=== PATIENT | male | born 1960 | race Caucasian/White ===

== ENCOUNTER 2019-06-18 13:34 | Outpatient (CLI) | payer OTHER ==
--- NOTE | 2019-06-18 16:13 | XRAY Report ---
Reason: HEEL PAIN,RIGHT Procedure Date: 06/18/2019 Accession Number: [id number] / [id number] Procedure: XRN - Foot 2 View RT CPT Code: FULL RESULT: EXAM: RIGHT FOOT RADIOGRAPHY EXAM DATE: 06/18/2019 01:47 PM. CLINICAL HISTORY: HEEL Pain, right. COMPARISON: None. TECHNIQUE: 3 views. FINDINGS: Bones: No evidence of fracture. There is a tiny posterior calcaneal bone spur. Joints: Normal. No subluxations. Soft Tissues: Normal. No soft tissue swelling. IMPRESSION: Tiny posterior calcaneal bone spur. Otherwise negative examination. RADIA
== END 2019-06-18 13:35 | disposition home or self-care (01) ==
LOC: DI.N 13:34
PROVIDERS: ATTEND Physician Assistant Medical
DX: M77.31 Calcaneal spur, right foot (principal)

== ENCOUNTER 2019-12-22 13:17 | Emergency (ER) | payer OTHER ==
--- NOTE | 2019-12-22 13:19 | ED Physician Documentation ---
PD HPI UPPER EXT INJURY - Stated complaint Stated Complaint: L HAND LAC - History of Present Illness Location: Left, Hand Review of Systems Skin: reports: Laceration (s) Neurologic: denies: Focal weakness, Numbness PD PAST MEDICAL HISTORY - Past Medical History Cardiovascular: None Respiratory: None Neuro: None - Allergies Allergies/Adverse Reactions: Allergies Allergy/AdvReac Type Severity Reaction Status Date / Time Penicillins Allergy Intermediate Unknown Verified 12/22/19 14:02 PD ED PE NORMAL - Vitals Vital signs reviewed: Yes - General General: Alert and oriented X 3, Well developed/nourished - Derm Derm: Normal color, Warm and dry - Extremities Extremities: Other (The left palm shows a 1-1/2 cm laceration/puncture consistent with a screwdriver tip. It is just subcutaneous with no foreign body and no active bleeding. It does open with hand movement. There is no feeling of swelling or pressure deeper within the palmar hand structures. There is a small area of swelling and really ecchymosis over the dorsum of the hand overlying a small surface vessel. The swelling seems to be just subcutaneous and does not feel to extend deeper. I think the 2 injuries are separate and the swelling on the dorsum is not connected to the puncture in the palm.) - Neuro Neuro: Alert and oriented X 3, No motor deficit (Good flexion of the fingers at all joints strongly without any pain in the palm), No sensory deficit Results - Vitals Vitals: Vital Signs - 24 hr 12/22/19 12/22/19 13:23 14:09 Temperature 37.2 C 36.6 C Heart Rate 83 80 Respiratory 16 16 Rate Blood Pressure 152/107 H 142/89 H O2 Saturation 98 98 Oxygen O2 Source Room air Procedures - Laceration (location) left palm Length in cm: 1.5 Wound type: Linear, Into subcut fat, Clean Neurovascular status: Sensory intact, Motor intact, Vascular intact Tendon involvement: Tendon intact Anesthesia: Lidocaine 1% with epi Wound Preparation: Wound explored, To the base. No: FB identified Skin layer closure: Nylon, Interrupted, Size #-0 - enter number (4), Sutures - enter # (4) Other: Patient tolerated well, No complications, Neurovascular intact, Dressing applied, Tetanus UTD Complexity: Simple PD MEDICAL DECISION MAKING - ED course Complexity details: considered differential (the bruising/local swelling on dorsum of the hand seems local there and subcut, not feeling swelling/tender deeper. So seems separate from the puncture in palm (he says he pulled hand away quickly when happened so might have struck back of hand).), d/w patient Departure - Departure Disposition: 01 Home, Self Care Clinical Impression: Laceration of palm Qualifiers: Encounter type: initial encounter Laterality: left Qualified Code(s): S61.412A - Laceration without foreign body of left hand, initial encounter Hand contusion Qualifiers: Encounter type: initial encounter Laterality: left Qualified Code(s): S60.222A - Contusion of left hand, initial encounter Condition: Stable Record reviewed to determine appropriate education?: Yes Instructions: ED Laceration Hand Follow-Up: Raymon Funk MD [Primary Care Provider] - Comments: I think the local swelling and early bruising on the back of the hand is a separate injury and not directly from the screwdriver puncture. Even so, there does not seem to be swelling or tenderness or muscle or tendon dysfunction through the main part of the hand so I think you are okay for regular use. For the laceration, it is okay to wash and shower. Clean off the wound twice a day with soap and water, or peroxide and water. Apply some antibiotic ointment to it to keep it moist. Also to watch for signs of infection such as purulence, redness or increasing pain. Return to your primary care or the ER at the specified time for suture removal. Suture removal 8 to 10 days. Discharge Date/Time: 12/22/19 14:10
[2019-12-22] MEDS ORDERED: TETANUS/DIPHTHERIA/PERTUSSIS 0.5 ML SYRINGE IM ONE (13:52)
[2019-12-22 14:11] VITALS: BP 142/89
== END 2019-12-22 14:10 | disposition home or self-care (01) ==
LOC: ED 13:17
DX: S61.432A Puncture wound without foreign body of left hand, initial encounter (principal); S60.222A Contusion of left hand, initial encounter; W27.0XXA Contact with workbench tool, initial encounter
CPT/HCPCS: 12001; 90471; 99283

== ENCOUNTER 2021-04-27 08:00 | Outpatient (CLI) | payer OTHER ==
[2021-04-27 12:25] LABS: BASOPHILS # (AUTO) 0.1 10^3/uL (0.0-0.1); BASOPHILS % (AUTO) 1.2 %; EOSINOPHILS # (AUTO) 0.6 10^3/uL (0.0-0.7); HCT - HEMATOCRIT 46.9 % (42.0-52.0); HGB - HEMOGLOBIN 15.7 g/dL (14.0-18.0); MEAN CORPUSCULAR HEMOGLOBIN 28.5 pg (27.0-31.0); MEAN CORPUSCULAR HGB CONC 33.5 g/dL (32.0-36.0); MEAN CORPUSCULAR VOLUME 85.3 fL (80.0-94.0); MEAN PLATELET VOLUME 10.7 fL (7.4-11.4); MONOCYTES # (AUTO) 0.9 10^3/uL (0.0-1.0); MONOCYTES % (AUTO) 11.8 %; NEUTROPHILS % (AUTO) 52.7 %; PLT - PLATELET COUNT 342 10^3/uL (130-450); RED CELL DISTRIBUTION WIDTH 13.2 % (12.0-15.0); WHITE BLOOD COUNT 7.6 x10^3/uL (4.8-10.8)
[2021-04-27 12:46] LABS: GLUCOSE, URINE (UA) NEGATIVE (NEGATIVE); KETONES,URINE (UA) 40 mg/dL (NEGATIVE); LEUKOCYTE ESTERASE, URINE NEGATIVE (NEGATIVE); NITRITE,URINE NEGATIVE (NEGATIVE); OCCULT BLOOD,URINE NEGATIVE (NEGATIVE); PROTEIN,URINE NEGATIVE (NEGATIVE); UROBILINOGEN,URINE 0.2 (NORMAL) E.U./dL (NORMAL)
[2021-04-27 12:50] LABS: CLARITY,URINE CLOUDY (CLEAR)
[2021-04-27 12:59] LABS: ALBUMIN 4.7 g/dL (3.2-5.5); ALBUMIN/GLOBULIN RATIO 1.6 (1.0-2.2); BILIRUBIN,TOTAL 1.3 mg/dL (0.2-1.0); CALCIUM 9.9 mg/dL (8.5-10.3); CREATININE 1.2 mg/dL (0.6-1.2); POTASSIUM 3.4 mmol/L (3.5-5.0); TOTAL PROTEIN 7.6 g/dL (6.7-8.2)
[2021-04-27 13:02] LABS: BILIRUBIN,URINE MODERATE (NEGATIVE); ICTOTEST,URINE POSITIVE
[2021-04-27 13:10] LABS: RBC,URINE None Seen /HPF (0-5); SQUAMOUS EPITHELIAL CELL,UR NONE SEEN (<= Few); WBC,URINE 0-3 /HPF (0-3)
[2021-04-27 13:11] LABS: AMORPHOUS SEDIMENT,UR Marked /LPF; BACTERIA,URINE Moderate /HPF (None Seen)
== END 2021-04-27 23:59 | disposition home or self-care (01) ==
LOC: LAB.N 08:00
PROVIDERS: ATTEND Family Medicine
DX: R10.9 Unspecified abdominal pain (principal)
CPT/HCPCS: 36415; 80053; 81001; 82150; 83690; 85025; 87086

== ENCOUNTER 2021-04-27 16:56 | Emergency (ER) | payer OTHER ==
[2021-04-27] MEDS ORDERED: SODIUM CHLORIDE 0.9% 1,000 ML IV STA (19:13)
--- NOTE | 2021-04-27 19:25 | ED Physician Documentation ---
PD HPI ABD PAIN - Stated complaint Stated Complaint: ABD PAIN - Chief complaint Chief Complaint: Abd Pain - History obtained from History obtained from: Patient - History of Present Illness Timing - onset: How many months ago (1.5) Timing - duration: Months (1.5) Timing - details: Gradual onset Pain level max: 8 Pain level now: 5 Quality: Cramping, Aching, Pain Location: All over / everywhere Radiation: No: Chest, , Lower back, Left flank, Left shoulder, Right flank, Right shoulder, Upper back Improved by: Other (nothing) Worsened by: Other (nothing) Associated symptoms: Nausea, Diarrhea, Constipation. No: Fever, Vomiting, Hematemesis, Melena, Hematochezia, Dysuria, Hematuria Recently seen: Clinic (seen in clinic this am for same. told to come here if pain worsened.) Review of Systems Ten Systems: 10 systems reviewed and negative Constitutional: denies: Fever, Chills Respiratory: denies: Cough GI: denies: Vomiting : denies: Dysuria, Frequency, Hesitancy Skin: denies: Rash PD PAST MEDICAL HISTORY - Past Medical History Past Medical History: Yes Cardiovascular: None Respiratory: None Neuro: None Endocrine/Autoimmune: None GI: GERD : None HEENT: None Psych: None Musculoskeletal: None Derm: None - Past Surgical History Past Surgical History: No - Present Medications Home Medications: Ambulatory Orders Medication Instructions Recorded Confirmed Meloxicam [Mobic] 7.5 mg PO BID PRN #20 tablet 04/27/21 Nitrofurantoin [Macrobid] 100 mg PO BID #10 cap 04/27/21 - Allergies Allergies/Adverse Reactions: Allergies Allergy/AdvReac Type Severity Reaction Status Date / Time Penicillins Allergy Intermediate Unknown Verified 04/27/21 17:09 - Social History Does the pt smoke?: No Smoking Status: Never smoker Does the pt drink ETOH?: No Does the pt have substance abuse?: No - Immunizations Immunizations are current?: Yes - POLST Patient has POLST: No PD ED PE NORMAL - Vitals Vital signs reviewed: Yes - General General: Alert and oriented X 3, No acute distress, Well developed/nourished - HEENT HEENT: PERRL, Moist mucous membranes - Neck Neck: Supple, no meningeal sign - Cardiac Cardiac: RRR, Strong equal pulses - Respiratory Respiratory: No respiratory distress, Clear bilaterally - Abdomen Abdomen: Soft, Non tender, Non distended, Other (mild diffuse TTP without peritoneal signs. ) - Back Back: No CVA TTP, No spinal TTP - Derm Derm: Warm and dry - Extremities Extremities: No edema - Neuro Neuro: Alert and oriented X 3 - Psych Psych: Normal mood, Normal affect Results - Vitals Vitals: Oxygen O2 Source Room air - Rads (name of study) CT abd/pelvis Radiology: Final report received, EMP read contemporaneously, See rad report RUQ US Radiology: Final report received, EMP read contemporaneously, See rad report PD MEDICAL DECISION MAKING - ED course Complexity details: reviewed results, re-evaluated patient, considered differential, d/w patient ED course: 60-year-old male with intermittent abdominal pain for the past 1.5 months. He appears to have several enlarged retroperitoneal lymph nodes. He has what appears to be potential metastatic disease throughout his liver as well. He has an appointment with his doctor in the morning. He will follow up then for further care and referral. Patient also has a UTI and we will treat him for this. Patient counseled regarding signs and symptoms for which I believe and urgent re-evaluation would be necessary. Patient with good understanding of and agreement to plan and is comfortable going home at this time This document was made in part using voice recognition software. While efforts are made to proofread this document, sound alike and grammatical errors may occur. IMPRESSION: 1. Enlarged retroperitoneal lymph nodes with infiltration of the surrounding fat as well as increased number of mesenteric lymph nodes and jacqueline mesentery appearance. Findings are nonspecific, but suspicious for a neoplastic process such as lymphoma. 2. Nonspecific small hypoattenuating lesions in the liver most likely represent small cysts or hemangiomas, although metastatic disease is not excluded. Liver protocol contrast-enhanced MRI or CT could be obtained for further evaluation if indicated clinically. 3. Focal soft tissue attenuation of the gallbladder fundus may represent small gallstones versus adenomyomatosis or wall thickening. Targeted ultrasound could be obtained if indicated clinically. No signs of acute cholecystitis. 4. Diffuse bladder wall thickening may be related to underdistention, but correlation with urinalysis is recommended to exclude cystitis. IMPRESSION: 1. Cholelithiasis without sonographic evidence of acute cholecystitis. 2. Several hepatic hypodensities, some of vascularity suspicious for neoplasm/metastatic disease. 3. Mild hepatic hyperechogenicity suggesting background of hepatic steatosis. 4. Concordant with preliminary report. Departure - Departure Disposition: 01 Home, Self Care Clinical Impression: Retroperitoneal lymphadenopathy Abdominal pain Qualifiers: Abdominal location: unspecified location Qualified Code(s): R10.9 - Unspecified abdominal pain UTI (urinary tract infection) Qualifiers: Urinary tract infection type: acute cystitis Hematuria presence: without hematuria Qualified Code(s): N30.00 - Acute cystitis without hematuria Condition: Good Instructions: ED Abdominal Pain Unkn Cause, ED UTI Cystitis Male Follow-Up: Armaan Brooks MD [Primary Care Provider] - Within 1 week SURENDRA CARRANZA MD [Physician No Access] - Tomorrow Prescriptions: Nitrofurantoin [Macrobid] 100 mg PO BID #10 cap Meloxicam [Mobic] 7.5 mg PO BID PRN #20 tablet PRN Reason: Pain Comments: Follow up with your doctor for further care. The cause of your symptoms is unclear. You have several enlarge lymph nodes in your abdomen. You have multiple gallstones. There is concern for possible metastases in your liver based upon your ultrasound. The official report will be available in the morning for Dr. Carranza. Dr. Carranza can refer you to oncology for further care. You may need further testing with Dr. Carranza as well tomorrow. ABDOMEN: Lung bases: Lung bases are clear. Heart size is normal. Solid organs: Diffuse hypoattenuation of the liver is most likely secondary to fatty infiltration. Scattered small low-density lesions in the liver are nonspecific and may represent cysts. Liver and spleen are normal in size and enhancement. There aren't palpable gallstones versus focal gallbladder wall thickening or adenomyomatosis at the fundus. Biliary system is non dilated. Pancreas demonstrates fatty infiltration. No adrenal nodules. Spleen is normal i n size. Kidneys demonstrate normal size and enhancement, without hydronephrosis. Peritoneum and bowel: Bowel loops demonstrate normal wall thickness and caliber. Normal appendix. No free fluid or air. Nodes and vessels: Increased number of mesenteric and retroperitoneal lymph nodes are seen with mild infiltration of the surrounding fat. The retroperitoneal lymph nodes are significantly increased in size, measuring up to 1.8 cm in short axis in the left para-aortic region (39/3) and 1.6 cm in the preaortic region at the level of the renal veins (36/3). Miscellaneous: No ventral hernias. PELVIS: Genitourinary: Bladder wall thickness is diffusely thickened, although the bladder is underdistended. Coarse calcifications are seen in the prostate. Miscellaneous: No inguinal hernias or adenopathy. Bones: No suspicious bony lesions. No vertebral body compression fractures. IMPRESSION: 1. Enlarged retroperitoneal lymph nodes with infiltration of the surrounding fat as well as increased number of mesenteric lymph nodes and jacqueline mesentery appearance. Findings are nonspecific, but suspicious for a neoplastic process such as lymphoma. 2. Nonspecific small hypoattenuating lesions in the liver most likely represent small cysts or hemangiomas, although metastatic disease is not excluded. Liver protocol contrast-enhanced MRI or CT could be obtained for further evaluation if indicated clinically. 3. Focal soft tissue attenuation of the gallbladder fundus may represent small gallstones versus adenomyomatosis or wall thickening. Targeted ultrasound could be obtained if indicated clinically. No signs of acute cholecystitis. 4. Diffuse bladder wall thickening may be related to underdistention, but correlation with urinalysis is recommended to exclude cystitis. Discharge Date/Time: 04/27/21 22:54
[2021-04-27] MEDS ORDERED: IOPAMIDOL-300 100 ML VIAL ONE (19:30)
[2021-04-27] MEDS ORDERED: KETOROLAC 30 MG/ML VIAL IVP STA (19:44)
[2021-04-27] MEDS ORDERED: IOPAMIDOL-300 100 ML VIAL IVP ONE (20:17)
--- NOTE | 2021-04-27 20:37 | CT Report ---
PROCEDURE: Abdomen/Pelvis W INDICATIONS: LLQ pain x 1 month CONTRAST: IV CONTRAST: Isovue 300 ml: 100 PO CONTRAST: *NO PO CONTRAST TECHNIQUE: After the administration of intravenous contrast, 5 mm thick sections acquired from the diaphragms to the symphysis. 5 mm thick coronal and sagittal reformats were acquired. For radiation dose reducti on, the following was used: automated exposure control, adjustment of mA and/or kV according to nicole ent size. COMPARISON: None. FINDINGS: Image quality: Excellent. ABDOMEN: Lung bases: Lung bases are clear. Heart size is normal. Solid organs: Diffuse hypoattenuation of the liver is most likely secondary to fatty infiltration. S cattered small low-density lesions in the liver are nonspecific and may represent cysts. Liver and sp man are normal in size and enhancement. There aren't palpable gallstones versus focal gallbladder w all thickening or adenomyomatosis at the fundus. Biliary system is non dilated. Pancreas demonstrate s fatty infiltration. No adrenal nodules. Spleen is normal in size. Kidneys demonstrate normal size and enhancement, without hydronephrosis. Peritoneum and bowel: Bowel loops demonstrate normal wall thickness and caliber. Normal appendix. No free fluid or air. Nodes and vessels: Increased number of mesenteric and retroperitoneal lymph nodes are seen with mild infiltration of the surrounding fat. The retroperitoneal lymph nodes are significantly increased in s ize, measuring up to 1.8 cm in short axis in the left para-aortic region (39/3) and 1.6 cm in the pre aortic region at the level of the renal veins (36/3). Miscellaneous: No ventral hernias. PELVIS: Genitourinary: Bladder wall thickness is diffusely thickened, although the bladder is underdistended . Coarse calcifications are seen in the prostate. Miscellaneous: No inguinal hernias or adenopathy. Bones: No suspicious bony lesions. No vertebral body compression fractures. IMPRESSION: 1. Enlarged retroperitoneal lymph nodes with infiltration of the surrounding fat as well as increase d number of mesenteric lymph nodes and jacqueline mesentery appearance. Findings are nonspecific, but susp icious for a neoplastic process such as lymphoma. 2. Nonspecific small hypoattenuating lesions in the liver most likely represent small cysts or heman giomas, although metastatic disease is not excluded. Liver protocol contrast-enhanced MRI or CT could be obtained for further evaluation if indicated clinically. 3. Focal soft tissue attenuation of the gallbladder fundus may represent small gallstones versus levi nomyomatosis or wall thickening. Targeted ultrasound could be obtained if indicated clinically. No si gns of acute cholecystitis. 4. Diffuse bladder wall thickening may be related to underdistention, but correlation with urinalysi s is recommended to exclude cystitis. Reviewed by: Alek Hicks MD on 04/27/2021 8:36 PM PDT Approved by: Alek Hicks MD on 04/27/2021 8:36 PM PDT Station ID: [id number]
[2021-04-27 22:34] VITALS: BP 144/97
--- NOTE | 2021-04-28 09:05 | Ultrasound Report ---
PROCEDURE: Abdomen Limited INDICATIONS: abnormal gallblabber on CT TECHNIQUE: Real-time focused scanning was performed of the abdomen, with image documentation. COMPARISON: None. Correlation made to CT abdomen pelvis 04/27/2021 FINDINGS: The pancreas is obscured. The liver is normal size with a smooth margin. There is a backgr ound of mild hyperechogenicity. There are several hypoechoic lesions scattered throughout the liver, ranging in size from a few millimeters to 1.6 cm. One of the larger liver lesions has trace periphera l vascular flow. The gallbladder demonstrates a wall echo shadow pattern, filled with shadowing gallstones. The wall i s of normal thickness at 2.4 mm. No pericholecystic fluid or sonographic Recio sign. The common duct is normal at 5 mm. The kidney is normal size at 11.7 cm in length and demonstrates a diffusely lobulated contour. No hyd ronephrosis or stone. No free fluid in the right upper quadrant. IMPRESSION: 1. Cholelithiasis without sonographic evidence of acute cholecystitis. 2. Several hepatic hypodensities, some of vascularity suspicious for neoplasm/metastatic disease. 3. Mild hepatic hyperechogenicity suggesting background of hepatic steatosis. 4. Concordant with preliminary report. Reviewed by: Nikki Sanchez MD on 04/28/2021 9:03 AM PDT Approved by: Nikki Sanchez MD on 04/28/2021 9:03 AM PDT Station ID: [id number]
== END 2021-04-27 22:54 | disposition home or self-care (01) ==
LOC: ED 16:56
DX: R10.84 Generalized abdominal pain (principal); R59.0 Localized enlarged lymph nodes; N30.00 Acute cystitis without hematuria; K76.9 Liver disease, unspecified; K80.20 Calculus of gallbladder without cholecystitis without obstruction
CPT/HCPCS: 74177; 76705; 96374; 99284; Q9967

== ENCOUNTER 2021-05-04 03:05 | Emergency (ER) | payer OTHER ==
[2021-05-04] MEDS ORDERED: HYDROmorphone 1 MG/ML CARPUJECT IVP STA (03:39)
[2021-05-04] MEDS ORDERED: KETOROLAC 15 MG/ML VIAL IVP STA (03:39)
[2021-05-04] MEDS ORDERED: SODIUM CHLORIDE 0.9% 1,000 ML IV STA (03:39)
[2021-05-04] MEDS ORDERED: FAMOTIDINE 20 MG/2 ML VIAL IVP STA (03:40)
--- NOTE | 2021-05-04 03:43 | ED Physician Documentation ---
History of Present Illness - Stated complaint Stated Complaint: ABD PX - Chief complaint Chief Complaint: Abd Pain - History obtained from History obtained from: Patient - Additonal information Additional information: 60-year-old man with recent ED visit 7 days ago with diagnosis of possible metastatic cancer, gallstones, and UTI, presents with persistent chronic abdominal pain for the past is acutely worsening in the past 24 hours. Patient has been taking Tylenol and ibuprofen alternating [id number] without relief. He has an appointment with the surgeon today at 10:45 AM for biopsy of retroperitoneal lymph nodes Concerning for cancer. Pain is located in the bilateral upper quadrants, aching, constant, better after eating oatmeal, radiating diffusely to the entire abdomen, 06/27, gradual onset. denies urinary sx, diarrhea, fever. endorses chronic back pain that is nonworsening. Review of Systems Ten Systems: 10 systems reviewed and negative Constitutional: denies: Fever, Chills Cardiac: denies: Chest pain / pressure Respiratory: denies: Dyspnea GI: reports: Abdominal Pain. denies: Nausea, Vomiting, Diarrhea : denies: Dysuria PD PAST MEDICAL HISTORY - Past Medical History Past Medical History: Yes Cardiovascular: None Respiratory: None Neuro: None Endocrine/Autoimmune: None GI: GERD, Other : None HEENT: None Psych: None Musculoskeletal: None Derm: None Other Past Medical History: liver CA - Past Surgical History Past Surgical History: No - Present Medications Home Medications: Ambulatory Orders Medication Instructions Recorded Confirmed Meloxicam [Mobic] 7.5 mg PO BID PRN #20 tablet 04/27/21 05/04/21 Nitrofurantoin [Macrobid] 100 mg PO BID #10 cap 04/27/21 05/04/21 Oxycodone HCl/Acetaminophen 1 each PO Q4H PRN #10 tablet 05/04/21 [Percocet 10-325 mg Tablet] Potassium Chloride [Klor-Con 10] 10 meq PO QDAC #10 tab 05/04/21 - Allergies Allergies/Adverse Reactions: Allergies Allergy/AdvReac Type Severity Reaction Status Date / Time Penicillins Allergy Intermediate Unknown Verified 04/27/21 17:09 - Social History Does the pt smoke?: No Smoking Status: Never smoker Does the pt drink ETOH?: No Does the pt have substance abuse?: No - Immunizations Immunizations are current?: Yes - POLST Patient has POLST: No PD ED PE NORMAL - Vitals Vital signs reviewed: Yes - General General: Alert and oriented X 3, Other (Mild stressLarge body habitus.) - HEENT HEENT: Atraumatic, PERRL, EOMI - Neck Neck: Supple, no meningeal sign - Cardiac Cardiac: RRR - Respiratory Respiratory: No respiratory distress, Clear bilaterally - Abdomen Abdomen: Non tender, Non distended, Other (Discomfort to palpation bilateral upper quadrant. Negative Recio sign) - Back Back: No CVA TTP - Derm Derm: Normal color, Warm and dry - Extremities Extremities: No deformity - Neuro Neuro: Alert and oriented X 3 - Psych Psych: Normal mood, Normal affect Results - Vitals Vitals: Vital Signs - 24 hr 05/04/21 05/04/21 05/04/21 03:10 03:22 04:13 Temperature 36.5 C 36.5 C Heart Rate 69 69 60 Respiratory 16 16 16 Rate Blood Pressure 137/97 H 137/97 H 122/87 H O2 Saturation 97 97 93 Oxygen O2 Source Room air - EKG (time done) 0429 Rate: Rate (enter#) (55) Rhythm: Sinus bradycardia [place]: Normal Intervals: Normal [place] QRS: Normal Ischemia: T wave inversion (TWI in leads III and avf. no prior available) - Labs Labs: Laboratory Tests 05/04/21 05/04/21 03:35 03:35 WBC 7.7 RBC 5.13 Hgb 14.8 Hct 42.7 MCV 83.2 MCH 28.8 MCHC 34.7 RDW 13.3 Plt Count 294 MPV 9.8 Neut # (Auto) 4.3 Lymph # (Auto) 1.7 [place] # (Auto) 0.9 Eos # (Auto) 0.7 Baso # (Auto) 0.1 Absolute Nucleated RBC 0.00 Nucleated RBC % 0.0 Sodium 137 Potassium 2.8 L Chloride 101 Carbon Dioxide 22 Anion Gap 14.0 H BUN 12 Creatinine 1.1 Estimated GFR (MDRD) 68 L Glucose 123 H Calcium 9.5 Total Bilirubin 1.1 H AST 45 H ALT 49 Alkaline Phosphatase 81 Total Protein 7.2 Albumin 4.4 Globulin 2.8 Albumin/Globulin Ratio 1.6 Lipase 31 PD MEDICAL DECISION MAKING - ED course ED course: 60-year-old man with likely metastatic disease presents with chronic upper abdominal pain worsening tonight. We will treat symptomatically, evaluate basic labs, complete him feeling better so he can follow-up for his biopsy preop appointment today. Note that K was 2.8. patient denies n/v/d or muscle weakness/symptoms related to this. His EKG shows inferior TWI which could be consistent with hypokalemia. will administer oral and IV potassium, IV mag, reevaluate. Departure - Departure Clinical Impression: Hypokalemia, Abdominal pain Condition: Good Instructions: Abdominal Pain Prescriptions: Potassium Chloride [Klor-Con 10] 10 meq PO QDAC #10 tab Oxycodone HCl/Acetaminophen [Percocet 10-325 mg Tablet] 1 each PO Q4H PRN #10 tablet PRN Reason: Pain Comments: You are seen in the emergency department for abdominal pain and low potassium. You provided a potassium supplement and repeated your blood work with improvement. You should follow-up with your primary Dr. Funk in regards to your low potassium to have it evaluated further. Please also follow-up at your surgical appointment at 10:45 AM today.Return to the emergency department you have any new or worsening symptoms or other concerns.
[2021-05-04 03:45] LABS: BASOPHILS # (AUTO) 0.1 10^3/uL (0.0-0.1); BASOPHILS % (AUTO) 1.2 %; EOSINOPHILS # (AUTO) 0.7 10^3/uL (0.0-0.7); EOSINOPHILS % (AUTO) 9.2 %; HCT - HEMATOCRIT 42.7 % (42.0-52.0); HGB - HEMOGLOBIN 14.8 g/dL (14.0-18.0); LYMPHOCYTES # (AUTO) 1.7 10^3/uL (1.5-3.5); LYMPHOCYTES % (AUTO) 21.7 %; MEAN CORPUSCULAR HEMOGLOBIN 28.8 pg (27.0-31.0); MEAN CORPUSCULAR HGB CONC 34.7 g/dL (32.0-36.0); MEAN CORPUSCULAR VOLUME 83.2 fL (80.0-94.0); MEAN PLATELET VOLUME 9.8 fL (7.4-11.4); MONOCYTES # (AUTO) 0.9 10^3/uL (0.0-1.0); MONOCYTES % (AUTO) 11.3 %; NEUTROPHILS # (AUTO) 4.3 10^3/uL (1.5-6.6); NEUTROPHILS % (AUTO) 56.3 %; PLT - PLATELET COUNT 294 10^3/uL (130-450); RED BLOOD COUNT 5.13 10^6/uL (4.70-6.10); RED CELL DISTRIBUTION WIDTH 13.3 % (12.0-15.0); WHITE BLOOD COUNT 7.7 x10^3/uL (4.8-10.8)
[2021-05-04 03:59] LABS: ALBUMIN 4.4 g/dL (3.2-5.5); ALBUMIN/GLOBULIN RATIO 1.6 (1.0-2.2); BILIRUBIN,TOTAL 1.1 mg/dL (0.2-1.0); CALCIUM 9.5 mg/dL (8.5-10.3); CREATININE 1.1 mg/dL (0.6-1.2); POTASSIUM 2.8 mmol/L (3.5-5.0); TOTAL PROTEIN 7.2 g/dL (6.7-8.2)
[2021-05-04] MEDS ORDERED: POTASSIUM CHLOR 10 MEQ/100 ML 10 MEQ/100 ML BAG IV STA (04:23)
[2021-05-04] MEDS ORDERED: POTASSIUM CHLORIDE 20 MEQ/15 ML UDC PO STA (04:23)
[2021-05-04] MEDS ORDERED: MAGNESIUM SULFATE 2 GRAM 2 GM/50 ML BAG IV ONE (04:45)
[2021-05-04] MEDS ORDERED: oxyCODONE 5 MG TABLET PO STA (06:59)
[2021-05-04] MEDS ORDERED: FAMOTIDINE 20 MG TABLET PO STA (07:09)
[2021-05-04 07:14] VITALS: BP 142/80
== END 2021-05-04 07:39 | disposition home or self-care (01) ==
LOC: ED 03:05
DX: E87.6 Hypokalemia (principal); R10.11 Right upper quadrant pain
CPT/HCPCS: 36415; 80053; 83690; 83735; 84132; 85025; 93005; 96361; 96365; 96368; 96375; 99284; A9270; J1170; 85610

== ENCOUNTER 2021-05-06 01:56 | Emergency (ER) | payer OTHER ==
--- NOTE | 2021-05-06 02:08 | ED Physician Documentation ---
PD HPI ABD PAIN - Stated complaint Stated Complaint: AB PX - Chief complaint Chief Complaint: Abd Pain - History obtained from History obtained from: Patient - History of Present Illness Timing - onset: How many weeks ago (few) Timing - duration: Weeks (few) Timing - details: Gradual onset, Still present (worse the past few days), Waxing and waning Quality: Cramping, Aching, Pain Location: All over / everywhere (mid to lower abd more and toward his back as well.) Radiation: Left flank, Right flank Improved by: No: Eating Worsened by: Palpation. No: Eating, Moving Associated symptoms: Nausea, Constipation (firmer stools recently since on pain meds.). No: Fever, Vomiting, Diarrhea, Melena, Near syncope / syncope Similar symptoms before: No diagnosis (was found to have abd/retroperitoneal adenopathy concerning for lymphoma on recent CT and gallstones on CT/US but not appearing cholecystitis.) Recently seen: Clinic (seen by Dr. Theodore, surgery, yesterday regarding possible biopsies of lymph nodes. Pt states not approachable by him, but referring to Oncology at [facility]. Pt called the [facility] earlier today and was told referral had not gone through yet.), Emergency Dept (couple days ago and the week prior. Recent CT abd and US upper abd.), Other (patient was getting rx for pain meds from PMD but delay at pharmacy due to insurance or the Rx getting called in correctly, per patient. It might be available tomorrow, but pt not sure. Pain increased significantly and now he is without meds too.) Review of Systems Constitutional: denies: Fever, Chills Nose: denies: Rhinorrhea / runny nose, Congestion Throat: denies: Sore throat Cardiac: denies: Chest pain / pressure Respiratory: denies: Dyspnea, Cough GI: reports: Abdominal Pain, Nausea. denies: Vomiting, Diarrhea : denies: Dysuria, Frequency Musculoskeletal: denies: Extremity swelling Neurologic: denies: Generalized weakness, Near syncope PD PAST MEDICAL HISTORY - Past Medical History Cardiovascular: None Respiratory: None Neuro: None Endocrine/Autoimmune: None GI: GERD, Other : None HEENT: None Psych: None Musculoskeletal: None Derm: None - Past Surgical History Past Surgical History: No - Present Medications Home Medications: Ambulatory Orders Medication Instructions Recorded Confirmed Meloxicam [Mobic] 7.5 mg PO BID PRN #20 tablet 04/27/21 05/04/21 Nitrofurantoin [Macrobid] 100 mg PO BID #10 cap 04/27/21 05/04/21 Oxycodone HCl/Acetaminophen 1 each PO Q4H PRN #10 tablet 05/04/21 [Percocet 10-325 mg Tablet] Potassium Chloride [Klor-Con 10] 10 meq PO QDAC #10 tab 05/04/21 Sennosides/Docusate Sodium [Senna 1 each PO DAILY #30 tablet 05/06/21 Plus Tablet] oxyCODONE [Roxicodone] 5 mg PO Q4-6H PRN #12 tablet 05/06/21 - Allergies Allergies/Adverse Reactions: Allergies Allergy/AdvReac Type Severity Reaction Status Date / Time Penicillins Allergy Intermediate Unknown Verified 05/06/21 02:08 - Social History Does the pt smoke?: No Smoking Status: Never smoker Does the pt drink ETOH?: No Does the pt have substance abuse?: No - Immunizations Immunizations are current?: Yes - POLST Patient has POLST: No PD ED PE NORMAL - Vitals Vital signs reviewed: Yes - General General: Alert and oriented X 3, Well developed/nourished, Other (appears in considerable pain from abd/flanks. No localized tenderness. No percussion nor rebound. ) - Neck Neck: Supple, no meningeal sign, No adenopathy - Cardiac Cardiac: RRR, No murmur - Respiratory Respiratory: No respiratory distress, Clear bilaterally - Abdomen Abdomen: Soft, Non distended, No organomegaly. No: Normal bowel sounds (diminished) - Male Male : Deferred - Rectal Rectal: Deferred - Back Back: No spinal TTP - Derm Derm: Normal color, Warm and dry Results - Vitals Vitals: Vital Signs - 24 hr 05/06/21 05/06/21 01:59 02:00 Temperature 36.5 C Heart Rate 78 Respiratory 20 18 Rate Blood Pressure 133/80 H O2 Saturation 100 Oxygen O2 Source Room air PD MEDICAL DECISION MAKING - ED course Complexity details: reviewed old records, reviewed results, considered differential (recent ER visits for same and Rx for pain meds but out of them (rx was for 10 only). PMD was sending Rx to pharmacy but not ready as yet. Patient said pharmacist told him might be available tomorrow. )juwan/w patient Departure - Departure Disposition: 01 Home, Self Care Clinical Impression: Abdominal lymphadenopathy, Abdominal pain Condition: Stable Record reviewed to determine appropriate education?: Yes Instructions: ED Abdominal Pain Unkn Cause Follow-Up: Armaan Brooks MD [Primary Care Provider] - Prescriptions: oxyCODONE [Roxicodone] 5 mg PO Q4-6H PRN #12 tablet PRN Reason: Pain Sennosides/Docusate Sodium [Senna Plus Tablet] 1 each PO DAILY #30 tablet Comments: Stay well-hydrated. Continue with some mild dosing anti-inflammatory such as the meloxicam or naproxen. Take it with food so it does not bother your stomach. To that add Tylenol 4 times a day. Add oxycodone if needed in addition for pain. Uses stool softener/laxative daily to help prevent constipation from the pain medicines. Follow-up with your primary care regarding referral to oncology for further evaluation.
[2021-05-06] MEDS ORDERED: HYDROmorphone 2 MG/ML VIAL IM STA (02:25)
[2021-05-06] MEDS ORDERED: oxyCODONE/ACET 5/325 Prepack 4 PO STA (02:26)
[2021-05-06] MEDS ORDERED: KETOROLAC 15 MG/ML VIAL IM STA (02:26)
[2021-05-06] MEDS ORDERED: DOCUSATE SODIUM 100 MG CAPSULE PO STA (02:26)
[2021-05-06 03:14] VITALS: BP 128/91
== END 2021-05-06 03:29 | disposition home or self-care (01) ==
LOC: ED 01:56
DX: R59.0 Localized enlarged lymph nodes (principal)
CPT/HCPCS: 96372; 99284; A9270; J1170

== ENCOUNTER 2021-05-07 18:08 | Emergency (ER) | payer OTHER ==
[2021-05-07 18:48] LABS: BASOPHILS % (AUTO) 0.4 %; HCT - HEMATOCRIT 44.5 % (42.0-52.0); HGB - HEMOGLOBIN 14.9 g/dL (14.0-18.0); LYMPHOCYTES # (AUTO) 0.8 10^3/uL (1.5-3.5); LYMPHOCYTES % (AUTO) 9.2 %; MEAN CORPUSCULAR HEMOGLOBIN 28.4 pg (27.0-31.0); MEAN CORPUSCULAR HGB CONC 33.5 g/dL (32.0-36.0); MEAN CORPUSCULAR VOLUME 84.8 fL (80.0-94.0); MEAN PLATELET VOLUME 9.5 fL (7.4-11.4); MONOCYTES # (AUTO) 0.2 10^3/uL (0.0-1.0); MONOCYTES % (AUTO) 2.8 %; NEUTROPHILS # (AUTO) 7.2 10^3/uL (1.5-6.6); NEUTROPHILS % (AUTO) 87.4 %; PLT - PLATELET COUNT 330 10^3/uL (130-450); RED BLOOD COUNT 5.25 10^6/uL (4.70-6.10); RED CELL DISTRIBUTION WIDTH 13.6 % (12.0-15.0); WHITE BLOOD COUNT 8.2 x10^3/uL (4.8-10.8)
[2021-05-07 19:01] LABS: ALBUMIN 4.4 g/dL (3.2-5.5); ALBUMIN/GLOBULIN RATIO 1.3 (1.0-2.2); CALCIUM 9.7 mg/dL (8.5-10.3); POTASSIUM 3.6 mmol/L (3.5-5.0); TOTAL PROTEIN 7.7 g/dL (6.7-8.2)
[2021-05-07] MEDS ORDERED: HYDROmorphone 2 MG TABLET PO STA (19:24)
--- NOTE | 2021-05-07 19:45 | ED Physician Documentation ---
PD HPI ABD PAIN - Stated complaint Stated Complaint: abd px - Chief complaint Chief Complaint: Abd Pain - History obtained from History obtained from: Patient - History of Present Illness Timing - onset: How many weeks ago (several weeks) Timing - duration: Weeks Pain level max: 10 Pain level now: 10 Quality: Aching, Sharp, Pain Location: LLQ Radiation: Lower back, Left flank - Additional information Additional information: Patient is a 60-year-old male who presents to the emergency department with left-sided abdominal pain. He states it feels like it radiates from his back down to his groin. He has been seen here several times for same. States the oxycodone is not helping his pain. Feels better when he stands up, worse with lying down. He states it feels better to lean forward as well. No numbness or tingling in his legs. He has recently been diagnosed with several enlarged lymph nodes throughout his abdomen and concern for possible metastatic cancer. He is awaiting an oncology appointment. No fevers. No chills. No nausea or vomiting. Review of Systems Ten Systems: 10 systems reviewed and negative Constitutional: denies: Fever, Chills Throat: denies: Sore throat Cardiac: denies: Chest pain / pressure Respiratory: denies: Dyspnea, Cough Skin: denies: Rash Musculoskeletal: denies: Neck pain Neurologic: denies: Focal weakness, Numbness, Headache PD PAST MEDICAL HISTORY - Past Medical History Cardiovascular: None Respiratory: None Neuro: None Endocrine/Autoimmune: None GI: GERD, Other : None HEENT: None Psych: None Musculoskeletal: None Derm: None - Past Surgical History Past Surgical History: No - Present Medications Home Medications: Ambulatory Orders Medication Instructions Recorded Confirmed Meloxicam [Mobic] 7.5 mg PO BID PRN #20 tablet 04/27/21 05/07/21 Oxycodone HCl/Acetaminophen 1 each PO Q4H PRN #10 tablet 05/04/21 05/07/21 [Percocet 10-325 mg Tablet] Potassium Chloride [Klor-Con 10] 10 meq PO QDAC #10 tab 05/04/21 05/07/21 Sennosides/Docusate Sodium [Senna 1 each PO DAILY #30 tablet 05/06/21 05/07/21 Plus Tablet] oxyCODONE [Roxicodone] 5 mg PO Q4-6H PRN #12 tablet 05/06/21 05/07/21 Dicyclomine [Bentyl] 10 mg PO TID #21 cap 05/07/21 05/07/21 Famotidine [Pepcid] 20 mg PO DAILY #20 tablet 05/07/21 05/07/21 Gabapentin [Neurontin] 300 mg PO TID #60 cap 05/07/21 Meloxicam [Mobic] 7.5 mg PO BID PRN #20 tablet 05/07/21 dexAMETHasone [Decadron] 4 mg PO DAILY #5 tablet 05/07/21 05/07/21 methocarbamoL [Robaxin] 500 mg PO Q6H PRN #20 tablet 05/07/21 - Allergies Allergies/Adverse Reactions: Allergies Allergy/AdvReac Type Severity Reaction Status Date / Time Penicillins Allergy Intermediate Unknown Verified 05/07/21 18:22 - Social History Does the pt smoke?: No Smoking Status: Never smoker Does the pt drink ETOH?: No Does the pt have substance abuse?: No - Immunizations Immunizations are current?: Yes - POLST Patient has POLST: No PD ED PE NORMAL - Vitals Vital signs reviewed: Yes - General General: Alert and oriented X 3, No acute distress - HEENT HEENT: Moist mucous membranes - Neck Neck: Supple, no meningeal sign - Cardiac Cardiac: RRR - Respiratory Respiratory: No respiratory distress, Clear bilaterally - Abdomen Abdomen: Soft, Non tender, Non distended - Back Back: No spinal TTP (No midline tenderness to palpation or percussion.) - Derm Derm: Warm and dry - Extremities Extremities: No edema, No calf tenderness / cord - Neuro Neuro: Alert and oriented X 3, No motor deficit, No sensory deficit, Other (Normal bilateral lower extremity patellar and ankle jerk reflexes. Normal great toe extension bilaterally. no saddle anesthesia) - Psych Psych: Normal mood, Normal affect Results - Vitals Vitals: Vital Signs - 24 hr 05/07/21 05/07/21 18:18 20:35 Temperature 36.8 C Heart Rate 80 87 Respiratory 18 28 H Rate Blood Pressure 151/83 H 140/100 H O2 Saturation 100 100 Oxygen O2 Source Room air - Labs Labs: Laboratory Tests 05/07/21 05/07/21 05/07/21 18:43 18:43 20:10 WBC 8.2 RBC 5.25 Hgb 14.9 Hct 44.5 MCV 84.8 MCH 28.4 MCHC 33.5 RDW 13.6 Plt Count 330 MPV 9.5 Neut # (Auto) 7.2 H Lymph # (Auto) 0.8 L [place] # (Auto) 0.2 Eos # (Auto) 0.0 Baso # (Auto) 0.0 Absolute Nucleated RBC 0.00 Nucleated RBC % 0.0 Sodium 134 L Potassium 3.6 Chloride 97 L Carbon Dioxide 24 Anion Gap 13.0 BUN 13 Creatinine 1.0 Estimated GFR (MDRD) 76 L Glucose 175 H Calcium 9.7 Total Bilirubin 1.0 AST 44 H ALT 70 H Alkaline Phosphatase 126 H Total Protein 7.7 Albumin 4.4 Globulin 3.3 Albumin/Globulin Ratio 1.3 Lipase 21 L Urine Color YELLOW Urine Clarity CLEAR Urine pH 6.0 Ur Specific [place] 1.010 Urine Protein NEGATIVE Urine Glucose (UA) NEGATIVE Urine Ketones TRACE Urine Occult Blood NEGATIVE Urine Nitrite NEGATIVE Urine Bilirubin NEGATIVE Urine Urobilinogen 0.2 (NORMAL) Ur Leukocyte Esterase NEGATIVE Ur Microscopic Review NOT INDICATED Urine Culture Comments NOT INDICATED PD MEDICAL DECISION MAKING - ED course Complexity details: reviewed old records, reviewed results, re-evaluated patient, considered differential (No cauda equina, no spinal epidural abscess, no fracture, no aortic dissection or evidence of aneursym rupture), d/w patient ED course: Patient is a 60-year-old male who presents to the emergency department with what appears to be likely spinal stenosis. He is having what appears to be radicular pain from the low lumbar area to the lower abdomen. This does not appear to be related to the enlarged lymph nodes found on CT scan recently. His pain greatly improved with gabapentin, Robaxin and meloxicam. We will prescribe this at home. Patient is ambulating well in the emergency department. He does state that he often leans forward on a grocery cart because it makes his back feel better. Will trial him with a walker so he can lean slightly forward with this as well. Patient counseled regarding signs and symptoms for which I believe and urgent re-evaluation would be necessary. Patient with good understanding of and agreement to plan and is comfortable going home at this time This document was made in part using voice recognition software. While efforts are made to proofread this document, sound alike and grammatical errors may occur. Departure - Departure Disposition: Home, Self Care Clinical Impression: Lumbar radiculopathy Lumbar stenosis Qualifiers: Neurogenic claudication status: without neurogenic claudication Qualified Code(s): M48.061 - Spinal stenosis, lumbar region without neurogenic claudication Condition: Good Instructions: Lumbar Radiculopathy Follow-Up: Armaan Brooks MD [Primary Care Provider] - Within 3 Days Prescriptions: Meloxicam [Mobic] 7.5 mg PO BID PRN #20 tablet PRN Reason: Pain Gabapentin [Neurontin] 300 mg PO TID #60 cap methocarbamoL [Robaxin] 500 mg PO Q6H PRN #20 tablet PRN Reason: muscle spasm Comments: Please follow-up with your doctor for further care. They may want to refer you to physical therapy and a medical language specialist who may want to talk about injections for your back as well as possible radiofrequency ablation for the nerve if this continues to cause pain. Your doctor will likely want to perform an MRI of your back as well. Your prescriptions were sent to [facility] in [facility].
[2021-05-07] MEDS ORDERED: LORazepam 1 MG TABLET PO STA ×2 (20:09→20:43)
[2021-05-07 20:24] LABS: BILIRUBIN,URINE NEGATIVE (NEGATIVE); GLUCOSE, URINE (UA) NEGATIVE (NEGATIVE); KETONES,URINE (UA) TRACE mg/dL (NEGATIVE); LEUKOCYTE ESTERASE, URINE NEGATIVE (NEGATIVE); NITRITE,URINE NEGATIVE (NEGATIVE); OCCULT BLOOD,URINE NEGATIVE (NEGATIVE); PROTEIN,URINE NEGATIVE (NEGATIVE); UROBILINOGEN,URINE 0.2 (NORMAL) E.U./dL (NORMAL)
[2021-05-07 20:28] LABS: CLARITY,URINE CLEAR (CLEAR)
[2021-05-07] MEDS ORDERED: MELOXICAM 7.5 MG TABLET PO STA (20:43)
[2021-05-07] MEDS ORDERED: methocarbamoL 500 MG TABLET PO STA (21:36)
[2021-05-07] MEDS ORDERED: GABAPENTIN 100 MG CAPSULE PO STA (21:36)
[2021-05-07 22:49] VITALS: BP 125/71
== END 2021-05-07 22:48 | disposition home or self-care (01) ==
LOC: ED 18:08
DX: M54.16 Radiculopathy, lumbar region (principal); M48.061 Spinal stenosis, lumbar region without neurogenic claudication; R59.9 Enlarged lymph nodes, unspecified; R10.84 Generalized abdominal pain
CPT/HCPCS: 36415; 51798; 74177; 80053; 81003; 83605; 83690; 85025; 96361; 96374; 96375; 99283; 99284; A9270; J1170; J8499; Q9967; 81001; 87086

== ENCOUNTER 2021-05-14 07:57 | Outpatient (CLI) | payer OTHER ==
[2021-05-14] MEDS ORDERED: BUFFERED LIDOCAINE 10 ML SYRINGE ONE (08:45)
[2021-05-14] MEDS ORDERED: LACTATED RINGERS 1,000 ML IV ONE ×2 (09:09→11:10)
[2021-05-14 09:30] LABS: BASOPHILS # (AUTO) 0.1 10^3/uL (0.0-0.1); BASOPHILS % (AUTO) 0.5 %; EOSINOPHILS # (AUTO) 0.2 10^3/uL (0.0-0.7); EOSINOPHILS % (AUTO) 1.9 %; HCT - HEMATOCRIT 43.8 % (42.0-52.0); HGB - HEMOGLOBIN 14.7 g/dL (14.0-18.0); LYMPHOCYTES # (AUTO) 2.6 10^3/uL (1.5-3.5); LYMPHOCYTES % (AUTO) 22.1 %; MEAN CORPUSCULAR HEMOGLOBIN 28.8 pg (27.0-31.0); MEAN CORPUSCULAR HGB CONC 33.6 g/dL (32.0-36.0); MEAN CORPUSCULAR VOLUME 85.7 fL (80.0-94.0); MEAN PLATELET VOLUME 9.1 fL (7.4-11.4); MONOCYTES # (AUTO) 1.2 10^3/uL (0.0-1.0); MONOCYTES % (AUTO) 9.7 %; NEUTROPHILS # (AUTO) 7.7 10^3/uL (1.5-6.6); NEUTROPHILS % (AUTO) 65.2 %; PLT - PLATELET COUNT 322 10^3/uL (130-450); RED BLOOD COUNT 5.11 10^6/uL (4.70-6.10); RED CELL DISTRIBUTION WIDTH 13.9 % (12.0-15.0); WHITE BLOOD COUNT 11.9 x10^3/uL (4.8-10.8)
[2021-05-14 09:38] LABS: INR 1.1 (0.8-1.2); PT - PROTHROMBIN TIME 12.6 secs (9.9-12.6)
[2021-05-14 09:45] LABS: PARTIAL THROMBOPLASTIN TIME 25.4 secs (24.9-33.3)
[2021-05-14] MEDS ORDERED: fentaNYL 100 MCG/2 ML VIAL ONE (10:11)
[2021-05-14] MEDS ORDERED: MIDAZOLAM 2 MG/2 ML VIAL ONE (10:11)
[2021-05-14] MEDS ORDERED: IOPAMIDOL-300 50 ML VIAL ONE ×2 (10:22→11:11)
[2021-05-14] MEDS ORDERED: IOPAMIDOL-300 50 ML VIAL IVP ONE (11:50)
[2021-05-14 12:03] VITALS: BP 129/90
--- NOTE | 2021-05-14 13:07 | CT Report ---
PROCEDURE: LIVER BX PERC Sedation analgesia for minutes. INDICATIONS: LIVER MASS, RETROPERITONEAL LYMPHADENOPATHY TECHNIQUE: The indications, alternatives, benefits, risks, and possible complications of the procedure were comm unicated to the patient. Informed written consent from the patient was obtained and placed in the art. Continuous EKG and hemodynamic monitoring was started by trained personnel. For radiation dose reduction, the following was used: automated exposure control, adjustment of mA and/or kV according to patient size. The patient was brought to the CT suite and mobile electronics installer spiral CT imaging was performed with localization g rid. The appropriate site for percutaneous access to the biopsy target was marked, was prepped and d raped sterilely, and was infused with local anaesthesia. Under CT guidance, a core biopsy trocar and needle set was advanced to the biopsy target, and specimen(s) were obtained. The trocar and needle were then removed, and the patient was sent for post-procedure monitoring. COMPARISON: CT abdomen and pelvis with contrast, 04/27/2021 and 05/07/2021. Ultrasound abdomen 04/27/20 21.. FINDINGS: Small liver lesions seen on contrast-enhanced CT are not well seen on noncontrast images. A cause of variations increased emotions, the small liver lesions cannot be biopsied under CT guidanc e. IMPRESSION: Unsuccessful attempt of CT-guided biopsy of suspicious liver lesions. If clinically shaina cated, a CT may be helpful for further evaluation. Reviewed by: Nestor Burgess MD on 05/14/2021 1:06 PM PDT Approved by: Nestor Burgess MD on 05/14/2021 1:06 PM PDT Station ID: [id number]
== END 2021-05-14 07:58 | disposition home or self-care (01) ==
LOC: DI 07:57
PROVIDERS: ATTEND Family Medicine
DX: R16.0 Hepatomegaly, not elsewhere classified (principal); R59.0 Localized enlarged lymph nodes; R10.9 Unspecified abdominal pain
CPT/HCPCS: 36415; 47000; 77012; 85025; 85610; 85730; J7120; Q9967

== ENCOUNTER 2021-05-24 09:33 | Emergency (ER) | payer OTHER ==
--- NOTE | 2021-05-24 10:05 | ED Physician Documentation ---
PD HPI ABD PAIN - Stated complaint Stated Complaint: ABD/BACK PX - Chief complaint Chief Complaint: Abd Pain - History obtained from History obtained from: Patient - History of Present Illness Timing - onset: Today, Yesterday Timing - duration: Days (09/19) Timing - details: Gradual onset, Waxing and waning (but much worse and consistent this morning despite PO meds at home.) Quality: Cramping, Aching, Pain Radiation: Lower back. No: Chest, Left flank, Right flank Improved by: BM (had not had BM for 3-4 days, until small one last night with cramps improving temporarily after.) Worsened by: Moving. No: Position Associated symptoms: Nausea, Constipation. No: Fever, Vomiting, Diarrhea Similar symptoms before: Diagnosis (has retroperitoneal adenopathy and intestinal nodes. Has had pain like this. Has been seen in ER for similar episodes and improves with IV meds.) Recently seen: Clinic (biopsy attempted at [facility] without success. Saw Dr. Theodore and adelatin referral to [facility] for attempt at biopsy. Has appt with Oncology at [facility] this 05/28/21. SO is a work in progress.) Review of Systems Constitutional: denies: Fever, Chills Nose: denies: Rhinorrhea / runny nose, Congestion Throat: denies: Sore throat Cardiac: denies: Chest pain / pressure Respiratory: denies: Dyspnea, Cough GI: reports: Abdominal Pain, Nausea, Constipation. denies: Abdominal Swelling, Vomiting, Diarrhea, Bloody / black stool : denies: Dysuria, Frequency Skin: denies: Rash, Lesions Neurologic: denies: Near syncope, Syncope, Altered mental status, Headache PD PAST MEDICAL HISTORY - Past Medical History Cardiovascular: None Respiratory: None Neuro: None Endocrine/Autoimmune: None GI: GERD : Other HEENT: None Psych: None Musculoskeletal: Chronic back pain Derm: Other - Past Surgical History Past Surgical History: No Ortho: Other - Present Medications Home Medications: Ambulatory Orders Medication Instructions Recorded Confirmed Potassium Chloride [Klor-Con 10] 10 meq PO QDAC #10 tab 05/04/21 05/13/21 Sennosides/Docusate Sodium [Senna 1 each PO DAILY #30 tablet 05/06/21 05/13/21 Plus Tablet] oxyCODONE [Roxicodone] 5 mg PO Q4-6H PRN #12 tablet 05/06/21 05/13/21 Dicyclomine [Bentyl] 10 mg PO TID #21 cap 05/07/21 05/13/21 Famotidine [Pepcid] 20 mg PO DAILY #20 tablet 05/07/21 05/13/21 Gabapentin [Neurontin] 300 mg PO TID #60 cap 05/07/21 05/13/21 Meloxicam [Mobic] 7.5 mg PO BID PRN #20 tablet 05/07/21 05/13/21 dexAMETHasone [Decadron] 4 mg PO DAILY #5 tablet 05/07/21 05/13/21 methocarbamoL [Robaxin] 500 mg PO Q6H PRN #20 tablet 05/07/21 05/13/21 - Allergies Allergies/Adverse Reactions: Allergies Allergy/AdvReac Type Severity Reaction Status Date / Time Penicillins Allergy Intermediate Unknown Verified 05/24/21 09:56 - Social History Does the pt smoke?: No Smoking Status: Never smoker Does the pt drink ETOH?: No Does the pt have substance abuse?: No - Immunizations Immunizations are current?: Yes - POLST Patient has POLST: No PD ED PE NORMAL - Vitals Vital signs reviewed: Yes - General General: Alert and oriented X 3, Well developed/nourished, Other (appears in marked discomfort, with some writhing in pain, holding lower abd. ) - HEENT HEENT: Pharynx benign - Neck Neck: Supple, no meningeal sign, No adenopathy - Cardiac Cardiac: RRR, No murmur - Respiratory Respiratory: Clear bilaterally - Abdomen Abdomen: Soft, Non distended, No organomegaly, Other (tender lower abd left more than right, but both sides. Some rebound but no percussion tenderness.). No: Normal bowel sounds (diminished) Results - Vitals Vitals: Vital Signs - 24 hr 05/24/21 05/24/21 09:56 12:07 Temperature 36 C L 36.7 C Heart Rate 70 73 Respiratory 24 16 Rate Blood Pressure 142/89 H 134/94 H O2 Saturation 100 96 Oxygen O2 Source Room air - Labs Labs: Laboratory Tests 05/24/21 05/24/21 10:30 10:30 WBC 9.3 RBC 4.71 Hgb 13.6 L Hct 40.9 L MCV 86.8 MCH 28.9 MCHC 33.3 RDW 13.8 Plt Count 210 MPV 9.1 Neut # (Auto) 5.8 Lymph # (Auto) 1.2 L [place] # (Auto) 1.2 H Eos # (Auto) 1.0 H Baso # (Auto) 0.1 Absolute Nucleated RBC 0.00 Nucleated RBC % 0.0 Sodium 137 Potassium 3.9 Chloride 102 Carbon Dioxide 23 Anion Gap 12.0 BUN 10 Creatinine 1.0 Estimated GFR (MDRD) 76 L Glucose 112 H Calcium 9.1 Total Bilirubin 1.1 H AST 28 ALT 28 Alkaline Phosphatase 95 Total Protein 7.1 Albumin 4.1 Globulin 3.0 Albumin/Globulin Ratio 1.4 Lipase 20 L PD MEDICAL DECISION MAKING - ED course Complexity details: reviewed old records, re-evaluated patient (improved adequately with IV meds here. ), considered differential (I have seen him for similar episodes. Has had prolonged time getting biopsies/follow up on his abd tumor. Takes PO pain meds regularly with recent Rx refill. Episodes of worse pain uncontrolled with home meds.), d/w patient Departure - Departure Disposition: Home, Self Care Clinical Impression: Recurrent abdominal pain Condition: Stable Record reviewed to determine appropriate education?: Yes Follow-Up: Armaan Brooks MD [Primary Care Provider] - Toby Theodore MD [Provider Admit Priv/Credential] - Comments: Continue your current medications. You could add a Dulcolax suppository periodically if needed for constipation. You can increase your MiraLAX powder doses to 3 times daily for the next few days for more regular bowel movements. Follow-up with your primary care and also continuing forward with the evaluation of the abdominal process with the referral to [facility] and also the upcoming oncology visit on the . Return if needed. Discharge Date/Time: 05/24/21 12:08
[2021-05-24] MEDS ORDERED: HYDROmorphone 1 MG/ML CARPUJECT IVP STA ×2 (10:22→10:51)
[2021-05-24] MEDS ORDERED: KETOROLAC 15 MG/ML VIAL IVP STA (10:22)
[2021-05-24] MEDS ORDERED: DROPERIDOL 5 MG/2 ML VIAL IVP STA (10:22)
[2021-05-24 10:40] LABS: BASOPHILS # (AUTO) 0.1 10^3/uL (0.0-0.1); BASOPHILS % (AUTO) 0.8 %; EOSINOPHILS % (AUTO) 10.5 %; HCT - HEMATOCRIT 40.9 % (42.0-52.0); HGB - HEMOGLOBIN 13.6 g/dL (14.0-18.0); LYMPHOCYTES # (AUTO) 1.2 10^3/uL (1.5-3.5); LYMPHOCYTES % (AUTO) 13.2 %; MEAN CORPUSCULAR HEMOGLOBIN 28.9 pg (27.0-31.0); MEAN CORPUSCULAR HGB CONC 33.3 g/dL (32.0-36.0); MEAN CORPUSCULAR VOLUME 86.8 fL (80.0-94.0); MEAN PLATELET VOLUME 9.1 fL (7.4-11.4); MONOCYTES # (AUTO) 1.2 10^3/uL (0.0-1.0); MONOCYTES % (AUTO) 12.6 %; NEUTROPHILS # (AUTO) 5.8 10^3/uL (1.5-6.6); NEUTROPHILS % (AUTO) 62.5 %; PLT - PLATELET COUNT 210 10^3/uL (130-450); RED BLOOD COUNT 4.71 10^6/uL (4.70-6.10); RED CELL DISTRIBUTION WIDTH 13.8 % (12.0-15.0); WHITE BLOOD COUNT 9.3 x10^3/uL (4.8-10.8)
[2021-05-24 10:55] LABS: ALBUMIN 4.1 g/dL (3.2-5.5); ALBUMIN/GLOBULIN RATIO 1.4 (1.0-2.2); BILIRUBIN,TOTAL 1.1 mg/dL (0.2-1.0); CALCIUM 9.1 mg/dL (8.5-10.3); POTASSIUM 3.9 mmol/L (3.5-5.0); TOTAL PROTEIN 7.1 g/dL (6.7-8.2)
[2021-05-24 12:08] VITALS: BP 134/94
== END 2021-05-24 12:08 | disposition home or self-care (01) ==
LOC: ED 09:33
DX: R10.32 Left lower quadrant pain (principal); R10.31 Right lower quadrant pain; G89.29 Other chronic pain; R11.0 Nausea; K59.00 Constipation, unspecified; M54.5 Low back pain
CPT/HCPCS: 36415; 80053; 83690; 85025; 96374; 96375; 99283; 99284; J1170

== ENCOUNTER 2021-05-26 21:56 | Emergency (ER) | payer OTHER ==
--- NOTE | 2021-05-26 22:16 | ED Physician Documentation ---
PD HPI ABD PAIN - Stated complaint Stated Complaint: ABD PX, BACK PX - Chief complaint Chief Complaint: Abd Pain - History obtained from History obtained from: Patient - History of Present Illness Timing - onset: Today Timing - duration: Hours Timing - details: Abrupt onset, Still present Quality: Cramping, Aching, Pain Location: Periumbilical, RLQ Radiation: Right flank Worsened by: Moving. No: Breathing Associated symptoms: No: Fever, Nausea, Vomiting, Diarrhea Recently seen: Clinic (has appt at [facility] tomorrow late morning for interventional DI biopsy of retroperitoneal mass and then Oncology appt in 2 days.), Emergency Dept Review of Systems Constitutional: denies: Fever, Chills Nose: denies: Rhinorrhea / runny nose, Congestion Throat: denies: Sore throat Respiratory: denies: Cough GI: reports: Abdominal Pain, Nausea, Constipation (but has had BM in the past couple of days with extra doses of his Miralax.). denies: Vomiting, Diarrhea PD PAST MEDICAL HISTORY - Past Medical History Cardiovascular: None Respiratory: None Neuro: None Endocrine/Autoimmune: None GI: GERD : Other HEENT: None Psych: None Musculoskeletal: Chronic back pain Derm: Other - Past Surgical History Past Surgical History: No Ortho: Other - Present Medications Home Medications: Ambulatory Orders Medication Instructions Recorded Confirmed Potassium Chloride [Klor-Con 10] 10 meq PO QDAC #10 tab 05/04/21 05/13/21 Sennosides/Docusate Sodium [Senna 1 each PO DAILY #30 tablet 05/06/21 05/13/21 Plus Tablet] oxyCODONE [Roxicodone] 5 mg PO Q4-6H PRN #12 tablet 05/06/21 05/13/21 Dicyclomine [Bentyl] 10 mg PO TID #21 cap 05/07/21 05/13/21 Famotidine [Pepcid] 20 mg PO DAILY #20 tablet 05/07/21 05/13/21 Gabapentin [Neurontin] 300 mg PO TID #60 cap 05/07/21 05/13/21 Meloxicam [Mobic] 7.5 mg PO BID PRN #20 tablet 05/07/21 05/13/21 dexAMETHasone [Decadron] 4 mg PO DAILY #5 tablet 05/07/21 05/13/21 methocarbamoL [Robaxin] 500 mg PO Q6H PRN #20 tablet 05/07/21 05/13/21 Dicyclomine [Bentyl] 10 mg PO TID #21 cap 05/26/21 - Allergies Allergies/Adverse Reactions: Allergies Allergy/AdvReac Type Severity Reaction Status Date / Time Penicillins Allergy Intermediate Unknown Verified 05/26/21 22:11 - Living Situation Living Situation: reports: With family Living Arrangement: reports: At home - Social History Does the pt smoke?: No Smoking Status: Never smoker Does the pt drink ETOH?: No Does the pt have substance abuse?: No - Immunizations Immunizations are current?: Yes - POLST Patient has POLST: No PD ED PE NORMAL - Vitals Vital signs reviewed: Yes - General General: Alert and oriented X 3, Well developed/nourished, Other (appears significant distress due to abd pain, c/w prior episodes that I have seen. ) - Neck Neck: Supple, no meningeal sign, No adenopathy - Cardiac Cardiac: RRR, No murmur - Respiratory Respiratory: Clear bilaterally - Abdomen Abdomen: Soft, Non distended, No organomegaly. No: Normal bowel sounds (increased) - Derm Derm: Normal color, Warm and dry - Neuro Neuro: Alert and oriented X 3, No motor deficit, Normal speech Results - Vitals Vitals: Vital Signs - 24 hr 05/26/21 05/26/21 05/26/21 22:09 22:28 23:14 Temperature 35.8 C L Heart Rate 71 71 75 Respiratory 19 20 16 Rate Blood Pressure 132/97 H 143/99 H 147/85 H O2 Saturation 99 99 98 Oxygen O2 Source Room air PD MEDICAL DECISION MAKING - ED course Complexity details: reviewed old records, re-evaluated patient, considered differential, d/w patient Departure - Departure Disposition: Home, Self Care Clinical Impression: Recurrent generalized abdominal pain, Retroperitoneal lymphadenopathy Condition: Stable Follow-Up: Armaan Brooks MD [Primary Care Provider] - Prescriptions: Dicyclomine [Bentyl] 10 mg PO TID #21 cap Comments: Continue your current medications. Stay well-hydrated. Add dicyclomine antispasmodic as you had taken previously. See if that helps as well. Follow-up with [facility] for biopsy tomorrow morning as planned. Follow-up with oncology on Monday as planned. Return if needed. Discharge Date/Time: 05/26/21 23:22
[2021-05-26] MEDS ORDERED: DROPERIDOL 5 MG/2 ML VIAL IVP STA (22:17)
[2021-05-26] MEDS ORDERED: HYDROmorphone 1 MG/ML CARPUJECT IVP STA (22:17)
[2021-05-26] MEDS ORDERED: SODIUM CHLORIDE 0.9% 1,000 ML IV STA (22:18)
[2021-05-26] MEDS ORDERED: DICYCLOMINE 10 MG CAPSULE PO STA (22:44)
[2021-05-26 23:15] VITALS: BP 147/85
== END 2021-05-26 23:22 | disposition home or self-care (01) ==
LOC: ED 21:56
DX: R10.33 Periumbilical pain (principal); R59.0 Localized enlarged lymph nodes
CPT/HCPCS: 96374; 96375; 99283; 99284; A9270; J1170

== ENCOUNTER 2021-05-28 22:20 | Emergency (ER) | payer OTHER ==
--- NOTE | 2021-05-28 22:38 | ED Physician Documentation ---
PD HPI ABD PAIN - Stated complaint Stated Complaint: ABD PX - Chief complaint Chief Complaint: Abd Pain - History obtained from History obtained from: Patient - History of Present Illness Timing - onset: Enter time (19:00), Today Timing - details: Gradual onset, Waxing and waning Quality: Cramping, Pain Associated symptoms: Constipation. No: Fever, Nausea, Vomiting Recently seen: Emergency Dept - Additional information Additional information: 8th [facility] ED visit in one month for abdominal pain. Testing over this past month has included US and CT, results of which demonstrate liver lesions and retroperitoneal lymphadenopathy. He says he had been taking oxycodone for pain control but that yesterday he was seen in the outpatient setting by a surgeon and was prescribed hydromorphone which was to be taken in place of the oxycodone. Patient says he waited to make this transition until he was seen by hem/onc; he met with hem/onc earlier today and patient says the hem/onc physician agreed with taking hydromorphone instead of the oxycodone. Patient says he was due for a dose of the oxycodone this evening and instead took the hydromorphone. He presents to ED due to worsening pain and sensation of constipation with no relief after taking the hydromorphone. Review of Systems Constitutional: denies: Fever, Chills, Sweats Cardiac: reports: Reviewed and negative Respiratory: reports: Reviewed and negative GI: reports: Abdominal Pain, Nausea, Constipation. denies: Vomiting, Diarrhea, Hematemesis, Bloody / black stool : denies: Dysuria PD PAST MEDICAL HISTORY - Past Medical History Cardiovascular: None Respiratory: None Neuro: None Endocrine/Autoimmune: None GI: GERD : Frequency, Other HEENT: None Psych: None Musculoskeletal: Chronic back pain Derm: Psoriasis - Past Surgical History Past Surgical History: No Ortho: Other - Present Medications Home Medications: Ambulatory Orders Medication Instructions Recorded Confirmed Potassium Chloride [Klor-Con 10] 10 meq PO QDAC #10 tab 05/04/21 05/28/21 Sennosides/Docusate Sodium [Senna 1 each PO DAILY #30 tablet 05/06/21 05/28/21 Plus Tablet] Dicyclomine [Bentyl] 10 mg PO TID #21 cap 05/07/21 05/28/21 Famotidine [Pepcid] 20 mg PO DAILY #20 tablet 05/07/21 05/28/21 Gabapentin [Neurontin] 300 mg PO TID #60 cap 05/07/21 05/28/21 Meloxicam [Mobic] 7.5 mg PO BID PRN #20 tablet 05/07/21 05/28/21 dexAMETHasone [Decadron] 4 mg PO DAILY #5 tablet 05/07/21 05/28/21 methocarbamoL [Robaxin] 500 mg PO Q6H PRN #20 tablet 05/07/21 05/28/21 oxyCODONE [Roxicodone] 10 mg PO Q4-6H PRN 05/28/21 05/28/21 - Allergies Allergies/Adverse Reactions: Allergies Allergy/AdvReac Type Severity Reaction Status Date / Time Penicillins Allergy Intermediate Unknown Verified 05/28/21 22:27 - Social History Does the pt smoke?: No Smoking Status: Former smoker Does the pt drink ETOH?: No Does the pt have substance abuse?: No - Immunizations Immunizations are current?: Yes - POLST Patient has POLST: No PD ED PE NORMAL - Vitals Vital signs reviewed: Yes - General General: Alert and oriented X 3, Well developed/nourished, Other (appears to be in moderate painful distress) - Cardiac Cardiac: RRR, No murmur - Respiratory Respiratory: No respiratory distress, Clear bilaterally - Abdomen Abdomen: Normal bowel sounds, Soft, Non tender - Back Back: No CVA TTP Results - Vitals Vitals: Vital Signs - 24 hr 05/28/21 05/29/21 05/29/21 22:27 00:58 01:49 Temperature 36.5 C 37.1 C Heart Rate 72 90 88 Respiratory 16 16 18 Rate Blood Pressure 138/99 H 141/75 H 156/94 H O2 Saturation 100 100 100 Oxygen O2 Source Room air - Rads (name of study) acute abdomen xrays Radiology: Prelim report reviewed, See rad report PD MEDICAL DECISION MAKING - ED course Complexity details: reviewed old records, reviewed results, re-evaluated patient, considered differential, d/w patient ED course: patient presents for recurrence of ongoing abdominal pain which had been, by patient report, controlled with oxycodone although with decreasing effectiveness and thus he was switched to hydromorphone. He took first dose of hydromorphone tonight and had inadequate pain control. He says he also feels constipated. Plain film xrays do not suggest bowel obstruction and do show large stool burden. He is given 1mg IM dilaudid and 25mg IM phenergan. On reevaluation, he is sleeping comfortably, easily awakens to voice. He reports good pain relief with these medications, discharged with bottle of magnesium citrate to be taken once he is home Departure - Departure Disposition: 01 Home, Self Care Clinical Impression: Constipation Qualifiers: Constipation type: unspecified constipation type Qualified Code(s): K59.00 - Constipation, unspecified Condition: Good Instructions: ED Constipation Follow-Up: Armaan Brooks MD [Primary Care Provider] - Comments: Drink half of the bottle of magnesium citrate when you get home. if you do not get results within 2-3 hours, drink the other half of the bottle. You can also try enemas (such as Fleet's) and glycerin suppositories. Discharge Date/Time: 05/29/21 01:55
[2021-05-28] MEDS ORDERED: HYDROmorphone 1 MG/ML CARPUJECT IM STA (23:02)
[2021-05-28] MEDS ORDERED: PROMETHAZINE 25 MG/1 ML VIAL IM STA (23:03)
[2021-05-29] MEDS ORDERED: MAGNESIUM CITRATE 296 ML BOTTLE PO STA (01:29)
[2021-05-29 01:51] VITALS: BP 156/94
--- NOTE | 2021-05-29 10:24 | XRAY Report ---
PROCEDURE: Abdomen Acute INDICATIONS: abd. pain TECHNIQUE: One view chest and two views of the abdomen were acquired. COMPARISON: CT abdomen and pelvis 05/07/2021. FINDINGS: Surgical changes and devices: None. Chest: Minimal basilar curvilinear opacity at the left lung base. Heart size is normal. No pleural e ffusions. No pneumoperitoneum. Abdomen: Scattered small bowel and colonic gas. There is prominent stool the colon. No dilated loops of bowel seen. No suspicious calcifications. Visualized solid organ contours appear normal. Bones: No suspicious bony lesions. IMPRESSION: 1. Nonobstructive bowel gas pattern. Prominent stool the colon. 2. Minimal bibasilar opacity at the left lung base. Suspect atelectasis. This report is concordant with the overnight preliminary interpretation. Reviewed by: Efrain Nam MD on 05/29/2021 9:22 AM HEATHER Approved by: Efrain Nam MD on 05/29/2021 9:22 AM HEATHER Station ID: [id number]
== END 2021-05-29 01:55 | disposition home or self-care (01) ==
LOC: ED 22:20
DX: K59.00 Constipation, unspecified (principal); Z87.891 Personal history of nicotine dependence
CPT/HCPCS: 96372; 99284

== ENCOUNTER 2021-05-30 01:45 | Emergency (ER) | payer OTHER ==
[2021-05-30] MEDS ORDERED: KETOROLAC 15 MG/ML VIAL IVP STA (02:00)
[2021-05-30] MEDS ORDERED: SODIUM CHLORIDE 0.9% 1,000 ML IV STA (02:00)
[2021-05-30] MEDS ORDERED: DROPERIDOL 5 MG/2 ML VIAL IVP STA (02:00)
[2021-05-30] MEDS ORDERED: HYDROmorphone 1 MG/ML CARPUJECT IVP STA ×2 (02:00→02:52)
--- NOTE | 2021-05-30 02:59 | ED Physician Documentation ---
PD HPI ABD PAIN - Stated complaint Stated Complaint: ABD PX - Chief complaint Chief Complaint: Abd Pain - History obtained from History obtained from: Patient - History of Present Illness Timing - onset: Today Timing - duration: Hours Timing - details: Gradual onset, Still present (The patient has had ongoing lower abdomen abdomen and flank pain for over a month initially diagnosed with retroperitoneal lymph nodes and mass as well as liver lesions. Some mesenteric nodes. Concern for process such as lymphoma and was trying to get work-up with biopsy/oncology. protracted long.) Quality: Cramping, Aching, Pain Location: All over / everywhere (most in lower abd and flanks, but has these intensely painful episodes at times and seen in ER, when the pain is diffuse abd and gripping painful.) Radiation: Lower back, Right flank Improved by: No: Laying still Worsened by: Palpation. No: Moving, Breathing Associated symptoms: Nausea, Constipation, Loss of appetite. No: Fever, Vomiting, Diarrhea, Melena, Chest pain Similar symptoms before: No diagnosis Recently seen: Clinic (Oncology yesterday with follow up appt after biopsies. Is to see Prov Tee IR this coming week. Has PMD Dr Brooks, who is Rx pain meds.), Emergency Dept (for these worse pain episodes and given meds with improvement to baseline level of abd/flank pain. Has ongoing pain at mild/moderate level which has become worse consistently.) Review of Systems Constitutional: denies: Fever, Chills Nose: denies: Rhinorrhea / runny nose, Congestion Throat: denies: Sore throat Respiratory: denies: Cough GI: reports: Abdominal Pain, Nausea, Constipation. denies: Vomiting, Diarrhea : denies: Dysuria Skin: denies: Rash PD PAST MEDICAL HISTORY - Past Medical History Past Medical History: Yes Cardiovascular: None Respiratory: None Neuro: None Endocrine/Autoimmune: None GI: GERD : Frequency, Other HEENT: None Psych: None Musculoskeletal: Chronic back pain Derm: Psoriasis - Past Surgical History Past Surgical History: No Ortho: Other - Present Medications Home Medications: Ambulatory Orders Medication Instructions Recorded Confirmed Potassium Chloride [Klor-Con 10] 10 meq PO QDAC #10 tab 05/04/21 05/30/21 Sennosides/Docusate Sodium [Senna 1 each PO DAILY #30 tablet 05/06/21 05/30/21 Plus Tablet] Dicyclomine [Bentyl] 10 mg PO TID #21 cap 05/07/21 05/30/21 Famotidine [Pepcid] 20 mg PO DAILY #20 tablet 05/07/21 05/30/21 Gabapentin [Neurontin] 300 mg PO TID #60 cap 05/07/21 05/30/21 Meloxicam [Mobic] 7.5 mg PO BID PRN #20 tablet 05/07/21 05/30/21 dexAMETHasone [Decadron] 4 mg PO DAILY #5 tablet 05/07/21 05/30/21 methocarbamoL [Robaxin] 500 mg PO Q6H PRN #20 tablet 05/07/21 05/30/21 oxyCODONE [Roxicodone] 10 mg PO Q4-6H PRN 05/28/21 05/30/21 Meloxicam [Mobic] 7.5 mg PO BID 10 Days #20 tablet 05/30/21 Naloxegol Oxalate [Movantik] 25 mg PO DAILY 15 Days #15 tablet 05/30/21 bisacodyL [Dulcolax] 10 mg PO DAILY #20 tablet 05/30/21 - Allergies Allergies/Adverse Reactions: Allergies Allergy/AdvReac Type Severity Reaction Status Date / Time Penicillins Allergy Intermediate Unknown Verified 05/30/21 04:25 - Social History Does the pt smoke?: No Smoking Status: Never smoker Does the pt drink ETOH?: No Does the pt have substance abuse?: No - Immunizations Immunizations are current?: Yes - POLST Patient has POLST: No PD ED PE NORMAL - Vitals Vital signs reviewed: Yes - General General: Alert and oriented X 3, Well developed/nourished, Other (seems in significant distress with flailing legs and turning side/side in cart and trying to find comfortable position.) - HEENT HEENT: PERRL (nonicteric) - Neck Neck: Supple, no meningeal sign, No adenopathy - Cardiac Cardiac: RRR, No murmur - Respiratory Respiratory: Clear bilaterally - Abdomen Abdomen: Soft, Non distended, Other (tender diffusely, but more to lower abd. ). No: Normal bowel sounds (diminished diffusely) - Back Back: Other (right DVA tender more than left. ) - Derm Derm: Normal color, Warm and dry - Extremities Extremities: Normal ROM s pain - Neuro Neuro: Alert and oriented X 3, No motor deficit, Normal speech Results - Vitals Vitals: Vital Signs - 24 hr 05/30/21 05/30/21 05/30/21 01:55 02:15 02:45 Temperature 37.2 C 37.2 C Heart Rate 98 76 Respiratory 26 H 20 Rate Blood Pressure 158/101 H 143/113 H O2 Saturation 99 100 05/30/21 05/30/21 05/30/21 02:50 02:52 03:05 Temperature 36.5 C Heart Rate 67 81 Respiratory 16 16 Rate Blood Pressure 173/94 H 172/95 H O2 Saturation 95 88 L 95 05/30/21 05/30/21 03:38 04:15 Temperature Heart Rate 75 81 Respiratory 16 16 Rate Blood Pressure 169/101 H 145/96 H O2 Saturation 96 95 Oxygen O2 Source Nasal cannula Oxygen Flow Rate 2 PD MEDICAL DECISION MAKING - ED course Complexity details: re-evaluated patient (improved with combo of Dilaudid, Toradol, Inapsine (which helped with nausea but also with the anxiety related to the pain). ), considered differential (ongoing abd and flank pain, with episodes of severe pains/anxiety. Seen in ER several times. Constipated too. ), d/w patient ED course: He does have some tumors retroperitoneal and lymph nodes as well as some liver lesions. Work-up slowly for these tumors with consideration of lymphoma or other cancerous process. Unfortunately his work-up has been delayed because of initial inability for interventional radiology here to obtain biopsy and then delays in referrals to [facility] IR and also oncology. He just had an oncology appointment this past week. He met with surgery/radiology in [place] but they did not have the images available reportedly so he is to come back this coming week. Hopefully they will obtain a biopsy. Meanwhile his primary care had tried different pain medication which the patient states is not holding his pain. I would have him contact his primary care regarding increased pain medication. However is discomfort may also relate to constipation from the opioids as well as the intestinal nodes. We can try an intestinal antagonist and along with the bisacodyl stimulant to hopefully relieve the constipation part. He had been dosed a few times recently with some NSAIDs as well and we can repeat the meloxicam. Previously I thought he was having episodes of intestinal spasming and had prescribed dicyclomine. However in the view of constipation related, this may be counterproductive so we will have him discontinue any dicyclomine. The most effective would be the pain medicine I believe along with the NSAIDs. Unfortunately do not see a rationale for admission at this time though outpatient further work-up would be nice to be expedited. Departure - Departure Disposition: 01 Home, Self Care Clinical Impression: Recurrent generalized abdominal pain, Abdominal lymphadenopathy Constipation Qualifiers: Constipation type: drug induced constipation Qualified Code(s): K59.03 - Drug induced constipation Condition: Stable Record reviewed to determine appropriate education?: Yes Follow-Up: Armaan Brooks MD [Primary Care Provider] - Prescriptions: bisacodyL [Dulcolax] 10 mg PO DAILY #20 tablet Meloxicam [Mobic] 7.5 mg PO BID 10 Days #20 tablet Naloxegol Oxalate [Movantik] 25 mg PO DAILY 15 Days #15 tablet Comments: Continue with your current pain medications. Add Meloxicam anti-inflammatory twice daily with food to try to help with pain/inflammation. Stay well hydrated. Naloxegor daily to help with constipation. This medication antagonized the opioid effect in the intestine without changing its effect in the body/on pain. Also take a daily stimulant laxative such as bisacodyl. Follow up with your PMD and also with the Oncologist/Interventional Radiology in [place]. Hopefully they will be able to advance your workup to be able to get to more treatment options regarding the tumors.
[2021-05-30 05:39] VITALS: BP 146/90
== END 2021-05-30 05:37 | disposition home or self-care (01) ==
LOC: ED 01:45
DX: R59.0 Localized enlarged lymph nodes (principal); K59.03 Drug induced constipation
CPT/HCPCS: 36415; 96374; 96375; 96376; 99284; 99285; J1170

== ENCOUNTER 2021-06-01 01:48 | Emergency (ER) | payer OTHER ==
[2021-06-01 02:45] LABS: BILIRUBIN,URINE NEGATIVE (NEGATIVE); GLUCOSE, URINE (UA) NEGATIVE (NEGATIVE); KETONES,URINE (UA) 15 mg/dL (NEGATIVE); LEUKOCYTE ESTERASE, URINE NEGATIVE (NEGATIVE); NITRITE,URINE NEGATIVE (NEGATIVE); OCCULT BLOOD,URINE NEGATIVE (NEGATIVE); PROTEIN,URINE NEGATIVE (NEGATIVE); UROBILINOGEN,URINE 0.2 (NORMAL) E.U./dL (NORMAL)
[2021-06-01 03:29] LABS: CLARITY,URINE CLEAR (CLEAR)
--- NOTE | 2021-06-01 04:07 | ED Physician Documentation ---
PD HPI ABD PAIN - Stated complaint Stated Complaint: ABD PX - Chief complaint Chief Complaint: Abd Pain - History obtained from History obtained from: Patient - History of Present Illness Timing - onset: Enter time (00:00 (midnight)) Timing - details: Abrupt onset Pain level max: 10 Pain level now: 10 Quality: Pain Location: All over / everywhere Improved by: Other (nothing) Worsened by: Other Associated symptoms: No: Fever, Nausea, Vomiting Recently seen: Emergency Dept - Additional information Additional information: c/o recurrence of his ongoing generalized abdominal pain. This episode became severe at midnight and he says he wasnt due for another dose of his hydromorphone that he has at home and thus came to ED. Review of Systems Constitutional: reports: Reviewed and negative Cardiac: reports: Reviewed and negative GI: reports: Abdominal Pain. denies: Nausea, Vomiting, Constipation, Diarrhea : denies: Dysuria, Unable to Void Musculoskeletal: denies: Back pain PD PAST MEDICAL HISTORY - Past Medical History Past Medical History: Yes Cardiovascular: None Respiratory: None Neuro: None Endocrine/Autoimmune: None GI: GERD : Frequency, Other HEENT: None Psych: None Musculoskeletal: Chronic back pain Derm: Psoriasis - Past Surgical History Past Surgical History: Yes Ortho: Other - Present Medications Home Medications: Ambulatory Orders Medication Instructions Recorded Confirmed Potassium Chloride [Klor-Con 10] 10 meq PO QDAC #10 tab 05/04/21 05/30/21 Sennosides/Docusate Sodium [Senna 1 each PO DAILY #30 tablet 05/06/21 05/30/21 Plus Tablet] Dicyclomine [Bentyl] 10 mg PO TID #21 cap 05/07/21 05/30/21 Famotidine [Pepcid] 20 mg PO DAILY #20 tablet 05/07/21 05/30/21 Gabapentin [Neurontin] 300 mg PO TID #60 cap 05/07/21 05/30/21 Meloxicam [Mobic] 7.5 mg PO BID PRN #20 tablet 05/07/21 05/30/21 dexAMETHasone [Decadron] 4 mg PO DAILY #5 tablet 05/07/21 05/30/21 methocarbamoL [Robaxin] 500 mg PO Q6H PRN #20 tablet 05/07/21 05/30/21 oxyCODONE [Roxicodone] 10 mg PO Q4-6H PRN 05/28/21 05/30/21 Meloxicam [Mobic] 7.5 mg PO BID 10 Days #20 tablet 05/30/21 Naloxegol Oxalate [Movantik] 25 mg PO DAILY 15 Days #15 tablet 05/30/21 bisacodyL [Dulcolax] 10 mg PO DAILY #20 tablet 05/30/21 - Allergies Allergies/Adverse Reactions: Allergies Allergy/AdvReac Type Severity Reaction Status Date / Time Penicillins Allergy Intermediate Unknown Verified 06/01/21 02:03 - Social History Does the pt smoke?: No Smoking Status: Never smoker Does the pt drink ETOH?: No Does the pt have substance abuse?: No - Immunizations Immunizations are current?: Yes - POLST Patient has POLST: No PD ED PE NORMAL - Vitals Vital signs reviewed: Yes - General General: Alert and oriented X 3, Well developed/nourished, Other (lying on left side on stretcher, frequently moaning loudly) - HEENT HEENT: Moist mucous membranes - Cardiac Cardiac: RRR, No murmur - Respiratory Respiratory: No respiratory distress, Clear bilaterally - Abdomen Abdomen: Normal bowel sounds, Soft, Non tender, Non distended Results - Vitals Vitals: Oxygen O2 Source Room air - EKG (time done) No standard instances Rate: Rate (enter#) (71) Rhythm: NSR [place]: Normal Intervals: Normal [place] QRS: Normal Ischemia: Normal ST segments Other comments: Other comments (artifact in multiple leads that does not entire ly preclude intepretation) Compare to prior EKG: Unchanged from prior EKG (artifact present but otherwise no significant changes compared to 05/04/21) - Labs Labs: Laboratory Tests 06/01/21 02:41 Urine Color YELLOW Urine Clarity CLEAR Urine pH 6.0 Ur Specific [place] 1.015 Urine Protein NEGATIVE Urine Glucose (UA) NEGATIVE Urine Ketones 15 H Urine Occult Blood NEGATIVE Urine Nitrite NEGATIVE Urine Bilirubin NEGATIVE Urine Urobilinogen 0.2 (NORMAL) Ur Leukocyte Esterase NEGATIVE Ur Microscopic Review NOT INDICATED Urine Culture Comments NOT INDICATED PD MEDICAL DECISION MAKING - ED course Complexity details: reviewed old records, re-evaluated patient, considered differential, d/w patient ED course: on reevaluation after 1mg IV dilaudid and 2.5mg IV droperidol, patient is resting comfortably and reports adequate symptom relief. He says he does not have oncology appointment until June 18, and that another follow up appointment for possible reattempt at biopsy of his liver lesions was postponed due to a problem with access to previous images. I encouraged him to recontact his prescribing practitioner regarding his frequent ED visits ([facility] ED visits last month and already has 5 visits in first 2 weeks of this month); hopefully can discuss his current pain medication regimen, as well as consider further testing or expediting planned testing. Departure - Departure Disposition: 01 Home, Self Care Clinical Impression: Recurrent abdominal pain Condition: Good Instructions: Abdominal Pain Follow-Up: Armaan Brooks MD [Primary Care Provider] - Discharge Date/Time: 06/01/21 06:00
[2021-06-01] MEDS ORDERED: HYDROmorphone 1 MG/ML CARPUJECT IM STA (04:09)
[2021-06-01] MEDS ORDERED: DROPERIDOL 5 MG/2 ML VIAL IM STA (04:09)
[2021-06-01] MEDS ORDERED: SODIUM CHLORIDE 0.9% 1,000 ML IV STA (04:15)
[2021-06-01] MEDS ORDERED: HYDROmorphone 1 MG/ML CARPUJECT IVP STA (04:15)
[2021-06-01] MEDS ORDERED: DROPERIDOL 5 MG/2 ML VIAL IVP STA (04:15)
[2021-06-01 05:34] VITALS: BP 155/89
== END 2021-06-01 06:00 | disposition home or self-care (01) ==
LOC: ED 01:48
DX: R10.84 Generalized abdominal pain (principal)
CPT/HCPCS: 36415; 81003; 93005; 96361; 96374; 96375; 99284; J1170; 81001; 87086

== ENCOUNTER 2021-06-11 10:30 | Outpatient (CLI) | payer OTHER ==
[2021-06-11 10:50] LABS: BASOPHILS % (AUTO) 0.3 %; EOSINOPHILS # (AUTO) 0.1 10^3/uL (0.0-0.7); EOSINOPHILS % (AUTO) 0.8 %; HCT - HEMATOCRIT 42.5 % (42.0-52.0); HGB - HEMOGLOBIN 14.1 g/dL (14.0-18.0); LYMPHOCYTES # (AUTO) 1.1 10^3/uL (1.5-3.5); LYMPHOCYTES % (AUTO) 13.7 %; MEAN CORPUSCULAR HEMOGLOBIN 28.1 pg (27.0-31.0); MEAN CORPUSCULAR HGB CONC 33.2 g/dL (32.0-36.0); MEAN CORPUSCULAR VOLUME 84.7 fL (80.0-94.0); MEAN PLATELET VOLUME 9.5 fL (7.4-11.4); MONOCYTES # (AUTO) 0.5 10^3/uL (0.0-1.0); MONOCYTES % (AUTO) 6.3 %; NEUTROPHILS % (AUTO) 77.5 %; PLT - PLATELET COUNT 271 10^3/uL (130-450); RED BLOOD COUNT 5.02 10^6/uL (4.70-6.10); RED CELL DISTRIBUTION WIDTH 14.6 % (12.0-15.0); WHITE BLOOD COUNT 7.7 x10^3/uL (4.8-10.8)
[2021-06-11 10:57] LABS: INR 1.1 (0.8-1.2); PT - PROTHROMBIN TIME 12.2 secs (9.9-12.6)
[2021-06-11 11:04] LABS: PARTIAL THROMBOPLASTIN TIME 44.5 secs (24.9-33.3)
== END 2021-06-11 10:31 | disposition home or self-care (01) ==
LOC: LAB 10:30
PROVIDERS: ATTEND Family Medicine
DX: R16.0 Hepatomegaly, not elsewhere classified (principal); R10.9 Unspecified abdominal pain; R59.0 Localized enlarged lymph nodes
CPT/HCPCS: 36415; 85025; 85610; 85730

== ENCOUNTER 2021-06-15 09:00 | Outpatient (CLI) | payer OTHER ==
--- NOTE | 2021-06-15 12:05 | CONSULTATION NOTE ---
Palliative Care Consultation - Referral Referring Provider: Dr. Brooke Cardoso Time of Visit: 3360-0501 Referral setting: Home Referral Reason: Pain of neoplastic origin/Symptom management - Information Sources Records reviewed: Previous records reviewed History/Review of Systems obtained from: Patient, Family (, Stacey and brother in law, Sonny) Exam limitations: Clinical condition (Acute pain) - History of Present Illness Brief History of Present Illness: This is a 60-year-old male who presents for initial palliative care consultation due to metastatic cancer with retroperitoneal lymphadenopathy and liver metastases , Pain management, constipation within his home with his , Daniela and brllnai-vs-yqu, Sonny present. The patient unfortunately had approximately 1.5 months of abdominal pain before presenting to the emergency department on 04/27/[address] of the abdomen pelvis performed that demonstrated enlarged retroperitoneal lymph nodes with infiltration of surrounding fat as well as a nonspecific small hypoattenuating liver lesions and a focal thickening of the gallbladder fundus. The patient then had an attempted CT-guided liver biopsy on 05/14/2021 which was unsuccessful. His course has then been complicated as he developed shortness of breath and presented to [facility] emergency department on 06/06 where he was diagnosed with Covid19+ as well as bilateral pulmonary emboli. He was discharged on 06/09 on Lovenox therapy. He reports during his hospital stay he had a PET scan that was inconclusive for the primary site of his metastases. He has a pending liver biopsy again scheduled on 06/23 in [place] That was delayed due to the patient's Covid19 status. In the interim, the patient has been having escalating pain. He has initially been trialed on hydrocodone/negative medicine and then transition to oxycodone and meloxicam. During his hospitalization at [facility] on 06/06 he was transitioned to MS Contin 30 mg twice daily in addition to hydromorphone 4 mg every 4 hours as needed for pain. The patient reports initially upon discharge this was "marginally assistive" until it has not been. He is having generalized abdominal pain. He reports to decreased bowel movements. He reports in the last month he has not had "a decent bowel movement". In the last several days he has had a decrease in his oral intake. Yesterday due to escalating pain oncology was contacted and was advised to increase his MS Contin from 30 mg twice daily to 3 times daily. Yesterday evening he attempted to increase his dose and quickly had an episode of emesis after swallowing the pills per his and his family's report. He reports to taking hydromorphone approximately 12 Pills per day and it is "not quite taking the edge off. Family reports that he is either asleep or awaken pain. The patient and his family are beginning to experience Inc. burnout. He is having reports of significant weight loss. In February 2021 he weighed 270 pounds and is now down to approximately 200 pounds.. The patient is seen having returned from lab appointment due to his Lovenox inje ction. He is uncomfortable and unable to sit still due to the pain. He is able to supplement some history but much of the history is taken from the patient's spouse and qatepgs-el-fwl. Medical/Surgical History - Past Medical History Cardiovascular: reports: None Respiratory: reports: None Neuro: None Endocrine/Autoimmune: reports: None GI: reports: GERD : reports: Frequency, Other HEENT: reports: None Psych: reports: None Musculoskeletal: reports: Chronic back pain Derm: reports: Psoriasis MRSA Hx?: No Other Past Medical History: +COVID-19 05/2021; +Bilateral PE 05/2021 - Past Surgical History Ortho: reports: Other - Substance History Use: Uses substance without health or social issues: NONE (History of alcohol abuse quit 1990) Social History - Living Situation Living arrangement: At home Living Situation: With family (spouse, Stacey and 3 children) Support System: Patient grew up in [place]. He purchases home on [address] [place] [address]. 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 Previously . to his present , Vera for 20 years. They have 3 children together. Yaiyhun-mx-opc, Sonny is presently's supporting the family and providing assistance. The patient's spouse speaks some Albanian. The [id number]-ap-wjd plans to be present until his own appointment on 07/02 to provide support. Family History - Family History Family History: Mother: , Father: Family History Comment/Other: Mother with history of multiple cancers per patient's report. Medications/Allergies - Medications Home Medications: Ambulatory Orders Medication Instructions Recorded Confirmed HYDROmorphone [Dilaudid] 6 mg PO Q4H PRN 06/15/21 Morphine Sulfate ER [Ms Contin] 45 mg PO TID 06/15/21 Naloxone HCl [Narcan] MDD As directed 06/15/21 Ondansetron Odt [Zofran Odt] 4 mg PO Q6H PRN 06/15/21 06/15/21 Prochlorperazine Maleate 10 mg PO Q6H PRN 06/15/21 06/15/21 [Compazine] Senna [Senokot] 8.6 mg PO BID 06/15/21 06/15/21 polyethylene glycoL 3350 [Miralax] 17 g PO BID 06/15/21 06/15/21 - Allergies Allergies/Adverse Reactions: Allergies Allergy/AdvReac Type Severity Reaction Status Date / Time Penicillins Allergy Intermediate Unknown Verified 06/01/21 02:03 Review of Systems - Constitutional Constitutional: reports: Fatigue, Poor appetite, Weight loss (70 pound loss since February 2021). denies: Fever - Eyes Eyes: reports: Corrective lenses - Ears, Nose & Throat Ears, Nose & Throat: reports: Nasal congestion (uses netipot) - Cardiovascular Cardiovascular: denies: Edema, Exertional dyspnea - Respiratory Respiratory: denies: Cough - Gastrointestinal Gastrointestinal: reports: Abdominal pain, Constipation, Nausea, Vomiting (yesterday evening), Poor appetite. denies: Diarrhea, Rectal bleeding, Bloody stools - Musculoskeletal Musculoskeletal: denies: Transfer issues - Integumentary Integumentary: denies: Rash - Neurological Neurological: reports: Other (Dizziness due to decreased oral intake in last few days). denies: General weakness - Endocrine Endocrine: denies: Diabetes type 2 - Hematologic/Lymphatic Hematologic/Lymph: denies: Recurrent infections - All Other Systems All Other Systems: reports: Reviewed and negative Physical Exam - Vital Signs Temperature: 36.6 C Pulse Rate: 74 O2 Saturation: 98 (on RA) - Physical Exam General Appearance: positive: Alert, Moderate distress (due to underlying pain that would wax and wane) Eyes Bilateral: positive: Normal inspection, Other (+corrective lenses) ENT: positive: No signs of dehydration Neck: positive: Trachea midline Cardiovascular: positive: Regular rate & rhythm, No murmur Respiratory: positive: No respiratory distress, Breath sounds nml. negative: Wheezes, Rales Abdomen: positive: Nml bowel sounds, Tenderness, Guarding Skin: positive: Other (Visible skin intact) Extremities: positive: No pedal edema Neurologic/Psychiatric: positive: Oriented x3, Mood/affect nml Palliative Care - POLST Patient has POLST: No Pain: Pain worsening (abdominal pain that is generalized that is esclating due to underlying oncology diangosis and constipation likely compounding on MS contin 30mg TID and hydromorphone 4mg every 4 hours as needed for pain) Drowsiness/Sedation: Mild (1-3) Nausea: Moderate (4-6) Anorexia: Severe (7-10) Dyspnea: None Constipation: Yes, Unmanaged Performance Status: Patient is ambulatory. No use of assistive devices. No history of frequent falls. Continent of bowel and bladder. Reduction in IADLs due to escalating pain. - Palliative Care Discussion: The patient has unfortunately had some setbacks in can from a Blanco diagnosis regarding is retroperitoneal lymphadenopathy and liver lesions that is concerning for metastatic disease. Covid19 has been contributing to these setbacks. In the interim, he has been experiencing high symptom burden of weight loss, anorexia, and escalating pain. The patient's primary goal is to have his pain under better control in order to function. Therefore appropriate to increase his MS Contin from 30 mg 3 times daily to 45 mg 3 times daily which is 50% of each dose that is scheduled. Lengthy discussion had with the patient, hfovggt-rx-vsz, and spouse regarding the importance of long-acting opioid therapy to provide a basal release to control the patient's pain over 24 hours and the utilization of hydromorphone for breakthrough pain before it begins to escalate. We will also increase hydromorphone from 4 mg to 6 mg every 4 hours as needed. Given the patient's underlying nausea we will also introduce oral disintegrating tablets of Zofran and if not effective in 2 hours may utilize Compazine 10 mg for further control of the patient's symptoms. The patient's spouse speaks minimal Albanian and requires support. Thankfully, the patient's cailgqp-yn-yza has been present to provide additional support to himself and his family. The vdtxtal-eu-nut expresses that the patient himself has always been in an alpha personality in managing things and therefore will need to build rapport and trust moving forward in relation to treatment plan. Also who was shared that the children within the home are demonstrating concern seeing their father in such acute pain and introduced the role of palliative care talcer for utilization in the future if amenable. Results - Lab Results Lab results reviewed: Yes Lab and Imaging Results: 05/28/2021 CA 19-9 63,[id number] Impression and Recommendations - Palliative Care Impression: This is a 60-year-old man with RP LAD and liver lesions concerning for metastat ic cancer, with significant symptom burden including pain of neoplastic origin and constipation. Patient would benefit from dose titration of his MS Contin as he is having escalating pain. He also needs a routine bowel regimen as is present regimen is not effective for dual goal daily, soft bowel movement. Pain presents as poorly controlled and will escalate regimen as well as underlying nausea and will add additional support. Palliative care will continue to build rapport, explore goals of care, and meet on a regular basis for quality of life issues and high symptom burden. Recommendations/Counseling Done: 1. Pain of neoplastic origin. Patient titrated to MS Contin 30mg TID on 06/14/2021 with continued pain escalation Presenting with significant symptom burden. Presently on MS Contin 30 mg 3 times daily and given pain escalation will increase by 50% with each dose to 45 mg 3 times daily. Rx sent for 30 mg grams tablets and 50 mg tablets to [facility]. Given the need for better pain control will also increase his hydromorphone from 4 mg to 6 mg every 4 hours as needed for breakthrough pain. Instructed patient, spouse, and xczmenz-qb-syy that the role of the MS Contin is to stabilize the patient's pain and to utilize the hydrocodone for breakthrough. Moving forward palliative care will manage pain regimen and therefore with opioid therapy to have 1 provider and 1 pharmacy and patient elects to utilize [facility] in [place]. Discussed the need to continue to keep track of hydromorphone usage to adjust long acting opioid therapy and see where the patient's land in the future. Consulted oncology and at the present time contraindication to adding dexamethasone for additional support. Patient has Narcan in the home and reviewed usage. Discussed goal is to improve comfort with balancing function and sedation. 2. Constipation. Patient symptoms are not presently controlled. Discussed that utilization of opioid therapy can increase the risk of constipation and reviewed titration measures. Advised despite decreased oral intake the goal is to have a soft, bowel movement daily if not every other day. Initiate MiraLAX 1 cap in the morning and 1 cap in the evening dissolved in 4 to 6 ounces of liquid. Discussed starting today to take 2 tablets of senna 8.6 mg every 4 hours until a bowel movement is achieved and then once a bowel movement is achieved to utilize senna 8.6 mg 1 tablet in the morning and 1 tablet in the evening. Reviewed the importance of bowel regimen. 3.Nausea and vomiting due to underlying malignancy. Discussed use of Zofran 4 mg ODT to take 1 tablet every 6 hours as needed for nausea. If after 2 hours he has no resolution of nausea then may take prochlorperazine 10mg every 6 hours for nausea as these work on different receptors. Also advised that underlying constipation may also may be a contributing factor to his nausea and vomiting. Encourage small, frequent bland foods and meals. Also strongly encourage maintaining oral hydration with sipping on broth, Gatorade, lukewarm water, frequently throughout the day. 4. Caregiver burden. Due to patient's escalating pain this is resulting in inc reased caregiver burden for the patient's spouse within the home and at the present time klggecb-de-myz is providing additional support. Supportive listening provided. 5. Covid19. Diagnosed 06/06/2021. No respiratory symptoms reported. 6. Pulmonary embolism. Continue Lovenox injections as prescribed by oncology. Underlying malignancy contributory. 7. Metastatic cancer with retroperitoneal lymphadenopathy and liver metastases. Unfortunately, the patient's contracture of Covid19 has put further delay in his work-up. He is scheduled for a repeat liver biopsy on 06/23 that will hopefu lly be definitive regarding oncologic diagnosis and therefore determination of treatment plan. Patient to continue to follow with oncology. Total time spent 80 minutes with greater than 50% of this spent in counseling and coordination of care with patient, spouse and brother in law; review of palliative care; review of records; examination of patient; review of pain and symptom management and anticipatory guidance. Consulted Dr. Cardoso by phone. Disclaimer: The chart note was formulated using voice recognition technology and unfortunately sound alike errors may occur.
== END 2021-06-15 09:01 | disposition home or self-care (01) ==
LOC: PC 09:00
PROVIDERS: ATTEND Nurse Practitioner Family
DX: Z51.5 Encounter for palliative care (principal); G89.3 Neoplasm related pain (acute) (chronic); R10.84 Generalized abdominal pain; C80.1 Malignant (primary) neoplasm, unspecified; C78.7 Secondary malignant neoplasm of liver and intrahepatic bile duct; R59.0 Localized enlarged lymph nodes; K59.00 Constipation, unspecified; R11.2 Nausea with vomiting, unspecified; U07.1 COVID-19; I26.99 Other pulmonary embolism without acute cor pulmonale; Z79.891 Long term (current) use of opiate analgesic
CPT/HCPCS: 99345

== ENCOUNTER 2021-06-15 16:19 | Outpatient (CLI) | payer OTHER ==
[2021-06-15 16:25] LABS: BASOPHILS % (AUTO) 0.2 %; EOSINOPHILS # (AUTO) 0.1 10^3/uL (0.0-0.7); EOSINOPHILS % (AUTO) 0.9 %; HCT - HEMATOCRIT 41.9 % (42.0-52.0); HGB - HEMOGLOBIN 13.9 g/dL (14.0-18.0); LYMPHOCYTES # (AUTO) 1.3 10^3/uL (1.5-3.5); LYMPHOCYTES % (AUTO) 10.4 %; MEAN CORPUSCULAR HEMOGLOBIN 28.3 pg (27.0-31.0); MEAN CORPUSCULAR HGB CONC 33.2 g/dL (32.0-36.0); MEAN CORPUSCULAR VOLUME 85.2 fL (80.0-94.0); MEAN PLATELET VOLUME 9.2 fL (7.4-11.4); MONOCYTES % (AUTO) 7.8 %; NEUTROPHILS # (AUTO) 9.5 10^3/uL (1.5-6.6); NEUTROPHILS % (AUTO) 78.6 %; PLT - PLATELET COUNT 540 10^3/uL (130-450); RED BLOOD COUNT 4.92 10^6/uL (4.70-6.10); RED CELL DISTRIBUTION WIDTH 15.3 % (12.0-15.0); WHITE BLOOD COUNT 12.1 x10^3/uL (4.8-10.8)
[2021-06-15 16:42] LABS: CREATININE 0.9 mg/dL (0.6-1.2)
== END 2021-06-15 16:20 | disposition home or self-care (01) ==
LOC: LAB 16:19
PROVIDERS: ATTEND Internal Medicine
DX: I74.9 Embolism and thrombosis of unspecified artery (principal)
CPT/HCPCS: 36415; 82565; 85025

== ENCOUNTER 2021-06-17 11:10 | Outpatient (CLI) | payer OTHER ==
--- NOTE | 2021-06-17 13:24 | CONSULTATION NOTE ---
Palliative Care Follow Up - Referral Referring Provider: Dr. Brooke Cardoso Time of Visit: [id number] Referral setting: Home Referral Reason: Pain of neoplastic origin/Constipation/Abdominal Pain - Information Sources Records reviewed: Previous records reviewed History/Review of Systems obtained from: Patient, Family (spouse, Stacey and brother in law Sonny) Exam limitations: Clinical condition (abdominal pain) - History of Present Illness Update Brief HPI Update: This is a 60-year-old male who presents in follow-up due to metastatic cancer with retroperitoneal lymphadenopathy and liver metastases, pain of neoplastic origin constipation abdominal pain within his home with his , Vera and hxnfwyu-ht-jra, Sonny present. Provider with eye protection and N95 mask. Earlier this week, the patient's MS Contin was adjusted to 45 mg 3 times daily and his hydromorphone increased from 4 mg to 6 mg every 4 hours as needed for breakthrough pain. Last evening, the patient reports that he was able to get rest. The patient's kvmotbr-rp-eme reports that it was the first time in some time that the family got "good sleep." The patient continues to be utilizing his hydromorphone regularly. He has been consuming a little bit more since last evaluation including spaghetti noodles last evening with Indonesian spices that sat well with him. He continues to report that he has had not not had a bowel movement in approximately 5 days. He continues to report abdominal pain that radiates to his scrotum. Since yesterday he has initiated senna 8.6 mg tablets taking 2 tablets every 4 hours for a total of 8 tablets with out a bowel movement. Upon discharge from [facility] when he was initiated on MS Contin 30 mg twice daily he was advised to use Dulcolax as needed. He was unfortunately, not on a formal bowel regimen likely leading to his present circumstance of constipation. The patient is initially seen in the dining room leaning over the kitchen table demonstrating some mild distress. He was just administered 6 mg of hydromorphone before this [facility]'s arrival. Past Medical History: Patient has a past medical history of chronic back pain, psoriasis, Covid19 05/2021, bilateral PE in 05/2021 on Lovenox therapy, history of alcohol abuse quit in 1990, retroperitoneal lymphadenopathy and liver metastases 04/2021. Social History - Living Situation Living arrangement: At home Living Situation: With family (spouse, Stacey and 3 children) Support System: Patient grew up in [place]. He purchases home on [address] [place] [address]. 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 Previously . to his present , Vera for 20 years. They have 3 children together. Rqxgiuv-gx-dwu, Sonny is presently supporting the family and providing assistance. Medications/Allergies - Medications Home Medications: Ambulatory Orders Medication Instructions Recorded Confirmed HYDROmorphone [Dilaudid] 6 mg PO Q4H PRN 06/15/21 06/17/21 Morphine Sulfate ER [Ms Contin] 45 mg PO TID 06/15/21 06/17/21 Naloxone HCl [Narcan] MDD As directed 06/15/21 Ondansetron Odt [Zofran Odt] 4 mg PO Q6H PRN 06/15/21 06/17/21 Prochlorperazine Maleate 10 mg PO Q6H PRN 06/15/21 06/17/21 [Compazine] Senna [Senokot] 2 tab PO TID 06/15/21 06/17/21 polyethylene glycoL 3350 [Miralax] 17 g PO BID 06/15/21 06/17/21 Acetaminophen [Acetaminophen Extra 500 mg PO Q8H PRN 06/17/21 06/17/21 Strength] Ground Flaxseed 1 tbs PO DAILY MDD Dissolved in 06/17/21 water/juice Lovenox 100 mg SQ BID 06/17/21 - Allergies Allergies/Adverse Reactions: Allergies Allergy/AdvReac Type Severity Reaction Status Date / Time Penicillins Allergy Intermediate Unknown Verified 06/17/21 13:31 Review of Systems - Constitutional Constitutional: reports: Fatigue, Poor appetite, Weight loss (70 pound loss since February 2021). denies: Fever - Eyes Eyes: reports: Corrective lenses - Ears, Nose & Throat Ears, Nose & Throat: reports: Nasal congestion (uses netipot) - Cardiovascular Cardiovascular: denies: Edema - Respiratory Respiratory: denies: SOB with exertion - Gastrointestinal Gastrointestinal: reports: Abdominal pain, Abdominal distention, Constipation, Poor appetite. denies: Diarrhea, Rectal bleeding, Bloody stools, Vomiting - Genitourinary Genitourinary: denies: Dysuria - Musculoskeletal Musculoskeletal: reports: Back pain - Neurological Neurological: denies: General weakness - Endocrine Endocrine: denies: Diabetes type 2 - All Other Systems All Other Systems: reports: Reviewed and negative Physical Exam - Physical Exam General Appearance: positive: Alert, Moderate distress (due to underlying abdominal pain) Eyes Bilateral: positive: Normal inspection, Other (+corrective lenses) ENT: positive: No signs of dehydration Neck: positive: Trachea midline Cardiovascular: positive: Regular rate & rhythm Respiratory: positive: No respiratory distress, Breath sounds nml. negative: Wheezes Abdomen: positive: Nml bowel sounds, Tenderness, Guarding, Distended, Other (Digital rectal exam with some stool high in rectal vault). negative: Soft (firm to palpation) Skin: positive: Other (Visible skin intact) Extremities: positive: No pedal edema Neurologic/Psychiatric: positive: Oriented x3, Mood/affect nml Palliative Care - POLST Patient has POLST: No Pain: Pain improved (Minor improvement with new regimen of 45mg MS Contin TID and hydromorphone 6mg q4h PRN.) Nausea: Mild (1-3) Anorexia: Moderate (4-6) Constipation: Unmanaged - Palliative Care Discussion: Patient presents with significant constipation and likely impaction due to opioid use and poor bowel regimen. He has not responded to oral senna Administration. Within the home administered 1 Enemeez with minimal response. Then use disimpact her x2 after verbal consent with minimal response. Finally, administered 1 Fleet enema of 133 mL again, with minimal response. The patient after above interventions felt some easing in his abdomen and it was slightly softer however, still with noted abdominal distention and his significant stool. Therefore, advised to report to the emergency department for further intervention for bowel cleansing and disimpaction with understanding verbalized. Moving forward upon return home recommendations to continue MiraLAX, senna 2 tablets 3 times daily in addition of ground flaxseed for bowel regimen. Given the patient's underlying constipation is also likely exacerbating his abdominal pain will hold off on dose adjustment of his MS Contin however, would expect to titrate upwards at next evaluation and this was relayed to both the patient and his family setting expectations. Impression and Recommendations - Palliative Care Impression: This is a 60 [id number] gentleman with retroperitoneal lymphadenopathy and liver lesions concerning for metastatic cancer with significant symptom burden including pain of neoplastic origin and constipation due to opioid use. Patient tolerated interventions to Promote defecation and relieve constipation however, not adequately effective therefore advised to report to emergency department. Pain is marginally improved however, underlying constipation is likely contributing and will hold off on adjustments of MS Contin at the present time however, would easily tolerate dose adjustment in the near future. Palliative care will continue to build rapport, explore goals of care, meet on a regular basis for quality of life issues and high symptom burden. Recommendations/Counseling Done: 1. Constipation. Symptoms are not presently controlled with sedentary lifestyle and opioid therapy contributing. Routine senna that was initiated with a total of 8 doses was not effective nor amities or Fleet enema that was administered within the home. Did attempt use of disimpact her x2 without noted benefit with risks reviewed and understanding verbalized before use. Disimpact your removed intact and no signs of blood upon removal. Given the patient was not on a routine bowel regimen and minimal response recommended evaluation at [facility] emergency department and provided verbal report to Dr. Axel Byrnes for evaluation and treatment. Advised patient upon return home from hospitalization would continue MiraLAX 1 cap in the morning and 1 cap in the evening dissolved in 4 to 6 ounces of liquid. Also recommended initiating senna 2 tablets 3 times daily. Also made recommendation of 1 tablespoon of ground flaxseed dissolved in juice or water and to let sit for 10 minutes and then drink daily for constipation. Again, reviewed with the patient and family that despite limited oral intake continues to need a daily, soft bowel movement. Again reviewed the importance of bowel regimen. Patient to present to emergency department. 2. Pain of neoplastic origin. Minimal improvement since dose titration of MS Contin to 45 mg 3 times daily on 06/15/2021. Continues to utilize hydromorphone 6 mg every 4 hours as needed for breakthrough pain. Patient spouse and [id number]-eg-dpr all report the need for MS Contin 30 mg tablets. Contacted [facility] who reports too early to fill. Advised [facility] pharmacy that the patient had a dose adjustment and to fill, pharmacist to follow-up and if any additional interventions needed to contact palliative care. Discussed with patient and family to continue to keep track of hydromorphone administration for dose adjustment of MS Contin in the future. Would expect patient to require dose adjustment of MS Contin in the near future and set expectations regarding this. However, would benefit from control of constipation symptoms before makin g adjustment as some of his underlying abdominal pain is likely being exacerbated by constipation. 3. Covid19 history. Diagnosed 06/06/2021. No respiratory symptoms reported. Total time spent 60 minutes with greater than 50% of the spent in counseling and coordination of care with the patient, spouse, and iszgdmx-xs-fxy; administration of enemas for bowel regularity; review of constipation man agement; review of pain and symptom management as well as anticipatory guidance.
== END 2021-06-17 11:11 | disposition home or self-care (01) ==
LOC: PC 11:10
PROVIDERS: ATTEND Nurse Practitioner Family
DX: Z51.5 Encounter for palliative care (principal); G89.3 Neoplasm related pain (acute) (chronic); C78.7 Secondary malignant neoplasm of liver and intrahepatic bile duct; R59.0 Localized enlarged lymph nodes; Z86.16 Personal history of COVID-19; K59.03 Drug induced constipation; T40.2X5A Adverse effect of other opioids, initial encounter
CPT/HCPCS: 99350

== ENCOUNTER 2021-06-17 12:51 | Emergency (ER) | payer OTHER ==
--- NOTE | 2021-06-17 13:06 | ED Physician Documentation ---
PD HPI ABD PAIN - Stated complaint Stated Complaint: C+/ CONSTIPATION - History obtained from History obtained from: Patient, Other (Palliative care provider) - History of Present Illness Timing - onset: How many days ago (several days of feeling constipated, trying to have BM. Is taking stool softeners and laxatives. Seen by Palliative Care provider at home today, with rectal suppos and an enemz, and extra doses Miralax. No stool output. Referred to ER for "disimpaction".) Timing - duration: Days Timing - details: Gradual onset, Still present Quality: Cramping, Aching (has had ongoing abd pain for months due to tumor and nodes. Still in process of getting biopsies. Current appt is for interventional radiology in [place] Jun 23. Has Palliative Care Brandee Langston NP, who is Rx pain meds, stool regimen.) Location: All over / everywhere (pain more lower abd and back, as has been for couple months.) Radiation: Lower back Improved by: BM (when he does have small BM, some of the abd pain is improved, but not the lower/back pain from tumor.). No: Eating Worsened by: No: Eating Associated symptoms: Constipation, Loss of appetite. No: Fever, Vomiting, Diarrhea, Hematochezia, Near syncope / syncope Similar symptoms before: No diagnosis (still in process of identifying the abd/flank mass. Biopsy planned Jun 23 finally.) Recently seen: Clinic, Emergency Dept (recently in [place] when seen for dyspnea while there to have IR consultation for biopsies. Dx with PE by CT and on anticoag now. He states he had positive COVID test as well, without much URI symptoms per se (mild cough).), Other (at home today with Palliative Care.) Review of Systems Constitutional: denies: Fever, Chills Nose: denies: Rhinorrhea / runny nose, Congestion Throat: reports: Sore throat Cardiac: denies: Chest pain / pressure Respiratory: reports: Dyspnea, Cough (for past week, and was Dx with PE in [place], also had positive COVID test.). denies: Hemoptysis, Wheezing GI: reports: Abdominal Pain, Nausea, Constipation. denies: Abdominal Swelling, Vomiting, Bloody / black stool : denies: Dysuria, Frequency PD PAST MEDICAL HISTORY - Past Medical History Cardiovascular: None Respiratory: None Neuro: None Endocrine/Autoimmune: None GI: GERD : Frequency, Other HEENT: None Psych: None Musculoskeletal: Chronic back pain Derm: Psoriasis - Past Surgical History Past Surgical History: Yes Ortho: Other - Present Medications Home Medications: Ambulatory Orders Medication Instructions Recorded Confirmed HYDROmorphone [Dilaudid] 6 mg PO Q4H PRN 06/15/21 06/17/21 Morphine Sulfate ER [Ms Contin] 45 mg PO TID 06/15/21 06/17/21 Naloxone HCl [Narcan] MDD As directed 06/15/21 Ondansetron Odt [Zofran Odt] 4 mg PO Q6H PRN 06/15/21 06/17/21 Prochlorperazine Maleate 10 mg PO Q6H PRN 06/15/21 06/17/21 [Compazine] Senna [Senokot] 2 tab PO TID 06/15/21 06/17/21 polyethylene glycoL 3350 [Miralax] 17 g PO BID 06/15/21 06/17/21 Acetaminophen [Acetaminophen Extra 500 mg PO Q8H PRN 06/17/21 06/17/21 Strength] Ground Flaxseed 1 tbs PO DAILY MDD Dissolved in 06/17/21 water/juice Lovenox 100 mg SQ BID 06/17/21 - Allergies Allergies/Adverse Reactions: Allergies Allergy/AdvReac Type Severity Reaction Status Date / Time Penicillins Allergy Intermediate Unknown Verified 06/17/21 13:31 - Social History Does the pt smoke?: No Smoking Status: Never smoker Does the pt drink ETOH?: No Does the pt have substance abuse?: No - Immunizations Immunizations are current?: Yes - POLST Patient has POLST: No PD ED PE NORMAL - Vitals Vital signs reviewed: Yes - General General: Alert and oriented X 3, Well developed/nourished - HEENT HEENT: Pharynx benign - Neck Neck: Supple, no meningeal sign, No adenopathy - Cardiac Cardiac: RRR, No murmur - Respiratory Respiratory: Clear bilaterally - Abdomen Abdomen: Soft, Non distended, Other (tender lower abd diffusely without percussion nor rebound tenderness. ). No: Normal bowel sounds (decreased) - Rectal Rectal: Other (the vault was actually fairly empty, so provider did clear out lower portion at home today. So will work on enemas and extra Miralax. ) - Derm Derm: Normal color, Warm and dry - Extremities Extremities: No tenderness to palpate, Normal ROM s pain - Neuro Neuro: Alert and oriented X 3, No motor deficit, Normal speech Results - Vitals Vitals: Vital Signs - 24 hr 06/17/21 06/17/21 06/17/21 13:26 14:20 15:00 Temperature 35.8 C L Heart Rate 69 63 66 Respiratory 20 18 16 Rate Blood Pressure 102/65 126/69 126/74 O2 Saturation 96 98 97 06/17/21 06/17/21 06/17/21 16:00 16:30 17:00 Temperature Heart Rate 91 75 76 Respiratory 16 16 16 Rate Blood Pressure 141/86 H 132/83 H 143/84 H O2 Saturation 97 95 95 Oxygen O2 Source Room air - Labs Labs: Laboratory Tests 06/17/21 06/17/21 13:37 13:37 WBC 13.0 H RBC 4.54 L Hgb 12.8 L Hct 38.6 L MCV 85.0 MCH 28.2 MCHC 33.2 RDW 15.4 H Plt Count 509 H MPV 9.0 Neut # (Auto) 10.4 H Lymph # (Auto) 1.1 L Dickey # (Auto) 1.1 H Eos # (Auto) 0.2 Baso # (Auto) 0.0 Absolute Nucleated RBC 0.00 Nucleated RBC % 0.0 Sodium 134 L Potassium 3.4 L Chloride 98 L Carbon Dioxide 25 Anion Gap 11.0 BUN 15 Creatinine 0.9 Estimated GFR (MDRD) 86 L Glucose 115 H Calcium 8.9 Total Bilirubin 1.1 H AST 65 H ALT 56 Alkaline Phosphatase 221 H Total Protein 6.7 Albumin 3.5 Globulin 3.2 Albumin/Globulin Ratio 1.1 Lipase 22 PD MEDICAL DECISION MAKING - ED course Complexity details: re-evaluated patient (while here, he would have had PO pain meds at home, so gave IM dose here since missing home doses. Gave IV fluids too and antiemetics. Having less pain and down to baseline level. Some watery stool out after 2nd enema. ), considered differential, d/w patient ED course: I had tried to prescribe oral opioid antagonist on prior ER visit for constipation, but apparently insurance would not cover it. I suggested he talk with his Palliative Care provider and see if she can write for waiver/etc for Naloxegol (good RX cost about $350 for 30 per [facility]). Departure - Departure Disposition: 01 Home, Self Care Clinical Impression: Abdominal pain Qualifiers: Abdominal location: generalized Qualified Code(s): R10.84 - Generalized abdominal pain Constipation Qualifiers: Constipation type: drug induced constipation Qualified Code(s): K59.03 - Drug induced constipation Condition: Stable Instructions: ED Constipation Follow-Up: Armaan Brooks MD [Primary Care Provider] - Brandee Langston ARNP, FNP-SHARON [Provider Admit Priv/Credential] - Comments: Continue with the stool softeners and laxative plan discussed by your palliative care provider, Brandee Langston. Tomorrow or later today and tomorrow you could use the MiraLAX dosing of 17 g in water every 1 or 2 hours until stool is moving a little softer. The several enemas should hopefully loosen things up on the lower and in the remainder would be medications orally to work on the upper part of the intestines. Talk with your palliative care provider if they were able to try prescribing short course of the opiate antagonists for the intestine. That is what I had tried prescribing before but it sounds like was not covered by your insurance. Your palliative care provider may be able to ask for a waiver or write a prescription for shorter duration to help with the constipation. Continue usual medicines otherwise and follow-up with your primary care and your palliative care provider. Discharge Date/Time: 06/17/21 17:35
[2021-06-17] MEDS ORDERED: SODIUM CHLORIDE 0.9% 1,000 ML IV STA (13:26)
[2021-06-17] MEDS ORDERED: HYDROmorphone 1 MG/ML CARPUJECT IVP STA (13:27)
[2021-06-17] MEDS ORDERED: DROPERIDOL 5 MG/2 ML VIAL IVP STA (13:27)
[2021-06-17] MEDS ORDERED: SOAP SUDS ENEMA 1 EACH RC ONE (13:27)
[2021-06-17 13:43] LABS: BASOPHILS % (AUTO) 0.2 %; EOSINOPHILS # (AUTO) 0.2 10^3/uL (0.0-0.7); EOSINOPHILS % (AUTO) 1.5 %; HCT - HEMATOCRIT 38.6 % (42.0-52.0); HGB - HEMOGLOBIN 12.8 g/dL (14.0-18.0); LYMPHOCYTES # (AUTO) 1.1 10^3/uL (1.5-3.5); LYMPHOCYTES % (AUTO) 8.1 %; MEAN CORPUSCULAR HEMOGLOBIN 28.2 pg (27.0-31.0); MEAN CORPUSCULAR HGB CONC 33.2 g/dL (32.0-36.0); MONOCYTES # (AUTO) 1.1 10^3/uL (0.0-1.0); MONOCYTES % (AUTO) 8.6 %; NEUTROPHILS # (AUTO) 10.4 10^3/uL (1.5-6.6); NEUTROPHILS % (AUTO) 79.9 %; PLT - PLATELET COUNT 509 10^3/uL (130-450); RED BLOOD COUNT 4.54 10^6/uL (4.70-6.10); RED CELL DISTRIBUTION WIDTH 15.4 % (12.0-15.0)
[2021-06-17 13:56] LABS: ALBUMIN 3.5 g/dL (3.2-5.5); ALBUMIN/GLOBULIN RATIO 1.1 (1.0-2.2); BILIRUBIN,TOTAL 1.1 mg/dL (0.2-1.0); CALCIUM 8.9 mg/dL (8.5-10.3); CREATININE 0.9 mg/dL (0.6-1.2); POTASSIUM 3.4 mmol/L (3.5-5.0); TOTAL PROTEIN 6.7 g/dL (6.7-8.2)
[2021-06-17] MEDS ORDERED: MINERAL OIL ENEMA 133 ML BOTTLE RC STA (15:22)
[2021-06-17] MEDS ORDERED: polyethylene glycoL 3350 17 GM PACKET PO STA (15:23)
[2021-06-17] MEDS ORDERED: HYDROmorphone 2 MG/ML VIAL IVP STA (15:23)
[2021-06-17 18:43] VITALS: BP 143/84
== END 2021-06-17 17:35 | disposition home or self-care (01) ==
LOC: ED 12:51
DX: R10.84 Generalized abdominal pain (principal); K59.03 Drug induced constipation; T40.2X5A Adverse effect of other opioids, initial encounter
CPT/HCPCS: 36415; 80053; 83690; 85025; 96361; 96374; 96375; 96376; 99283; 99284; A9270; J1170

== ENCOUNTER 2021-06-21 15:10 | Outpatient (CLI) | payer OTHER ==
--- NOTE | 2021-06-21 17:05 | CONSULTATION NOTE ---
Palliative Care Follow Up - Referral Referring Provider: Dr. Brooke Cardoso Time of Visit: [id number] Referral setting: Home Referral Reason: Constipation/Pain of Neoplastic origin - Information Sources Records reviewed: Previous records reviewed History/Review of Systems obtained from: Patient, Family (brother in law Sonny) Exam limitations: Clinical condition (Acute pain--decreased significantly from previous visits) - History of Present Illness Update Brief HPI Update: This is a 60-year-old male who is seen in and evaluated within his home and follow-up due to constipation, pain of neoplastic origin in the setting of metastatic cancer with retroperitoneal lymphadenopathy and liver metastases with his xazxnwu-qb-xrl, Sonny present. Patient with increasing signs and symptoms of constipation and despite interventions within the home by palliative care provider with Enemeez and Fleet enema was not able to effectively have adequate stool output with continued symptoms. He was then referred and presented to the emergency department at [facility] on 06/17 for further management of Opioid-induced constipation. He had effective results in the emergency department. Since returning home he was able to defecate Monday and at a moderate amount day prior to this [facility] visit. He reports reduction in in abdominal discomfort with bowel regularity as well as is no longer having firmness to his abdomen. He has also been able to consume a little bit more with food such as soup and half a sandwich over the last few days and increased oral liquid diet. The patient's rgqzzxo-ra-ief reports significant improvement from where the patient had been previously in regards to pain management. The patient himself also acknowledges that he has had improvement of his pain however, he is finding the time between 1 AM and 5 AM the most difficult. He feels that if he can "not get ahead of giselle pain then it is difficult to get back on track." He wishes to utilize hydromorphone on a more regimented basis. Presently on MS Contin 45 mg 3 times daily. He is taking hydromorphone 6 mg every 4 hours as needed for pain. Upon review of logging of pain medication the patient is getting hydromorphone approximately 3 times per day. Patient is seen in the living room in less distress than he had been previously. He is able to be more engaged and hold a conversation. Past Medical History: Patient has a past medical history of chronic back pain, psoriasis, Covid19 05/2021, bilateral PE in 05/2021 on Lovenox therapy, history of alcohol abuse quit in 1990, retroperitoneal lymphadenopathy and liver metastases 04/2021. Social History - Living Situation Living arrangement: At home Living Situation: With family (spouse, Stacey and 3 children) Support System: Patient grew up in [place]. He purchases home on [address] [place] [address]. 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 Previously . to his present , Vera for 20 years. They have 3 children together. [id number]-dq-[id number], Sonny is presently supporting the family and providing assistance. Today, Sonny plans on being present "as long as necessary" to provide support to the family. Medications/Allergies - Medications Home Medications: Ambulatory Orders Medication Instructions Recorded Confirmed HYDROmorphone [Dilaudid] 6 mg PO Q4H PRN 06/15/21 06/17/21 Morphine Sulfate ER [Ms Contin] 45 mg PO .5AM AND 11AM 06/15/21 06/17/21 Naloxone HCl [Narcan] MDD As directed 06/15/21 Ondansetron Odt [Zofran Odt] 4 mg PO Q6H PRN 06/15/21 06/17/21 Prochlorperazine Maleate 10 mg PO Q6H PRN 06/15/21 06/17/21 [Compazine] Senna [Senokot] 2 tab PO .5AM AND 11AM 06/15/21 06/17/21 polyethylene glycoL 3350 [Miralax] 17 g PO BID 06/15/21 06/17/21 Acetaminophen [Acetaminophen Extra 500 mg PO Q8H PRN 06/17/21 06/17/21 Strength] Ground Flaxseed 1 tbs PO DAILY MDD Dissolved in 06/17/21 water/juice Lovenox 100 mg SQ BID 06/17/21 Morphine Sulfate ER [Ms Contin] 60 mg PO .7PM 06/21/21 06/21/21 Senna [Senokot] 3 tab PO QPM 06/21/21 06/21/21 - Allergies Allergies/Adverse Reactions: Allergies Allergy/AdvReac Type Severity Reaction Status Date / Time Penicillins Allergy Intermediate Unknown Verified 06/17/21 13:31 Review of Systems - Constitutional Constitutional: reports: Fatigue, Poor appetite, Weight loss (70 pound loss since February 2021). denies: Fever - Eyes Eyes: reports: Corrective lenses - Cardiovascular Cardiovascular: denies: Chest pain, Edema - Respiratory Respiratory: reports: Cough (resolving, +COVID-19 06/06/2021) - Gastrointestinal Gastrointestinal: reports: Abdominal pain, Constipation (see HPI, finds stools not formed and easier to pass), Poor appetite. denies: Abdominal distention, Vomiting - Genitourinary Genitourinary: denies: Dysuria - Musculoskeletal Musculoskeletal: denies: Assistive devices - Neurological Neurological: reports: General weakness, Other. denies: Headache - Endocrine Endocrine: denies: Diabetes type 2 - Hematologic/Lymphatic Hematologic/Lymph: reports: Other (+bilateral PEs on Lovenox) - All Other Systems All Other Systems: reports: Reviewed and negative Physical Exam - Vital Signs Temperature: 36.4 C Pulse Rate: 71 O2 Saturation: 99 (on RA) Blood Pressure: 136/89 (left wrist) - Physical Exam General Appearance: positive: Alert, Mild distress (in tripod position for comfort due to mild pain in abdomen) Eyes Bilateral: positive: Other (+corrective lenses) ENT: positive: No signs of dehydration Neck: positive: Trachea midline Cardiovascular: positive: Regular rate & rhythm, No murmur Respiratory: positive: No respiratory distress, Breath sounds nml Abdomen: positive: Non-tender, Soft, Nml bowel sounds. negative: Guarding Skin: positive: Pallor Extremities: positive: No pedal edema Neurologic/Psychiatric: positive: Oriented x3 Palliative Care - POLST Patient has POLST: No Pain: Pain improved (Pain improved with increase of MS Contin to 45mg TID and hydromorpone 6mg every 4 hours as needed for pain. Present pain is 2-3/10. Goal level is 3-4/10 as functional.) - Palliative Care Discussion: The patient has had a positive response to dose increase of MS Contin. Patient's voadnym-ov-byk reports separately that the children in the home are calmer and the patient's spouse is able to get increased rest. Overall, there has been settling in the household with better pain management. However, the patient continues to have spikes of pain most specifically in the evenings. Discussed increase of MS Contin by 25% in the morning and evening however, the patient is hesitant about altering the MS Contin too much and wishes to have a more regimented use of the hydromorphone as a tool. And compromise. Will increase evening dose of MS Contin to provide additional coverage overnight to allow better sleep for all parties in the household and patient is agreeable. Patient experienced opioid induced constipation and presented to the emergency department after her home interventions were not adequately successful. The patient is aware that despite limited oral intake the utmost importance of having a daily, soft bowel movement to maximum every other day. And verbalized agreement would prefer bowel movements to be looser to ensure adequate bowel elimination. Given dose increase of MS Contin will also adjust senna regimen to ensure adequate defecation. Patient is looking at managing steps day by day. He is seeing improvement in his overall pain however, needs to get to the next step which is having his liver biopsy on 06/23 and the following week meeting with the surgeon at [facility] on 06/29. He remains quite anxious to have a definitive diagnosis to move forward and have a course of action as he has been unfortunately met with multiple delays and complications. Impression and Recommendations - Palliative Care Impression: This is a 60-year-old man with retroperitoneal lymphadenopathy and liver lesions concerning for metastatic cancer with symptom burden of pain of neoplastic origin and constipation. The patient would benefit from further dose titration of his MS Contin for pain management as well as dose adjustment of his bowel regimen with this adjustment in his pain regimen to prevent reoccurrence of opioid-induced constipation. Palliative care will continue to build rapport, explore goals of care, and meet on a regular basis for quality of life issues and high symptom burden. Recommendations/Counseling Done: 1. Pain of neoplastic origin. Patient titrated MS Contin 30 mg 3 times daily on 06/14/2021 and was further titrated on 06/15/2020 21 to 45 mg MS Contin 3 times daily. Given the patient is having increased pain with specifically overnight and hesitancy with big shifts in adjustment of his MS Contin will adjust evening dose and increase by approximately 25% to 60 mg in the evening. Continue MS Contin 45 mg in the morning and 45 mg in the afternoon. Patient has MS Contin 15 mg and 30 mg tablets within the home. Patient's MED moving forward will be 150. Continue hydromorphone 6 mg every 4 hours as needed for breakthrough pain. New Rx sent to [email or web address] pharmacy for hydromorphone in the form of 2 mg tablets for a 2-week supply. Continue to educate and reinforce to the patient and [id number] the role of MS Contin to stabilize the patient's pain and utilization of hydromorphone for breakthrough. Patient's and fbwjxng-cp-fux continue to record administration of medications in order to adjust MS Contin moving forward to optimize the patient's comfort. Reinforced to the patient today the need to have his opioid medication in a secure place as there are no children in the home with understanding verbalized. Narcan within the home. Based on the patient's definitive cancer diagnosis may consider u tilization of dexamethasone for additional support in the future if not a contraindication to his treatment plan. Continue to monitor and adjust pain regimen to optimize the patient's function recognizing and setting expectations unlikely to be pain-free. 2. Constipation. Opioid induced with sedentary lifestyle contributing. Continue to encourage daily ambulation to promote defecation. Continue MiraLAX 1 cap twice daily dissolved in 4 to 6 ounces of liquid. Continue 1 tablespoon of ground flaxseed dissolved in liquid daily. Increase senna 8.6 mg to 2 Tablets in the morning, 2 tablets in the afternoon and 3 tablets in the evening. Goal remains to have a daily, soft bowel movement. Reinforced to the patient and yjkhnuw-vf-brv that even with decreased oral intake continues to require a daily, soft bowel movement with understanding verbalized. Continue to monitor and adjust. 3. Metastatic cancer with retroperitoneal lymphadenopathy and liver metastases. Patient unfortunately contracted Covid19 which has delayed his work-up. Scheduled for liver biopsy on 06/23 and follow-up with oncology on 07/02. Continue to be followed by oncology. 4. Advanced care planning. Patient is presently following through in a stepwise fashion and is looking towards having a definitive diagnosis to know how to next proceed. He is appearing to be analytical in his decision-making. We will continue to provide support for the patient and his family moving forward and to tease out goals of care as Well as building rapport. Total time spent 50 minutes with greater than 50% of the spent in counseling coronation of care with the patient and kwtnrgp-oi-qjn, Sonny; examination of the patient, review of oncology notes; review of pain and symptom management as well as anticipatory guidance. Disclaimer: The chart note was formulated using voice recognition technology and unfortunately sound alike errors may occur.
== END 2021-06-21 15:11 | disposition home or self-care (01) ==
LOC: PC 15:10
PROVIDERS: ATTEND Nurse Practitioner Family
DX: Z51.5 Encounter for palliative care (principal); G89.3 Neoplasm related pain (acute) (chronic); R59.0 Localized enlarged lymph nodes; C78.7 Secondary malignant neoplasm of liver and intrahepatic bile duct; K59.03 Drug induced constipation; T40.2X5A Adverse effect of other opioids, initial encounter; Z86.16 Personal history of COVID-19; Z79.891 Long term (current) use of opiate analgesic
CPT/HCPCS: 99349

== ENCOUNTER 2021-06-28 14:45 | Outpatient (CLI) | payer OTHER ==
--- NOTE | 2021-06-28 19:23 | CONSULTATION NOTE ---
Palliative Care Follow Up - Referral Referring Provider: Dr. Talavera Time of Visit: [id number] Referral setting: Home Referral Reason: Pain of neoplasm/Constipation - Information Sources Records reviewed: Previous records reviewed History/Review of Systems obtained from: Patient, Family (spouse Stacey and brother in law Sonny) - History of Present Illness Update Brief HPI Update: This is a 60-year-old male who presents for initial palliative care consultation due to metastatic cancer with retroperitoneal lymphadenopathy and liver metastas es , Pain management, constipation within his home with his , Stacey and [id number], Sonny present. Provider wore N95. The patient unfortunately had approximately 1.5 months of abdominal pain before presenting to the emergency department on 04/27/[address] of the abdomen pelvis performed that demonstrated enlarged retroperitoneal lymph nodes with infiltration of surrounding fat as well as a nonspecific small hypoattenuating liver lesions and a focal thickening of the gallbladder fundus. The patient then had an attempted CT-guided liver biopsy on 05/14/2021 which was unsuccessful. His course has then been complicated as he developed shortness of breath and presented to [place] emergency department on 06/06 where he was diagnosed with Covid19+ as well as bilateral pulmonary emboli. He was discharged on 06/09 on Lovenox therapy. He reports during his hospital stay he had a PET scan that was inconclusive for the primary site of his metastases. He has a pending liver biopsy again scheduled on 07/07 in [place] That was delayed due to the patient's Covid19 status and now requires 30 days post-COVID for the procedure that has led to further frustration for the patient to obtain answers. In the interim, the patient has been having escalating pain. He has initially been trialed on hydrocodone/negative medicine and then transition to oxycodone and meloxicam. During his hospitalization at [facility] on 06/06 he was transitioned to MS Contin 30 mg twice daily in addition to hydromorphone 4 mg every 4 hours as needed for pain. Patient then had dose increased to 45 mg 3 times daily with significant improvement in his overall function however, we will continue to have bouts of pain escalation. He is taking hydromorphone 6 mg every 4 hours as needed for pain and taking on a pretty regular schedule. He does report that the pain is more tolerable. This is evidenced by the fact that he is left to the bedroom and is now in the living room in his recliner chair and is more engaged with the family. He finds his pain is at the worst from 10:30 PM to approximately 3 AM. He is sleeping more during the day. Last week, attempted to increase evening dose of MS Contin to 60 mg however, patient had a response with flushing, nausea and vomiting even though his temperature reported was approximately 98 F and had noted pruritus that subsequently resolved. After this instance palliative care GENERAL LOT ATTENDANT was notified and therefore MS Contin was reduced back down to 45 mg 3 times daily moving forward. Last week, the patient's consulted with [facility] turn down man given his limited oral intake. He feels that his muscle is "wasting away." He has now found that he can tolerate cream of wheat and had takeout from [employer] yesterday and today they. However, with increase in dairy products he has noticed increased phlegm and congestion. With increased phlegm and congestion he is increasing his water intake and leading to him voiding more regularly and with a subsequent mildly dry mouth. He did present to the emergency department on 06/17 due to constipation after failed attempts of Enemeez and Fleet enema within the home with this GENERAL LOT ATTENDANT. Pres ently, the patient's bowel movements are more regular and feels that he is defecating more adequately especially since he has had increase in his oral intake. Patient initially seen in his home and then transition to outside on the deck with family present. Mild distress noted due to pain however, significantly improved from previous evaluations. Past Medical History: Patient has a past medical history of chronic back pain, psoriasis, Covid19 05/2021, bilateral PE in 05/2021 on Lovenox therapy, history of alcohol abuse quit in 1990, retroperitoneal lymphadenopathy and liver metastases 04/2021. Social History - Living Situation Living arrangement: At home Living Situation: With family (spouse, Stacey and 3 children) Support System: Patient grew up in [place]. He purchases home on [address] [place] [address]. 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 Previously . to his present , Vera for 20 years. They have 3 children together. [id number], Sonny is presently supporting the family and providing assistance. Today, Sonny plans on being present "as long as necessary" to provide support to the family. To obtain a new recliner chair later this week as he is presenting himself more with the family. Made recommendations on where to obtain a bedside commode to utilize the frame over the toilet in the bathroom for more support and height. Medications/Allergies - Medications Home Medications: Ambulatory Orders Medication Instructions Recorded Confirmed HYDROmorphone [Dilaudid] 6 mg PO Q4H PRN 06/15/21 06/17/21 Morphine Sulfate ER [Ms Contin] 45 mg PO .5AM AND 11AM 06/15/21 06/17/21 Naloxone HCl [Narcan] MDD As directed 06/15/21 Ondansetron Odt [Zofran Odt] 4 mg PO Q6H PRN 06/15/21 06/17/21 Prochlorperazine Maleate 10 mg PO Q6H PRN 06/15/21 06/17/21 [Compazine] Senna [Senokot] 2 tab PO .5AM AND 11AM 06/15/21 06/17/21 polyethylene glycoL 3350 [Miralax] 17 g PO BID 06/15/21 06/17/21 Acetaminophen [Acetaminophen Extra 500 mg PO Q8H PRN 06/17/21 06/17/21 Strength] Ground Flaxseed 1 tbs PO DAILY MDD Dissolved in 06/17/21 water/juice Lovenox 100 mg SQ BID 06/17/21 Morphine Sulfate ER [Ms Contin] 60 mg PO .7PM 06/21/21 06/21/21 Senna [Senokot] 3 tab PO QPM 06/21/21 06/21/21 - Allergies Allergies/Adverse Reactions: Allergies Allergy/AdvReac Type Severity Reaction Status Date / Time Penicillins Allergy Intermediate Unknown Verified 06/17/21 13:31 Review of Systems - Constitutional Constitutional: reports: Fatigue (taking naps during the day), Poor appetite (see HPI), Weight loss (70 pound loss since February 2021). denies: Fever - Eyes Eyes: reports: Corrective lenses - Ears, Nose & Throat Ears, Nose & Throat: reports: Nasal congestion - Cardiovascular Cardiovascular: denies: Chest pain, Edema - Respiratory Respiratory: reports: Sputum production (noted with increased dairy in diet). denies: Wheezing - Gastrointestinal Gastrointestinal: reports: Abdominal pain, Constipation (see HPI--improved). denies: Abdominal distention, Vomiting - Genitourinary Genitourinary: reports: Frequency (due to increased fluid intake). denies: Dysuria - Musculoskeletal Musculoskeletal: denies: Assistive devices, Transfer issues - Neurological Neurological: reports: General weakness. denies: Headache - Endocrine Endocrine: denies: Diabetes type 2 - Hematologic/Lymphatic Hematologic/Lymph: reports: Other (+bilateral PEs on Lovenox) - All Other Systems All Other Systems: reports: Reviewed and negative Physical Exam - Vital Signs Temperature: 36.0 C Pulse Rate: 82 O2 Saturation: 97 (on RA) Blood Pressure: 138/79 - Physical Exam General Appearance: positive: Alert, Mild distress (leaning with hands on thighs as tripod position provides decrease in discomfort with abdominal pain) Eyes Bilateral: positive: Other (+corrective lenses) ENT: positive: No signs of dehydration Neck: positive: Trachea midline Cardiovascular: positive: Regular rate & rhythm, No murmur Respiratory: positive: No respiratory distress, Breath sounds nml Abdomen: positive: Non-tender, Soft (much improved from previous examinations), Nml bowel sounds. negative: Guarding Skin: positive: Pallor Extremities: positive: No pedal edema Neurologic/Psychiatric: positive: Oriented x3, Mood/affect nml Palliative Care - POLST Patient has POLST: No Pain: Comment (Pain tolerable with MS Contin 45 mg 3 times daily however, continues to have periods of spikes and difficulty sleeping overnight from approximately 10:30 PM to 3 AM and would benefit for further dose adjustment of MS Contin. Continues to utilize hydromorphone 6 mg every 4 hours as needed for pain.) Nausea: Mild (1-3) Anorexia: Moderate (4-6) Dyspnea: Mild (1-3) Sleep: Variable sleep pattern Constipation: Yes, Opoid induced - Palliative Care Discussion: Patient has had significant reduction in his overall pain to his abdomen however, would benefit from further dose adjustment of his MS Contin as he is having increased pain overnight to assist with sleeping. On last attempt x1 to increase evening dose of MS Contin the patient likely had a histamine response and therefore, would benefit from premedication prior to dose increase as patient has demonstrated on this occasion to be sensitive. Patient is open to trialing increase of MS Contin to 60 mg in the evening with premedication of Zofran and Benadryl. If positive response then would continue premedication for approximately 3 evenings. Patient would feel better doing a trial run with just Benadryl the night before to gauge his response. He is a very analytical individual and wishes to have as many scenarios available to him to plan accordingly with response for setting expectations. Impression and Recommendations - Palliative Care Impression: This is a 60-year-old man with retroperitoneal lymphadenopathy and liver lesions concerning for metastatic cancer with symptom burden of pain of neoplastic origin, anorexia and constipation. The patient would benefit from further dose titration of his MS Contin for pain management and is accepting of dose increase with pre-medication prior to administration to reduce histamine response. Palliative care will continue to build rapport, explore goals of care, and meet on a regular basis for quality of life issues and high symptom burden. Recommendations/Counseling Done: 1. Pain of neoplastic origin. Patient titrated MS Contin 30 mg 3 times daily on 06/14/2021 and was further titrated on 06/15/2020 21 to 45 mg MS Contin 3 times daily. Attempted to go to 60mg in the evening previously, but patient had histamine release after one dose and would benefit from pre-medication prior to dose increase. Tonight to take benadryl 25mg once as pre-trial. Given the patient is having increased pain with specifically overnight and hesitancy with big shifts in adjustment of his MS Contin will adjust evening dose and increase by approximately 25% to 60 mg in the evening. Continue MS Contin 45 mg in the morning and 45 mg in the afternoon. Patient has MS Contin 15 mg and 30 mg tablets within the home. Patient's MED moving forward will be 150. Then before dose increase on 06/29 for 60mg in the evening to take zofran 4mg and benadryl 25mg 1 hour before MS COntin 60mg for pre-medication to reduce symptoms. Would recommend doing this for 3 nights and then discontinue to allow body to adjust to increase dose. Continue hydromorphone 6 mg every 4 hours as needed for breakthrough pain. Continue to educate and reinforce to the patient and [id number] the role of MS Contin to stabilize the patient's pain and utilization of hydromorphone for breakthrough. Patient's and [id number] continue to record administration of medications in order to adjust MS Contin moving forward to optimize the patient's comfort. Reinforced to the patient today the need to have his opioid medication in a secure place as there are no children in the home with understanding verbalized. Narcan within the home. Based on the patient's definitive cancer diagnosis may consider utilization of dexamethasone for additional support in the future if not a contraindication to his treatment plan. Continue to monitor and adjust pain regimen to optimize the patient's function recognizing and setting expectations unlikely to be pain-free. 2. Constipation. Opioid induced with sedentary lifestyle contributing. Continue to encourage daily ambulation to promote defecation. Continue MiraLAX 1 cap twice daily dissolved in 4 to 6 ounces of liquid. Continue 1 tablespoon of ground flaxseed dissolved in liquid daily. Continue senna 8.6 mg to 2 Tablets in the morning, 2 tablets in the afternoon and 3 tablets in the evening. Goal remains to have a daily, soft bowel movement. Reinforced to the patient and [id number] that even with decreased oral intake continues to require a daily, soft bowel movement with understanding verbalized. Discussed bowel regimen will not have an immediate response after taking medication. Continue to monitor and adjust. 3. Dry mouth. Noted with increase dairy consumption for anorexia and protein calorie supplementation--however is not open to decreasing dairy consumption for reduction in symptoms. Recommendation for use of Biotene oral lozenges to reduce liquid consumption to reduce urinary frequency that causes increased abdominal pain. 4. Metastatic cancer with retroperitoneal lymphadenopathy and liver metastases. Patient unfortunately contracted Covid19 which has delayed his work-up. Scheduled for liver biopsy on 07/07 and follow-up with oncology on 07/02. Continue to be followed by oncology. 5. Advanced care planning. Patient is presently following through in a stepwise fashion and is looking towards having a definitive diagnosis to know how to next proceed. He is appearing to be analytical in his decision-making. We will continue to provide support for the patient and his family moving forward and to tease out goals of care as Well as building rapport. Total time spent 60 minutes with greater than 50% of the spent in counseling and coordination of care with the patient and family; review of bowel regimen; review of of adjustment of pain medication including premedication prior to dose adjustment; examination of patient; review of pain and symptom management and anticipatory guidance. Disclaimer: The chart note was formulated using voice recognition technology and unfortunately sound alike errors may occur.
== END 2021-06-28 14:46 | disposition home or self-care (01) ==
LOC: PC 14:45
PROVIDERS: ATTEND Nurse Practitioner Family
DX: Z51.5 Encounter for palliative care (principal); G89.3 Neoplasm related pain (acute) (chronic); C80.1 Malignant (primary) neoplasm, unspecified; C78.7 Secondary malignant neoplasm of liver and intrahepatic bile duct; C77.2 Secondary and unspecified malignant neoplasm of intra-abdominal lymph nodes; R63.0 Anorexia; K59.03 Drug induced constipation; T40.605A Adverse effect of unspecified narcotics, initial encounter; R68.2 Dry mouth, unspecified; I26.99 Other pulmonary embolism without acute cor pulmonale; Z86.16 Personal history of COVID-19; E11.9 Type 2 diabetes mellitus without complications; G89.29 Other chronic pain; M54.9 Dorsalgia, unspecified; L40.9 Psoriasis, unspecified; F10.11 Alcohol abuse, in remission; Z79.891 Long term (current) use of opiate analgesic; Z79.02 Long term (current) use of antithrombotics/antiplatelets; R35.0 Frequency of micturition
CPT/HCPCS: 99350

== ENCOUNTER 2021-07-05 15:05 | Outpatient (CLI) | payer OTHER ==
--- NOTE | 2021-07-05 20:00 | CONSULTATION NOTE ---
Palliative Care Follow Up - Referral Referring Provider: Dr. Cardoso Time of Visit: [id number] Referral setting: Home Referral Reason: Pain of neoplastic origin/Edema/Constipation - Information Sources Records reviewed: Previous records reviewed History/Review of Systems obtained from: Patient, Family (ELIGIO Dennis and , Stacey) - History of Present Illness Update Brief HPI Update: This is a 60-year-old male who presents for follow-up due to metastatic cancer with retroperitoneal lymphadenopathy, liver metastases, pain of neoplastic origi n, constipation and swelling within his home with his , Stacey and [id number] Sonny present. Provider wore N95 mask. The patient unfortunately had approximately 1.5 months of abdominal pain before presenting to the emergency department on 04/27/[address] of the abdomen and pelvis performed that demonstrated enlarged retroperitoneal lymph nodes with infiltration of surrounding fat as well as a nonspecific small hypoattenuating liver lesions and focal thickening of the gallbladder fundus. The patient then had an attempted CT-guided liver biopsy on 05/14/2021 which was unsuccessful. He is scheduled to have a repeat attempt at the liver biopsy when 07/07 at [facility] after multiple delays due to his contracture of Covid19 in May 2021. The patient's course has been complicated with escalating pain. He was initially trialed on hydrocodone/acetaminophen and then transition to oxycodone and meloxicam. During his hospitalization at [facility] on 06/06 he transitioned to MS Contin 30 mg twice a day in addition to hydromorphone 4 mg every 4 hours as needed for pain. The patient has subsequently transitioned to MS Contin 45 mg in the morning, 45 mg in the afternoon, and 60 mg in the evening. Due to prior possible histamine response when his dose in the evening was increased last week he was premedicated with 25 mg Benadryl and Zofran that prevented flushing and nausea. He has tolerated this dose increase. He is presently taking hydromorphone 6 mg every 4 hours as needed for pain and taking approximately 4-5 times per day. Since increase of his MS Contin he has been able to rejoin the family and has had overall improvement of his pain. However, he continues to have abdominal pain and fullness that will not entirely subside. He has been combating constipation. However, presently having a bowel movement daily but presently, has not had 1 today. He reports positive flatus. Does feel full. Would benefit from addition of milk of magnesia and to initiate first dose today as well as increase of senna. The patient has had an increase in his overall oral intake however, appreciates muscle wasting. He is having difficulty sleeping at night and does not find that the Benadryl is entirely effective. In the last 2 to 3 days he has noted some swelling to his feet. He reports some fullness. No reported calf tenderness. He is no longer ambulating as frequently as he was before with his [id number] with this recent discomfort. The patient also shared today, that his testicles feel enlarged and this has been going on for several months. Thus, why he elected to obtain a bedside commode to have the base placed over the toilet so he had elevation. Denies any redness to the skin to the sites. Patient is seen in the living room resting in his new recliner chair with mild distress but overall, great improvement with comfort level from previous evaluations where he is able to sit still and not reposition frequently due to discomfort. Past Medical History: Patient has a past medical history of chronic back pain, psoriasis, Covid19 05/2021, bilateral PE in 05/2021 on Lovenox therapy, history of alcohol abuse quit in 1990, retroperitoneal lymphadenopathy and liver metastases 04/2021. Social History - Living Situation Living arrangement: At home Living Situation: With family (spouse, Stacey and 3 children) Support System: Patient grew up in [place].He has three sisters. He [place] home on [address] [place] [address]. 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 Previously . to his present , Stacey for 20 years. They have 3 children together. Loadmsw-lz-awn, Sonny is presently supporting the family and providing assistance. Stacey is originally from [place] and she and the patient have property in [place]. They travel to their property overseas every other year. [place] Stacey has difficulty with [place] and relies on her children at times to assist with translation. Medications/Allergies - Medications Home Medications: Ambulatory Orders Medication Instructions Recorded Confirmed HYDROmorphone [Dilaudid] 6 mg PO Q4H PRN 06/15/21 06/17/21 Morphine Sulfate ER [Ms Contin] 45 mg PO .5AM AND 11AM 06/15/21 06/17/21 Naloxone HCl [Narcan] MDD As directed 06/15/21 Ondansetron Odt [Zofran Odt] 4 mg PO Q6H PRN 06/15/21 06/17/21 Prochlorperazine Maleate 10 mg PO Q6H PRN 06/15/21 06/17/21 [Compazine] polyethylene glycoL 3350 [Miralax] 17 g PO BID 06/15/21 06/17/21 Acetaminophen [Acetaminophen Extra 500 mg PO Q8H PRN 06/17/21 06/17/21 Strength] Ground Flaxseed 1 tbs PO DAILY MDD Dissolved in 06/17/21 water/juice Lovenox 100 mg SQ BID 06/17/21 Morphine Sulfate ER [Ms Contin] 60 mg PO .7PM 06/21/21 06/21/21 Senna [Senokot] 3 tab PO TID 06/21/21 06/21/21 Magnesium Hydroxide [Milk of Q72H PRN MDD per package direction 07/05/21 Magnesia] - Allergies Allergies/Adverse Reactions: Allergies Allergy/AdvReac Type Severity Reaction Status Date / Time Penicillins Allergy Intermediate Unknown Verified 06/17/21 13:31 Review of Systems - Constitutional Constitutional: reports: Fatigue (taking naps during the day and awake at night), Poor appetite (see HPI), Weight loss (70 pound loss since February 2021). denies: Fever - Eyes Eyes: reports: Corrective lenses - Ears, Nose & Throat Ears, Nose & Throat: reports: Nasal congestion (improved with use of benadryl nightly and wishes to continue using), Dry mouth (minor) - Cardiovascular Cardiovascular: reports: Edema (see HPI). denies: Chest pain - Respiratory Respiratory: denies: Wheezing - Gastrointestinal Gastrointestinal: reports: Abdominal pain, Constipation (last bowel movement yesterday but reports "feeling full"), Other (Minor improvement in appetite s/p nutritional consult). denies: Vomiting - Genitourinary Genitourinary: denies: Dysuria - Musculoskeletal Musculoskeletal: denies: Assistive devices, Transfer issues - Neurological Neurological: reports: General weakness. denies: Headache - Psychiatric Psychiatric: reports: Other (Insomnia) - Endocrine Endocrine: denies: Diabetes type 2 - Hematologic/Lymphatic Hematologic/Lymph: reports: Other (+bilateral PEs on Lovenox) - All Other Systems All Other Systems: reports: Reviewed and negative Physical Exam - Vital Signs Temperature: 36.4 C Pulse Rate: 77 O2 Saturation: 97 (on RA) Blood Pressure: 149/88 (left wrist ) - Physical Exam General Appearance: positive: Alert, Mild distress (due to pain, but able to sit still and not reposition for the longest time since began following) Eyes Bilateral: positive: Other (+corrective lenses) ENT: positive: No signs of dehydration Neck: positive: Trachea midline Cardiovascular: positive: Regular rate & rhythm, No murmur Respiratory: positive: No respiratory distress, Breath sounds nml. negative: Rales Abdomen: positive: Non-tender, Soft, Nml bowel sounds, Distended (mild). negative: Guarding Skin: positive: Pallor Extremities: positive: Pedal edema (trace BLE edema, non pitting) Neurologic/Psychiatric: positive: Oriented x3, Mood/affect nml Palliative Care - POLST Patient has POLST: No Pain: Comment (Pain tolerable so he is able to be with his family with MS contin 45mg in AM, 45mg in PM and 60mg in the evening. Continues on hydromorphone 6mg every 4 hours as needed for pain.) Tiredness/Fatigue: Moderate (4-6) Nausea: Mild (1-3) Anorexia: Moderate (4-6) Dyspnea: Mild (1-3) Anxiety: Comment (Insomnia) Sleep: Variable sleep pattern Constipation: Yes, Opoid induced - Palliative Care Discussion: The patient is reporting increased fullness to his abdomen despite defecation yesterday but none today. Would benefit from titration of his bowel regimen to senna 3 tablets 3 times daily in addition to his MiraLAX and ground flaxseed. Did advise to continue ambulation for stimulation of peristalsis. Today, the patient shared that he has had 1 going scrotal edema for several months and is reporting increased discomfort to the area and in the last few days has developed some mild lower extremity edema. This is likely due to retroperitoneal lymphadenopathy. Patient prefers to avoid additional medication at this time and will trial interventions for symptom management with a jockstrap for support as well as compression stockings for her bilateral lower extremities. Patient is having episodes of in insomnia and this is likely due to his sleeping during the day and being up at night. His vmksksl-ks-iid separately shared that the patient spouse is unaware that he has a cancer diagnosis and at the present time would avoid addressing the spouse regarding this until a definitive diagno sis has been made. The patient's [id number] expresses that he has concerns about the outcome of the liver biopsy and in periods of heightened anxiety in the evenings the ubcwnbt-[id number] has been able to calm the patient down with soothing touch and redirection. The patient is likely demonstrating increased anxiety due to pending biopsy and moving forward with information and plan of care. He has been the provider of the family and a strong individual and since the 1 set of his symptoms he has had a deterioration of his muscle mass and has been symptomatic with advancement of his disease process. Impression and Recommendations - Palliative Care Impression: This is a 60-year-old man with retroperitoneal lymphadenopathy and liver lesions concerning for metastatic cancer with symptom burden of pain of neoplastic origin, constipation, insomnia and anxiety. Patient would benefit from further titration of bowel regimen to reduce constipation. He is now presenting with mild edema to the lower extremities as well as to the scrotum per report. Interventions outlined below. Palliative care will continue to build rapport, explore goals of care, and meet on a regular basis for quality of life issues and high symptom burden. Recommendations/Counseling Done: 1. Edema bilateral lower extremity and appreciated to scrotum. Due to retroperitoneal lymphadenopathy. Encourage patient to elevate lower extremities at rest. Advised to obtain can compression stockings cqil-[id number]-[id number] apply in the a.m. and remove in the evening. Advised to utilize jockstrap for comfort and to utilize during daytime hours. They wishes to avoid pharmacologic interventions but if becomes symptomatic may consider low-dose diuretic however, unclear if this would provide relief due to underlying etiology. 2. Constipation. Opioid induced with sedentary lifestyle contributing. Continue to encourage daily ambulation to promote defecation. Given feeling of fullness advised to take milk of magnesia x1 dose today as directed on package. Moving forward if no bowel movement in 3 days and advised to take dose of milk of magnesia. Increase senna to 3 tablets 3 times daily. Continue MiraLAX 1 cap twice daily dissolved in 4 to 6 ounces of fluid. Continue 1 tablespoon of ground flaxseed is dissolved in liquid daily. Goal remains to have a daily, soft bowel movement. Continue to monitor and adjust. 3. Insomnia. Lately get exacerbated by the patient napping during the day as well as increased anxiety in the evening. Unable to fully tease out today the patient's underlying anxiety related to pending diagnosis and liver biopsy on 07/07. Discussed may continue forward with Benadryl 25 mg in the evening as sleep aid in addition to combating the patient's allergic rhinitis. Continue to encourage touch during episodes of exacerbation and may consider utilization of low-dose benzodiazepine such as alprazolam in the future For acute episodes of anxiety if this is in deed the contributing factor. 4. Pain of neoplastic origin. Patient titrated to MS Contin 30 mg 3 times daily 06/14/2021 and was further titrated on 06/15 to 45 mg MS Contin 3 times daily. Last increased MS Contin on 06/28 to MS Contin 45 mg p.o. 45 mg in the afternoon, and 60 mg in the evening. Patient has MS Contin 15 mg and 30 mg tablets within the home. Patient's MAD is 150 mg standing. Had a one-time episode of possible histamine response and tolerated premedication with dose adjustment will. Has no can within the home. Utilizes hydromorphone 6 mg every 4 hours as needed for breakthrough pain. Advised that if patient requires pain medication and 1 hour before 1 hour after MS Contin may administer. New Rx for hydromorphone sent to [facility] pharmacy in [place]. Based on the patient's definitive oncologic diagnosis may consider utilization of dexamethasone for additional support in the future if not a contraindication to his treatment plans. Continue to monitor and adjust pain regimen to optimize the patient's function back in rising and setting expectations that is unlikely to be entirely pain-free. 5. Metastatic cancer with retroperitoneal lymphadenopathy and liver metastases. Patient unfortunately contracted Covid19 which is further delayed his work-up. Scheduled for liver biopsy on 07/07/2021 then follow-up with surgeon on 07/09. Has follow-up with oncologist on 07/16. 6. Advanced care planning. Patient continues to be following a stepwise fashion and is looking for towards having a definitive diagnosis to know how to proceed next. Patient is the head of his household and based on the oncology diagnosis the patient's family will likely need additional support in [facility]. Fortunately, the patient's [id number]-eh-zdh has stepped in and is providing additional support. Patient recently retired and has much of his financial affairs in order. We will need to continue to tease out goals of care moving forward based on the patient's definitive diagnosis. Total time spent 75 minutes with greater than 50% of the spent in counseling and coordination of care with the patient and family; review of bowel regimen; review of pathophysiology of adenopathy related to swelling; medication management; examination the patient; supportive listening; review of pain and symptom management as well as anticipatory guidance. Disclaimer: The chart note was formulated using voice recognition technology and unfortunately sound alike errors may occur.
== END 2021-07-05 15:06 | disposition home or self-care (01) ==
LOC: PC 15:05
PROVIDERS: ATTEND Nurse Practitioner Family
DX: Z51.5 Encounter for palliative care (principal); G89.3 Neoplasm related pain (acute) (chronic); C80.1 Malignant (primary) neoplasm, unspecified; C78.7 Secondary malignant neoplasm of liver and intrahepatic bile duct; K59.00 Constipation, unspecified; M54.9 Dorsalgia, unspecified; R10.9 Unspecified abdominal pain; R53.1 Weakness; R59.0 Localized enlarged lymph nodes; R60.0 Localized edema; N50.89 Other specified disorders of the male genital organs; K59.03 Drug induced constipation; T40.605A Adverse effect of unspecified narcotics, initial encounter; G47.00 Insomnia, unspecified; F10.11 Alcohol abuse, in remission; Z86.16 Personal history of COVID-19; Z86.711 Personal history of pulmonary embolism; Z79.01 Long term (current) use of anticoagulants; Z79.891 Long term (current) use of opiate analgesic; Z79.899 Other long term (current) drug therapy
CPT/HCPCS: 99350

== ENCOUNTER 2021-07-14 09:10 | Outpatient (CLI) | payer OTHER ==
--- NOTE | 2021-07-14 13:47 | CONSULTATION NOTE ---
Palliative Care Follow Up - Referral Referring Provider: Dr. Brooke Cardoso Time of Visit: [id number] Referral setting: Home Referral Reason: Pain of neoplasm/Constipation/Advanced Care Planning - Information Sources Records reviewed: Previous records reviewed History/Review of Systems obtained from: Patient, Family (brother in law Sonny and spouse, Stacey) - History of Present Illness Update Brief HPI Update: This is a 60-year-old male who presents for follow-up due to metastatic cancer with retroperitoneal lymphadenopathy, liver metastases, pain of neoplastic origin, constipation and bilateral lower extremity swelling within his home with his , Vera and [id number], Sonny present. Provider wore N95 mask. The patient unfortunately had approximately 1.5 months of abdominal pain before presenting to the emergency department on 04/27/[address] of the abdomen and pelvis performed demonstrated enlarged retroperitoneal lymph nodes with infiltration of surrounding fat as well as a nonspecific small hypoattenuating liver lesions and focal thickening of the gall bladder fundus. He had an attempted CT-guided liver biopsy on 05/14/2021 which was unsuccessful. He unfortunately sustained a series of setbacks regarding his work-up due to diagnosis of bilateral pulmonary emboli as well as Covid19. He underwent a repeat CT-guided liver biopsy at [place] on 07/07/2021 that demonstrated adenocarcinoma CK7 diffusely positive, CK20 weakly positive, CDX2 positive, loss of NETWORK CONTRACTOR D4 expression. The patient and [id number] met with surgical oncologist this week for discussion regarding results of the biopsy and are aware there is no indication for operative intervention. The patient perceives that any interventions would be palliative in nature. He follows up with his medical oncologist this Monday for further discussions regarding interventions. The patient's pain is presently controlled and manageable. He is now focused on task and getting his affairs in order and feels as if he is in a good place with his pain regimen. 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 There was no in it advertent events that happened after this. Presently controlled on MS Contin 45 mg in the morning, 45 mg in the afternoon, 60 mg in the evening. He typically takes his hydromorphone 6 mg during the hours of 10 PM to 5 AM. He is reluctant to make any adjustments to his regimen at the present time. He had significant fatigue and slept well yesterday evening after he and his brother now or working in the [employer]. He is going through a lot of paperwork and plans to be with a foster winder next week. He reports early satiety and perceives abdominal distention. He utilize milk of magnesia last night and this was extremely and effective for approximately 3 waves. Feels that his constipation is management and has a plan in place. He continues to have intermittent difficulty sleeping at night and would benefit from additional sleep aid. He is presently continuing taking Benadryl prior to bedtime as well zofran. Request that patient discontinue zofran prior to his evening dose of MS Contin. Patient is seen in the living room in his recliner chair engaged, no visible distress outside of having to excuse himself wants to utilize the restroom and was able to sit calmly without position changes during the length of the visit. Past Medical History: Patient has a past medical history of chronic back pain, psoriasis, Covid19 05/2021, bilateral PE in 05/2021 on Lovenox therapy, history of alcohol abuse quit in 1990, retroperitoneal lymphadenopathy and liver metastases 04/2021. Social History - Living Situation Living arrangement: At home Living Situation: With family (spouse, Stacey and 3 children) Support System: Patient grew up in [place].He has three sisters. He purchases home on [address] [place] [address]. 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 Previously . to his present , Stacey for 20 years. They have 3 children together. Cihjimu-oh-uvs, Sonny is presently supporting the family and providing assistance. Stacey is originally from [place] and she and the patient have property in [place]. , Vera is now aware of cancer diagnosis as well as the couples oldest child who is 13. They have not told the youngest 2 children. The patient's 3 of 4 sisters are coming up Monday through Monday and his sister Yvonne who is the middle sister is going to be staying with the couple while the [id number]-[id number] has to attend to his own medical needs for 1 week. Medications/Allergies - Medications Home Medications: Ambulatory Orders Medication Instructions Recorded Confirmed HYDROmorphone [Ebenezerid] 6 mg PO Q4H PRN 06/15/21 06/17/21 Morphine Sulfate ER [Ms Contin] 45 mg PO .5AM AND 11AM 06/15/21 06/17/21 Naloxone HCl [Narcan] MDD As directed 06/15/21 Ondansetron Odt [Zofran Odt] 4 mg PO Q6H PRN 06/15/21 06/17/21 Prochlorperazine Maleate 10 mg PO Q6H PRN 06/15/21 06/17/21 [Compazine] polyethylene glycoL 3350 [Miralax] 17 g PO BID 06/15/21 06/17/21 Acetaminophen [Acetaminophen Extra 500 mg PO Q8H PRN 06/17/21 06/17/21 Strength] Ground Flaxseed 1 tbs PO DAILY MDD Dissolved in 06/17/21 water/juice Lovenox 100 mg SQ BID 06/17/21 Morphine Sulfate ER [Ms Contin] 60 mg PO .7PM 06/21/21 06/21/21 Senna [Senokot] 3 tab PO TID 06/21/21 06/21/21 Magnesium Hydroxide [Milk of Q72H PRN MDD per package direction 07/05/21 Magnesia] diphenhydrAMINE [Benadryl] 25 mg PO QPM 07/14/21 07/14/21 traZODone [Desyrel] 25 mg PO QPM PRN 07/14/21 07/14/21 - Allergies Allergies/Adverse Reactions: Allergies Allergy/AdvReac Type Severity Reaction Status Date / Time Penicillins Allergy Intermediate Unknown Verified 06/17/21 13:31 Review of Systems - Constitutional Constitutional: reports: Fatigue, Poor appetite (see HPI), Weight loss (70 pound loss since February 2021). denies: Fever - Eyes Eyes: reports: Corrective lenses - Ears, Nose & Throat Ears, Nose & Throat: reports: Nasal congestion, Dry mouth (minor) - Cardiovascular Cardiovascular: reports: Edema (see HPI). denies: Chest pain - Respiratory Respiratory: reports: Cough (when flat at night due to increased congestion--does not want to take any further medications). denies: Wheezing - Gastrointestinal Gastrointestinal: reports: Abdominal pain, Constipation (last bowel movement yesterday but reports "feeling full"), Early satiety. denies: Vomiting - Genitourinary Genitourinary: reports: Frequency (now has urinal for use overnight), Nocturia. denies: Dysuria - Musculoskeletal Musculoskeletal: reports: Assistive devices (walker) - Integumentary Integumentary: denies: Rash - Neurological Neurological: reports: General weakness, Memory problems (occasional brain fog reported). denies: Headache - Psychiatric Psychiatric: reports: Other (Insomnia) - Hematologic/Lymphatic Hematologic/Lymph: reports: Other (+bilateral PEs on Lovenox) - All Other Systems All Other Systems: reports: Reviewed and negative Physical Exam - Vital Signs Temperature: 36.5 C Pulse Rate: 90 O2 Saturation: 97 (on RA) Blood Pressure: 134/75 (left wrist) - Physical Exam General Appearance: positive: No acute distress, Alert Eyes Bilateral: positive: Other (+corrective lenses) ENT: positive: No signs of dehydration Neck: positive: Trachea midline Cardiovascular: positive: Regular rate & rhythm Respiratory: positive: No respiratory distress, Breath sounds nml. negative: Rales Abdomen: positive: Non-tender, Soft, Nml bowel sounds, Distended Skin: positive: Pallor Extremities: positive: Pedal edema (+trace BLE edema with compression socks in place) Neurologic/Psychiatric: positive: Oriented x3, Mood/affect nml, Other (Stoic in discussion) Palliative Care - POLST Patient has POLST: No Pain: Comment (stable with present regimen of MS COntin 45mg in AM, 45mg in Pm and 60mg in evening with hydromorphone 6mg every 4 hours PRN) Nausea: Mild (1-3) Anorexia: Moderate (4-6) Constipation: Yes, Opoid induced, Managed - Palliative Care Discussion: Now that the patient has had a successful liver biopsy and with diagnosis of adenocarcinoma of an unknown primary with metastatic and retroperitoneal lymphadenopathy as well as liver metastases he is focused on having his affairs in order for his and children. He is presently very task oriented and plans on meeting with a foster winder next week. He finds the present time that his pain is presently well controlled and no longer "fighting away." He is reluctant to make any dose adjustments of his MS Contin and typically is best to plant the seed regarding introduction of expectations and where you see a plan going to before making an adjustment and having time for the patient to contemplate this new regimen. At the present time, he does not want to make any adjustments to his MS Contin. He has shared his diagnosis with his spouse and eldest child. However, both he and his spouse have trepidation regarding sharing the diagnosis with her 2 youngest children. They are attempting to relate this to the loss of their grandmother and preparing them for a time when he will no longer be present in their lives. The patient is very pragmatic regarding this discussion and appears to be excepting of a terminal diagnosis that may come sooner rather than later. He is looking at the timeline and wishes to plan accordingly and would benefit from from prognostication from medical oncologist. He wishes to weigh benefits versus burdens of treatment versus no treatment and what his quality of life will appear to optimize his time with his family. Normalized the patient's feelings and appropriate grief. Set expectations regarding normalizing loss and for the children in the family. Results - Lab Results Lab results reviewed: Yes Lab and Imaging Results: Liver biopsy result 07/07/21 Impression and Recommendations - Palliative Care Impression: This is an unfortunate 60-year-old man with adenocarcinoma of unknown primary with metastatic and retroperitoneal lymphadenopathy with liver metastases with symptom burden of constipation, and insomnia, bilateral lower extremity edema and pain of neoplastic origin. Patient's bowel regimen is presently well controlled. Would benefit from introduction of low-dose trazodone as a tool to utilize if insomnia persists. Does not wish to have adjustment of pain regimen at the present time as symptoms are controlled and manageable. Palliative care will continue to build rapport, explore goals of care, provide care coordination and meet on a regular basis for quality of life issues and high symptom burden as well as advance care planning. Recommendations/Counseling Done: 1. Constipation. Open weight induced with sedentary lifestyle contributing. Continue to encourage daily ambulation to promote defecation. Advised to continue to take milk of magnesia x1 dose per package insert every 72 hours if no bowel movement. Continue senna 3 tablets 3 times daily. Continue MiraLAX 1 cap twice daily dissolved in 46 ounces of fluid. Continue 1 tablespoon of ground flaxseed dissolved in liquid daily. Goal remains to have a daily, soft bowel movement. Continue to monitor and adjust bowel regimen. 2. Insomnia. Continues on Benadryl 25 mg in the evening as a sleep aid in addition to combating the patient's allergic rhinitis. Reviewed initiation of trazodone 25 mg in the evening as needed for insomnia and patient wishes to have this available as a tool in the tool box. Reviewed purpose, dose, and side effects with understanding verbalized. Rx sent to [facility] pharmacy. No evidence of anxiety on examination today. 3. Bilateral lower extremity edema. Due to retroperitoneal lymphadenopathy. Continue to encourage lower extremities at rest. Continue to utilize compression stockings applied in the morning and removed in the evening. Continue to monitor. 4. Pain of neoplastic origin. Patient continues on MS Contin 45 mg in the morning, 45 mg in the afternoon, 60 mg in the evening. Patient has MS Contin 15 mg and 30 mg tablets within the home. Patient M ED is 150 mg standing. Did have a possible histamine response and tolerated premedication with dose adjustment from increased from 45 mg to 60 mg MS Contin in the evening. Advised to discontinue Zofran premedication prior to evening MS Contin dose. Continues to utilize hydromorphone 6 mg every 4 hours as needed for breakthrough pain. Patient presently perceives that his pain is controlled and does not wish to make a dose adjustment at this time to MS Contin. Did discuss that in the future would increase MS Contin to 60 mg in the morning as noticed adjustment and would continue to adjust in small increments given the patient's linear and pragmatic approach. 5. Metastatic cancer with retroperitoneal lymphadenopathy and liver metastases. Patient status post liver biopsy on 07/07/2021 without surgical interventions available. To follow-up with medical oncologist on 07/16/2021. Patient would appreciate palliative care to provide additional support following that oncology appointment. 6. Advanced care planning. Patient continues to follow a stepwise fashion and now that he has a diagnosis of adenocarcinoma although it is unknown primary, he is task oriented in preparing for when he will no longer be present to care for his family. He is setting up finances and as available in upcoming appointments will need to establish healthcare power of trademark attorney and look at 5 wishes to the patient's can reflect and have his wishes known to his family members. This is especially important as the patient spouse has [place] as her second language to offer additional support. Patient wishes to weigh benefits versus burdens regarding presentation from medical oncologist and how he will proceed with any interventions recognizing that this is palliative in therapy as his likely options from his perception with the surgical oncologist. Palliative care will continue to assist with navigating and normalized feelings of loss and grief. Total time spent 75 minutes with greater than 50% of the spent in counseling and coordination of care with the patient and family; review of bowel regimen; review of pain regiment adjustments and setting expectations; normalizing feelings of grief and loss; medication management; examination of patient; review of pain is symptom management as well as anticipatory guidance. Contacted the patient's medical oncologist to update that patient would benefit from prognostication on follow-up visit. Disclaimer: The chart note was formulated using voice recognition technology and unfortunately sound alike errors may occur.
== END 2021-07-14 09:11 | disposition home or self-care (01) ==
LOC: PC 09:10
PROVIDERS: ATTEND Nurse Practitioner Family
DX: Z51.5 Encounter for palliative care (principal); G89.3 Neoplasm related pain (acute) (chronic); C80.1 Malignant (primary) neoplasm, unspecified; C78.7 Secondary malignant neoplasm of liver and intrahepatic bile duct; K59.03 Drug induced constipation; T40.2X5A Adverse effect of other opioids, initial encounter; G47.00 Insomnia, unspecified; R59.0 Localized enlarged lymph nodes; Z79.891 Long term (current) use of opiate analgesic
CPT/HCPCS: 99350

== ENCOUNTER 2021-07-19 15:00 | Outpatient (CLI) | payer OTHER ==
--- NOTE | 2021-07-20 17:50 | CONSULTATION NOTE ---
Palliative Care Follow Up - Referral Referring Provider: Dr. 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 Provider wore N95 mask. Patient unfortunately had approximately 1.5 months of abdominal pain before presenting to the emergency department on 04/27/[address] of the abdomen and pelvis performed that demonstrated enlarged retroperitoneal lymph nodes with infiltration of surrounding fat as well as a nonspecific small hypoattenuating liver lesions and focal thickening of the gallbladder fundus. The patient had an attempted CT-guided liver biopsy on 05/14/2021 which was unsuccessful. He then unfortunately developed complications with shortness of breath and was diagnosed on 06/06 with Covid19 as well as bilateral pulmonary emboli. He is presently on Lovenox injections for the pulmonary emboli. Presently without shortness of breath. This unfortunately delayed his work-up and underwent a repeat CT-guided liver biopsy at [facility] on 07/07/2021 that demonstrated adenocarcinoma CK7 diffusely positive, CK20 weakly positive, CDX2 positive, loss of centimeters a D4 expression. The patient met with his medical oncologist on 07/16 and after extensive discussion that this is an incurable disease patient has elected to focus on comfort care and hospice and a hospice referral is pending. The patient is at ease regarding this decision. He is supported by his family. During the patient's presentation he had been met with abdominal pain that was not well controlled until recently. Presently, he feels that he is in a place that his pain is manageable with utilization of MS Contin 45 mg in the morning, 45 mg in the afternoon and 60 mg in the evening. He is taking hydromorphone 6 mg every 4 hours as needed for breakthrough pain and is typically taking the scheduled overnight. However, yesterday he was able to do many tasks outside of the home including working on a pipe without increased pain levels and slept well through the night. The patient has early satiety and decreased oral intake overall but has been managing. He typically eats most of his breakfast consuming Cream of wheat. He is also supplementing with Ensure vanilla in addition. He is experiencing intermittent blood-tinged sputum nothing is shaye red blood. Intermittently experiencing brain fog. His and family keep track of symptoms in a diary log that all parties can reference. This has been assistive. Patient is presently reporting his bowels are well managed. He is presently taking senna 3 tablets 3 times daily in addition to MiraLAX 1 cap twice a day. Intermittently utilizing milk of magnesia if needed. He is reporting issues of bowel movements and no need to further titrate at the present time. Patient seen the living room in his recliner engaged, no visible distress outside of having to excuse himself wants to utilize the restroom. Calm and articulate. 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 Social History - Living Situation Living arrangement: At home Living Situation: With family (spouse, Stacey and 3 children) Support System: Patient grew up in [place]. He has 3 sisters. 1 brother is . He purchased his home on [address] [place] [address]. 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 Previously with 2 children from that marriage. to his present , Stacey, for approximately 20 years and they have 3 children together with the oldest being 13 years of age. Stacey's second language is [place] and the family has property in [place]. Stacey has good local support from [place] friends. Patient's [id number], Sonny has been present supporting the family and providing assistance. Over the weekend, the patient's sisters visited and Monday night there was a lot of activity with visiting. The patient is task oriented and getting his affairs in order including set up to meet with a director of sustainable design tomorrow. The patient's eldest son is aware of the cancer diagnosis. Medications/Allergies - Medications Home Medications: Ambulatory Orders Medication Instructions Recorded Confirmed HYDROmorphone [Dilaudid] 6 mg PO Q4H PRN 06/15/21 06/17/21 Morphine Sulfate ER [Ms Contin] 45 mg PO .5AM AND 11AM 06/15/21 06/17/21 Naloxone HCl [Narcan] MDD As directed 06/15/21 Ondansetron Odt [Zofran Odt] 4 mg PO Q6H PRN 06/15/21 06/17/21 Prochlorperazine Maleate 10 mg PO Q6H PRN 06/15/21 06/17/21 [Compazine] polyethylene glycoL 3350 [Miralax] 17 g PO BID 06/15/21 06/17/21 Acetaminophen [Acetaminophen Extra 500 mg PO Q8H PRN 06/17/21 06/17/21 Strength] Ground Flaxseed 1 tbs PO DAILY MDD Dissolved in 06/17/21 water/juice Lovenox 100 mg SQ BID 06/17/21 Morphine Sulfate ER [Ms Contin] 60 mg PO .7PM 06/21/21 06/21/21 Senna [Senokot] 3 tab PO TID 06/21/21 06/21/21 Magnesium Hydroxide [Milk of Q72H PRN MDD per package direction 07/05/21 Magnesia] diphenhydrAMINE [Benadryl] 25 mg PO QPM 07/14/21 07/14/21 traZODone [Desyrel] 25 mg PO QPM PRN 07/14/21 07/14/21 - Allergies Allergies/Adverse Reactions: Allergies Allergy/AdvReac Type Severity Reaction Status Date / Time Penicillins Allergy Intermediate Unknown Verified 06/17/21 13:31 Review of Systems - Constitutional Constitutional: reports: Fatigue (after increased activity), Poor appetite (see HPI), Weight loss (appx 70 pound loss since February 2021). denies: Fever - Eyes Eyes: reports: Corrective lenses - Ears, Nose & Throat Ears, Nose & Throat: denies: Sore throat - Cardiovascular Cardiovascular: reports: Edema (BLE edema, improved with use of compression socks daily). denies: Chest pain, Exertional dyspnea - Respiratory Respiratory: reports: Cough (intermittent with blood tinge sputum with streaks). denies: Wheezing - Gastrointestinal Gastrointestinal: reports: Abdominal pain, Constipation (improved, see HPI, bowel movement today), Early satiety. denies: Vomiting - Genitourinary Genitourinary: reports: Nocturia (using urinal overnight and this is helping with sleep). denies: Dysuria - Musculoskeletal Musculoskeletal: reports: Assistive devices (walker) - Integumentary Integumentary: denies: Rash - Neurological Neurological: reports: General weakness, Memory problems (occasional brain fog reported). denies: Headache - Psychiatric Psychiatric: reports: Other (Insomnia) - Hematologic/Lymphatic Hematologic/Lymph: reports: Other (+bilateral PEs on Lovenox) - All Other Systems All Other Systems: reports: Reviewed and negative (ROS supplemented by spouse, Stacey and sister, Yvonne) Physical Exam - Vital Signs Temperature: 36.5 C Pulse Rate: 73 O2 Saturation: 98 Blood Pressure: 148/80 - Physical Exam General Appearance: positive: No acute distress, Alert Eyes Bilateral: positive: Other (+corrective lenses) ENT: positive: No signs of dehydration Neck: positive: Trachea midline Cardiovascular: positive: Regular rate & rhythm Respiratory: positive: No respiratory distress, Breath sounds nml Abdomen: positive: Non-tender, Soft, Nml bowel sounds, Distended Skin: positive: Pallor Extremities: positive: Pedal edema (+trace BLE edema with compression socks in place) Neurologic/Psychiatric: positive: Oriented x3, Mood/affect nml, Other (Demonstrated normal expressions regarding grief and loss) Palliative Care - POLST Patient has POLST: Yes POLST Status: DNR, Comfort Measures Pain: Comment (Abdominal pain--manageable with present regimen of MS contin and hydromorphone) Nausea: Mild (1-3) Anorexia: Moderate (4-6) Constipation: Opoid induced, Managed Performance Status: PPS 60-70% - Palliative Care Discussion: After a series of unfortunate events the patient has now been diagnosed with adenocarcinoma of unknown primary of likely biliary tract with extensive liver metastases and retroperitoneal lymphadenopathy who has elected to focus on comfort care and quality of life rather than quantity of life given the incurable nature of his disease process. He perceives with the offer of pote ntial intervention such as chemotherapy would possibly extend his life but not allow quality of time. He is "tired of being sick" and does not wish to be "sick one third of the month" and not being able to focus on time with his family and building memories. He is at a point where he has his pain managed and he is feeling improved and wishes to continue on this path and be surrounded by family. He continues to be a task oriented and getting all of his affairs in order order. He also has concerns regarding his youngest children and normalizing for them. Provided dear dad book to write down memories as well as directed to YouTube videos such as "the fall of Monday the leaf" and "the invisible string" for review and to address prior to showing the children. The patient has found a sense of calm regarding his purpose and tasks moving forward. Unclear, once these tasks have been completed how his emotions will settle regarding the terminal state and diagnosis. He relays today that he has never been 1 of being "a big reader" however he perceives the "most important book as the Bible." Impression and Recommendations - Palliative Care Impression: This is an unfortunate 60-year-old gentleman with adenocarcinoma of unknown primary likely of biliary tract with metastatic liver metastases and retroperitoneal lymphadenopathy with symptom burden of constipation, pain of neoplastic origin and bilateral lower extremity edema. Presently, constipation is well controlled. He reports that his pain is managed at the present time and has some trepidation regarding any dose titration at present. Patient has elected to transition to hospice services. Palliative care will continue to provide support, pain and symptom management, care coordination until the patient transitions to hospice. Recommendations/Counseling Done: 1. Pain of neoplastic origin. Patient continues on MS Contin 45 mg in the morning, 45 mg in the afternoon, 60 mg in the evening. Patient has MS Contin 15 mg and 30 mg tablets within the home. Patient MAD is 150 mg standing. Did possibly have a histamine response when increased from 45 mg to 60 mg of MS Contin in the evening. Continues to take Benadryl 25 mg daily. Did discuss titration of MS Contin to 60 mg in the morning, 45 mg in the afternoon, 60 mg in the evening however, as the patient's regimen is presently controlled with MS Contin and hydromorphone as presently utilized he is hesitant to make a change with increase of the medication. Once transition to hospice may consider transition to methadone if patient is amenable. He does express some concerns regarding brain fog. Is in agreement for palliative care [employer] to do a status check on Monday and to see if would benefit from dose titration. Continue hydromorphone 6 mg every 4 hours as needed for breakthrough pain. As long as the patient is not in a pain crisis would continue to adjust MS Contin small increments given the patient's linear and pragmatic approach. 2. Constipation. Opioid induced with sedentary lifestyle contributing. Continue to encourage daily ambulation to promote defecation. May utilize milk of magnesia 30 mL every 72 hours if no bowel movement. Continue senna 3 tablets 3 times daily. Continue MiraLAX 1 cap twice daily dissolved in 4 to 6 ounces of liquid. Goal remains to have a daily, soft bowel movement. Continue to monitor and adjust bowel regimen. 3. Bilateral lower extremity edema. Due to peritoneal lymphadenopathy. Stable. Continue to encourage lower extremities at rest. Continue to utilize compression stockings applied in the morning and removed in the evening. Continue to monitor. 4. Grief. Presently, patient and spouse and sister are demonstrating appropriate signs of grief. Discussed tools and utilization regarding discussion of end-of-life and dying to the patient's children who will benefit from hospice support and bereavement. Provided copy of final gifts from hospice office for sister Yvonne to read and where to return book to hospice upon completion. Normalized the patient's feelings regarding loss. Supportive listening provided. 5. Metastatic cancer with retroperitoneal lymphadenopathy and liver metastases. Primary likely biliary tract in origin. Status post liver biopsy 07/07/2021. Has elected not to proceed with chemotherapy and instead to focus on quality of life and symptom management with support of hospice services. Discussion regarding hospice services and questions answered and addressed. Pending admission to hospice. 6. Advanced care planning. Patient completed POLST with medical oncologist as DN AR with comfort measures. Patient has proceeded with a stepwise fashion regarding management through this entire process and presently is proceeding with tasks to ensure all his affairs are in order. Did introduce today utilization of "5 wishes" so the patient may write down what he wishes for himself if medically if he is unable to speak for himself for all of his family members to utilize as a reference that he is open to this. Palliative care to continue to assist with navigating and normalizing feelings of Grief and loss. Will benefit from bereavement support from hospice. Total time spent 70 minutes with greater then 50% of the spent in counseling and coordination of care with the patient, spouse, and sister, Yvonne; review of pain and symptom management; review of hospice services and philosophy; normalizing feelings of grief and loss; support to assist discussion regarding and dying with patient's children; examination of patient; review of pain and symptom management as well as anticipatory guidance. Disclaimer: The chart note was formulated using voice recognition technology and unfortunately sound alike errors may occur.
== END 2021-07-19 15:01 | disposition home or self-care (01) ==
LOC: PC 15:00
PROVIDERS: ATTEND Nurse Practitioner Family
DX: Z51.5 Encounter for palliative care (principal); G89.3 Neoplasm related pain (acute) (chronic); C78.7 Secondary malignant neoplasm of liver and intrahepatic bile duct; R59.1 Generalized enlarged lymph nodes; C80.1 Malignant (primary) neoplasm, unspecified; Z86.711 Personal history of pulmonary embolism; Z79.01 Long term (current) use of anticoagulants; Z86.16 Personal history of COVID-19; F10.11 Alcohol abuse, in remission; Z66 Do not resuscitate; K59.03 Drug induced constipation; T40.605A Adverse effect of unspecified narcotics, initial encounter; Z79.891 Long term (current) use of opiate analgesic; R60.0 Localized edema; F43.21 Adjustment disorder with depressed mood
CPT/HCPCS: 99350

== ENCOUNTER 2021-07-26 09:30 | Outpatient (CLI) | payer OTHER ==
--- NOTE | 2021-07-26 11:54 | CONSULTATION NOTE ---
Palliative Care Follow Up - Referral Referring Provider: Dr. 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 Provider wore N95 mask. Patient unfortunately had approximately 1.5 months of abdominal pain before presenting to the emergency department on 04/27/[address] of the abdomen and pelvis performed that demonstrated enlarged retroperitoneal lymph nodes with infiltration of surrounding fat as well as a nonspecific small hypoattenuating liver lesions and focal thickening of the gallbladder fundus. The patient had an attempted CT-guided liver biopsy on 05/14/2021 which was unsuccessful. He then unfortunately developed complications with shortness of breath and was diagnosed on 06/06 with Covid19 as well as bilateral pulmonary emboli. He is presently on Lovenox injections for the pulmonary emboli. Presently without shortness of breath. This unfortunately delayed his work-up and underwent a repeat CT-guided liver biopsy at [facility] on 07/07/2021 that demonstrated adenocarcinoma CK7 diffusely positive, CK20 weakly positive, CDX2 positive, loss of centimeters a D4 expression. The patient met with his medical oncologist on 07/16 and after extensive discussion that this is an incurable disease patient has elected to focus on comfort care and hospice and a hospice referral is pending. The patient is at ease regarding this decision. He is supported by his family. Last week, the patient increased to MS Contin 45 mg in the morning, 60 mg in the afternoon, and 60 mg in the evening. Has tolerated this dose increase. Reports that he is pain is relatively well controlled and continues with hydromorphone 6 mg every 4 hours as needed for breakthrough pain. He is reporting some increased brain fog with the dose increase and set expectations that will likely improve. He reports shortness of breath with exertion and will have to frequently reposition. He is not complaining about of blood tinge sputum today. His family continues to keep a diary and track in his symptoms as well as medication administration and this has been positive. The patient continues to have defecation however, he reports that it is typically not formed with particles and does not feel as if he has adequately evacuated. Last administered milk of magnesia on Monday with out feeling full relief as he has in the past. Would benefit from osmotic laxative today. Due to abdominal distention he is having further decreased oral intake. He is typically having his cream of wheat in the morning as well as his Ensure supplementation. He is also reporting increased fatigue. Patient seen the living room in his recliner engaged, no visible distress outside of having to excuse himself wants to utilize the restroom. Calm and articulate. 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 Not vaccinated for COVID-19 Social History - Living Situation Living arrangement: At home Living Situation: With family (spouse, Stacey and 3 children) Support System: Patient grew up in [place]. He has 3 sisters. 1 brother is . He purchased his [address] on [address] in [address]. 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 Previously with 2 children from that marriage. to his present , Stacey, for approximatel y 20 years and they have 3 children together with the oldest being 13 years of age. Stacey's second language is Yemeni and the family has property in [place]. Stacey has good local support from [place] friends. Patient's [id number], Sonny has been present supporting the family and providing assistance. Sister of patient, Yvonne is also now at the home providing assitance. Medications/Allergies - Medications Home Medications: Ambulatory Orders Medication Instructions Recorded Confirmed HYDROmorphone [Dilaudid] 6 mg PO Q4H PRN 06/15/21 06/17/21 Morphine Sulfate ER [Ms Contin] 45 mg PO .5AM AND 11AM 06/15/21 06/17/21 Naloxone HCl [Narcan] MDD As directed 06/15/21 Ondansetron Odt [Zofran Odt] 4 mg PO Q6H PRN 06/15/21 06/17/21 Prochlorperazine Maleate 10 mg PO Q6H PRN 06/15/21 06/17/21 [Compazine] polyethylene glycoL 3350 [Miralax] 17 g PO BID 06/15/21 06/17/21 Acetaminophen [Acetaminophen Extra 500 mg PO Q8H PRN 06/17/21 06/17/21 Strength] Ground Flaxseed 1 tbs PO DAILY MDD Dissolved in 06/17/21 water/juice Lovenox 100 mg SQ BID 06/17/21 Morphine Sulfate ER [Ms Contin] 60 mg PO . AFTERNOON AND QPM 06/21/21 06/21/21 Senna [Senokot] 3 tab PO TID 06/21/21 06/21/21 Magnesium Hydroxide [Milk of Q72H PRN MDD per package direction 07/05/21 Magnesia] diphenhydrAMINE [Benadryl] 25 mg PO QPM 07/14/21 07/14/21 traZODone [Desyrel] 25 mg PO QPM PRN 07/14/21 07/14/21 Simethicone [Gas Relief] 1 tab PO TID PRN 07/21/21 07/21/21 Lactulose 15 ml PO BID PRN 07/26/21 07/26/21 dexAMETHasone [Decadron] 2 mg PO DAILY 07/26/21 07/26/21 - Allergies Allergies/Adverse Reactions: Allergies Allergy/AdvReac Type Severity Reaction Status Date / Time Penicillins Allergy Intermediate Unknown Verified 06/17/21 13:31 Review of Systems - Constitutional Constitutional: reports: Fatigue (after increased activity), Poor appetite (see HPI), Weight loss (appx 70 pound loss since February 2021). denies: Fever - Eyes Eyes: reports: Corrective lenses - Ears, Nose & Throat Ears, Nose & Throat: denies: Sore throat - Cardiovascular Cardiovascular: reports: Edema (BLE edema--using compression socks daily), Exertional dyspnea. denies: Chest pain - Respiratory Respiratory: denies: Cough, Wheezing - Gastrointestinal Gastrointestinal: reports: Abdominal pain, Abdominal distention, Constipation (see HPI, bowel movement today during visit), Poor appetite, Early satiety, Other (+flatus; denies rectal discomfort). denies: Rectal bleeding, Nausea, Vomiting - Genitourinary Genitourinary: reports: Nocturia (using urinal overnight). denies: Dysuria - Musculoskeletal Musculoskeletal: reports: Assistive devices (walker) - Neurological Neurological: reports: General weakness, Memory problems (occasional brain fog reported). denies: Headache - Hematologic/Lymphatic Hematologic/Lymph: reports: Other (+bilateral PEs on Lovenox) - All Other Systems All Other Systems: reports: Reviewed and negative (ROS supplemented by spouse, Stacey and sister, Yvonne) Physical Exam - Vital Signs Temperature: 36.6 C Pulse Rate: 82 O2 Saturation: 97 (on RA) Blood Pressure: 112/64 (left arm) - Physical Exam General Appearance: positive: No acute distress, Alert Eyes Bilateral: positive: Other (+corrective lenses) ENT: positive: No signs of dehydration Neck: positive: Trachea midline Cardiovascular: positive: Regular rate & rhythm Respiratory: positive: No respiratory distress, Breath sounds nml, Rales (LLL) Abdomen: positive: Non-tender, Soft, Nml bowel sounds, Distended. negative: Guarding Skin: positive: Pallor Extremities: positive: Pedal edema (+trace BLE edema with compression socks in place) Neurologic/Psychiatric: positive: Oriented x3, Mood/affect nml Palliative Care - POLST Patient has POLST: Yes POLST Status: DNR, Comfort Measures Pain: Comment (Abdominal pain manageable with prsent regimen of MS contin and hydromorphone but increased reports of abdominal distention) Tiredness/Fatigue: Moderate (4-6) Nausea: Mild (1-3) Anorexia: Severe (7-10) Dyspnea: Moderate (4-6) Constipation: Opoid induced, Managed Performance Status: PS 60% - Palliative Care Discussion: Given the patient's extensive liver metastases he is likely experiencing abdominal discomfort due to this and would benefit from introduction of dexamethasone 2 mg daily for not only abdominal pain, wellbeing, energy, and support of anorexia. Purpose, dose, and side effects reviewed at length with the patient and family and in agreement for trial. Will have hospice services titrate accordingly. Patient continues to require further management of his bowel regimen. Will benefit when on service for hospice services as patient only took 1 dose of milk of magnesia without positive benefit on Monday and none through the weekend. Encourage may utilize milk of magnesia on a daily basis and we will also introduce lactulose as an additional tool within the home. Patient to take milk of magnesia 30 mL x 1 today and if not relieved adequately with defecation by this evening to take 1 dose of lactulose 10 g (15 mL (with understanding verbalized. Spouse and his sister did express concerns regarding the eldest child in the home, who is 13 years of age. He has a close relationship with the patient and there is concern for high risk of bereavement. Supported both the patient's sister and spouse regarding these concerns and advised to allow the patient's 13-year-old son to verbalize his concerns, fears, and have an open and space safe space to have these discussions. Will benefit from sheet metal layout worker for further support. Impression and Recommendations - Palliative Care Impression: This is an unfortunate 60-year-old gentleman with adenocarcinoma of unknown primary likely of biliary tract with metastatic liver metastases and retroperitoneal lymphadenopathy with symptom burden of constipation, pain of neoplastic origin and anorexia. Requires further support for constipation management. Patient has elected to transition to hospice services. Palliative care will continue to provide support, pain and symptom management, care coordination until the patient transitions to hospice which is scheduled for . Recommendations/Counseling Done: 1. Pain of neoplastic origin. Patient tolerated transition to MS Contin 45 mg in the morning, 60 mg in the afternoon, 60 mg in the evening. Patient has MS Contin 15 mg and 30 mg tablets within the home. Patient MAD is 165 mg standing. Did possibly have a histamine response when increased from 45 mg to 60 mg of MS Contin in the evening, but not reported with recent dose increase. Continues to take Benadryl 25 mg daily. Once transition to hospice may consider transition to methadone if patient is amenable. He does express some concerns regarding brain fog. Continue hydromorphone 6 mg every 4 hours as needed for breakthrough pain. As long as the patient is not in a pain crisis would continue to adjust MS Contin small increments given the patient's linear and pragmatic approach. Addition of dexamethasone 2mg daily with food for pain due to liver Liver metastases and general wellbeing. 2. Constipation. Opioid induced with sedentary lifestyle contributing. Continue to encourage daily ambulation to promote defecation. May utilize milk of magnesia 30 mL every 72 hours if no bowel movement and if needed may use daily. To administer 30mL today. Continue senna 3 tablets 3 times daily. Continue MiraLAX 1 cap twice daily dissolved in 4 to 6 ounces of liquid. Goal remains to have a daily, soft bowel movement. Addition of lactulose 10 g per 15 mL administer 15 mL twice daily as needed for constipation. If patient does not have an effective bowel movement today will administered 15 mL of lactulose this evening. Continue to monitor and adjust bowel regimen. Patient and family to contact palliative care tomorrow regarding bowel regimen Via phone call. 3. Bilateral lower extremity edema. Due to peritoneal lymphadenopathy. Stable. Continue to encourage lower extremities at rest. Continue to utilize compression stockings applied in the morning and removed in the evening. Continue to monitor. 4. Metastatic cancer with retroperitoneal lymphadenopathy and liver metastases. Primary likely biliary tract in origin. Status post liver biopsy 07/07/2021. Has elected not to proceed with chemotherapy and instead to focus on quality of life and symptom management with support of hospice services. Discussion regarding hospice services and questions answered and addressed. Pending admission to hospice. 5. Bilateral PEs due to metastatic disease. Presently on Lovenox injection. Will differ to hospice regarding continuation of Lovenox vs switching to oral anticoagulation. 6. Bereavement concerns. Concern regarding the patient's 3 young children that are 13 and under. Family and patient have been working on normalizing feelings of grief and will benefit from bereavement counselor as well as social work support to once hospice has been started. Normalized feelings of loss and grief today as well as provided supportive listening. 7. Advanced care planning. Patient completed POLST with medical oncologist as DN AR with comfort measures. Patient has proceeded with a stepwise fashion regarding management through this entire process. Total time spent 45 minutes with greater than 50% of this spent in counseling and coordination of care with patient, spouse and sister; bowel titration with new medication; review of pain and symptom management and anticipatory guidance. Disclaimer: The chart note was formulated using voice recognition technology and unfortunately sound alike errors may occur.
== END 2021-07-26 09:31 | disposition home or self-care (01) ==
LOC: PC 09:30
PROVIDERS: ATTEND Nurse Practitioner Family
DX: Z51.5 Encounter for palliative care (principal); G89.3 Neoplasm related pain (acute) (chronic); C80.1 Malignant (primary) neoplasm, unspecified; C78.7 Secondary malignant neoplasm of liver and intrahepatic bile duct; R63.0 Anorexia; K59.03 Drug induced constipation; T40.2X5A Adverse effect of other opioids, initial encounter; R60.0 Localized edema; R59.0 Localized enlarged lymph nodes; I26.99 Other pulmonary embolism without acute cor pulmonale; Z79.01 Long term (current) use of anticoagulants
CPT/HCPCS: 99349